=== PATIENT | male | born 1950 | race Caucasian/White ===

== ENCOUNTER 2017-02-13 19:36 | Inpatient (IN) | payer OTHER ==
[~2017-02-13] VITALS: Ht 195.6 cm; Wt 135.6 kg
[~2017-02-13 19:36] MED LIST: AMOXICILLIN500 MG PO; AUGMENTIN 875875 MG PO; CEPHALEXIN500 MG PO; CLINDAMYCIN300 MG PO; DEPO-TESTADIOL10 ML IM; ELIQUIS5 MG PO; FUROSEMIDE20 M1 PO; IBU800 MG PO; KEFLEX 250MG C250 MG PO; KLOR-CON M1010 ME1 PO; ROXICODONE5 MG PO; TYLENOL TAB 32325 MG PO; VITAMIN B121000 MC2 PO; VITAMIN C1000 M1 PO; VITAMIN D31000 I1 PO; XARELTO20 MG PO
--- NOTE | 2017-02-13 19:50 | ED GENERAL ADULT ---
History of Present Illness General Chief Complaint: General Adult Stated Complaint: BIBA FOR ?INFECTION Source: patient, family, old records, EMS Exam Limitations: no limitations Vital Signs & Intake/Output Vital Signs & Intake/Output Vital Signs Date Time Temp Pulse Resp B/P B/P Pulse O2 O2 Flow FiO2 Mean Ox Delivery Rate 02/14 423 99.5 102 20 80/51 91 Room Air / 0326 101.0 110 22 108/66 98 Room Air / 0228 101.1 107 18 131/77 97 Room Air / 0119 101.7 101 131/77 06/04 0042 90/56 06/ 0042 100.1 106 20 80/55 95 Room Air / 2226 100.0 104 20 110/74 96 Room Air 02/13 2124 101.7 02/13 2123 101.7 118 20 125/80 96 Room Air 02/13 2009 101.8 02/13 1947 130 18 168/74 97 02/13 1945 101.8 ED Intake and Output 02/14 0000 02/13 1200 Intake Total 1100 Output Total Balance 1100 Intake, IV 1100 Patient 300 lb Weight Allergies Coded Allergies: bacitracin (Severe, HIVES 02/13/17) ceftriaxone (From ROCEPHIN) (Severe, HIVES 02/13/17) doxycycline (Severe, HIVES 02/13/17) erythromycin base (Severe, HIVES 02/13/17) gentamicin (Severe, HIVES 02/13/17) Uncoded Allergies: MEDS WHICH ENDS WITH "BASILIO" (Severe, HIVES 03/02/11) DETERGENTS (RASH 05/31/14) Reconcile Medications Furosemide 20 MG TABLET 1 TAB PO DAILY fluid overload (Reported) Potassium Chloride (Klor-Con M10) 10 MEQ TAB.ER.PRT 1 TAB PO DAILY supplements (Reported) Testosterone (Depo-Testadiol Inj 2 MG/Ml-50 MG/Ml) 200 MG/ML VIAL 1 ML IM Q3W HRT (Reported) Triage Nurses Notes Reviewed? yes HPI: 66 year old male presents to the ER with shaking chills which started a few hours ago. He was at the [facility] in [place] earlier today without any symptoms. He had some initial abdominal discomfort. Denies any vomtiing or diarrhea. Denies dysuria. He states that his right lower extremity wound is much improved. He just saw Dr. jerry on Wednesday stated that it looked much improved. Complain of some pain at the site. Past History Travel History Traveled to [place] past 21 day No Medical History Any Pertinent Medical History? 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 No Review of Systems Review of Systems Constitutional: Reports: chills, fever. EENTM: Reports: no symptoms. Respiratory: Denies: cough, short of breath, sputum production. Cardiovascular: Denies: chest pain, palpitations, peripheral edema. GI: Reports: nausea. Denies: abdominal pain, vomiting. Genitourinary: Reports: no symptoms. Musculoskeletal: Reports: see HPI (right leg pain). Skin: Reports: no symptoms. Neurological/Psychological: Reports: no symptoms. Hematologic/Endocrine: Denies: bruising, bleeding, polyuria, polydipsia. Immunologic/Allergic: Denies: splenectomy. All Other Systems: Reviewed and Negative Physical Exam Physical Exam General Appearance: well developed/nourished, alert, awake, anxious, moderate distress, severe distress Head: atraumatic, normal appearance Eyes: Bilateral: normal appearance, PERRL, EOMI. Ears, Nose, Throat: normal pharynx, hearing grossly normal Neck: normal inspection, supple, full range of motion Respiratory: normal breath sounds, chest non-tender, no respiratory distress Cardiovascular: tachycardia Peripheral Pulses: 1+ radial (R), 1+ radial (L) Gastrointestinal: normal bowel sounds, soft, non-tender Extremities: RIGHT LEG ERYTHEMA Neurologic/Psych: no motor/sensory deficits, awake, alert, oriented x 3 Skin: RIGHT ANKLE MEDIAL OPEN WOUND Core Measures ACS in differential dx? No CVA/TIA Diagnosis: No Severe Sepsis Present: Yes BC x2: Yes Lactic Acid x2: Yes IV ABX Broad Spectrum: Yes NS/LR Started: Yes Septic Shock Present: No Progress Differential Diagnoses I considered the following diagnoses in my evaluation of the patient: [Pneumonia , sepsis, also myelitis, cellulitis, wound infection, UTI] Plan of Care: Orders Procedure Date/time Status Regular Diet 02/14 B Active CBC WITHOUT DIFFERENTIAL 02/14 600 Active BASIC ELECTROLYTES PLUS BUN&CR 02/14 06 Active LACTIC ACID 02/14 0432 Active Pathway - chart 02/14 0233 Active Code Status 02/14 0233 Active Patient Data 02/14 0128 Active ED Holding Orders 02/14 0116 Active Admit to inpatient 02/14 0116 Active Vital Signs 02/14 0116 Active Code Status 02/14 0116 Complete US-EXT BILAT VENOUS DOPPLER 02/14 UNK Active House Staff 02/14 UNK Active Wound Care/Dressing 02/14 UNK Active VTE Mechanical Prophylaxis 02/14 UNK Active Vital Signs 02/14 UNK Active Elevate 02/14 UNK Active Add-on Test (ER Only) 02/13 211 Active Intake & Output 02/14 2020 Active LIPASE 02/13 1950 Complete AMYLASE 02/13 1950 Complete Telemetry/Applications Development Analyst 02/13 1946 Active CULTURE,URINE 02/13 1946 Active BLOOD CULTURE 02/13 1946 Active URINALYSIS 02/13 194 Complete TROPONIN LEVEL 02/13 1946 Complete PARTIAL THROMBOPLASTIN TIME 02/13 1946 Complete PROTHROMBIN TIME 02/13 194 Complete LACTIC ACID 02/13 194 Complete COMPREHENSIVE METABOLIC PANEL 02/13 194 Complete CBC WITHOUT DIFFERENTIAL 02/13 1946 Complete EKG 02/13 1946 Active Current Medications Sig/Phillip Start time Last Medication Dose Stop Time Status Admin Ampicillin Sodium/ 3,000 MG Q6 02/14 06 AC Sulbactam Sodium (Unasyn) Sodium Chloride 100 ML (Normal Saline 0.9%) Heparin Sodium 5,000 UNIT Q8 02/14 0600 AC (Porcine) Sodium Chloride 1,000 ML BOLUS ONE 02/14 0445 UNVr (Normal Saline 0.9%) 02/14 0544 Sodium Chloride 1,000 ML BOLUS ONE 02/14 0430 UNVr 02/14 (Normal Saline 0.9%) 02/14 0529 0441 Acetaminophen 650 MG Q6P PRN 02/14 0245 AC (Tylenol) Acetaminophen 1,000 MG Q6 PRN 02/14 0245 AC 02/14 (Ofirmev) 0249 Morphine Sulfate 2 MG Q4P PRN 02/14 024 AC (Morphine) Sodium Chloride 1,000 ML Q13H 02/14 245 AC 02/14 (Normal Saline 0.9%) 02/15 0144 0441 Laboratory Tests 02/14/17 0450: Lactic Acid Pending 02/14/17 0450: Sodium Pending, Potassium Pending, Chloride Pending, Carbon Dioxide Pending, Anion Gap Pending, BUN Pending, Creatinine Pending, BUN/Creatinine Ratio Pending , CBC w Diff Pending, WBC Pending, RBC Pending, Hgb Pending, Hct Pending, MCV Pending, MCH Pending, RDW Pending, Plt Count Pending, MPV Pending, PUBS MCHC Pending 02/13/172029: Urine Color YEL, Urine Clarity CLEAR, Urine pH 8.0, Ur Specific Rosser 1.015, Urine Protein NEG, Urine Ketones NEG, Urine Nitrite NEG, Urine Bilirubin NEG, Urine Urobilinogen 1.0, Ur Leukocyte Esterase NEG, Ur Microscopic EXAM NOT REQUIRED, Urine Hemoglobin NEG, Urine Glucose NEG 02/13/171949: Lactic Acid Cancelled 02/13/171949: Anion Gap 12, Estimated GFR > 60, BUN/Creatinine Ratio 16.4, Glucose 115 H, Lactic Acid 1.5, Calcium 9.9, Total Bilirubin 0.9, AST 28, ALT 57, Alkaline Phosphatase 90, Troponin I < 0.01, Total Protein 8.2, Albumin 4.9, Globulin 3.3, Albumin/Globulin Ratio 1.5, Amylase 54, Lipase 184, PT 11.3, INR 1.08, APTT 30, CBC w Diff NO MAN DIFF REQ, RBC 5.57, MCV 97.8 H, MCH 31.7 H, RDW 14.8 H, MPV 8.6, Gran % 91.2 H, Lymphocytes % 4.5 L, Monocytes % 2.9, Eosinophils % 1.3, Basophils % 0.1, Absolute Granulocytes 12.0 H, Absolute Lymphocytes 0.6 L, Absolute Monocytes 0.4, Absolute Eosinophils 0.2, Absolute Basophils 0, PUBS MCHC 32.5 L Microbiology 02/13 2030 URINE ROUT: Urine Culture - RECD 02/13 1955 BLOOD: Blood Culture - RECD 02/13 1950 BLOOD: Blood Culture - RECD 8:51 PM PATIENT WITH EPIGASTRIC/LUQ ABDOMINAL PAIN. WILL SEND TO [facility] FOR CT ABDOMEN. 12:30 PM PATIENT BACK FROM [facility] [address] REPORT STILL PENDING [facility] CALLED. NOT READ YET. NS BOLUS ORDERED. PATIENT FEELING MUCH BETTER, BP 90/50. 02/14/2017 1:16:[address] findings as discussed with the radiology transporter from [place]': Gallstones but no evidence of acute cholecystitis Bilateral nonobstructive renal tachycardia Left inguinal node crushable lymphadenitis 1.9 cm left upper pole renal hypodensity consider follow-up for renal mass No acute obstruction or inflammatory process Small hiatal hernia (CARLOS ESCOBEDO,RICHIE) Diagnostic Imaging: Viewed by Me: Radiology Read, CT Scan. Discussed w/RAD: Radiology Read, CT Scan. Radiology Impression: PATIENT: MATHEW SUH PRESENT AGE: 66 PATIENT ACCOUNT NO: [id number] : 51 LOCATION: [facility] ORDERING PHYSICIAN: RICHIE GONZALEZ MD SERVICE DATE: 02/13/17 EXAM TYPE: RAD - XRY -PORTABLE CHEST XRAY; [id number], RIGHT; XRY-TWO VIEW RIGHT ANKLE EXAMINATION: Chest portable, right ankle 2 views and right tibia and fibula 2 views. CLINICAL INFORMATION: Fever and right uterus. COMPARISON: None TECHNIQUE: Chest chest AP one view. Right ankle 2 views. Right tibia and fibula 2 views. of the right ankle. FINDINGS: Chest: There is mild cardiomegaly with mild prominence of pulmonary vascularity suggestive of mild congestion. The lungs are well-expanded without acute consolidation. No gross bony abnormality seen. Right tibia and fibula: there is no visible acute fracture or dislocation. There are soft tissue calcifications probably from varicose veins. Right ankle: There is a moderate size calcaneal heel and a small retrocalcaneal spur. There is moderate soft tissue swelling medial and lateral ankle. The ankle mortise and subtalar joints are normal. No visible fracture or dislocation seen. IMPRESSION: Cardiomegaly with mild prominence of pulmonary vascularity suspicious for mild congestion. Unremarkable right tibia and fibula. Soft tissue calcification probably from underlying varicose veins. Moderate calcaneal heel and a small retrocalcaneal spur. DICTATED BY: JOAN WHIPPLE MD DATE/TIME DICTATED:02/13/172020 PASTORAL ASSISTANT:ARACELI DATE/TIME TRANSCRIBED:02/13/172020 CONFIDENTIAL, DO NOT COPY WITHOUT APPROPRIATE AUTHORIZATION. <Electronically signed in Other Vendor System> SIGNED BY: JOAN WHIPPLE MD 02/13/172028, CT - GALLSTONES, NO ACUTE CHOLECYSTITIS, B/L NONOBS RENAL STONES, 1.9 CM LEFT UPPER POLE RENAL HYPOTENSIVTY, SMALL HIATAL HERNIA, ? LEFT INGUINAL NODE LYMPHADENITIS Initial ED EKG: SINUS TACHYCARDIA Departure Departure Time of Disposition: 116 Disposition: STILL A PATIENT Condition: Stable Clinical Impression Primary Impression: Sepsis Secondary Impressions: Cellulitis Referrals: MARK ESCOBEDO,QUINTIN Camacho (PCP/Family) Departure Forms: Customer Survey General Discharge Information Admission Note Spoke With: KRISTA DEXTER MD Documentation of Exam: Documentation of any treatments & extenuating circumstances including Concerns Regarding Discharge (functional status, medication knowledge or non-compliance, living conditions, etc.) that warrant an admission rather than observation: [IV FLUIDS, IV ABX, F/U BLOOD CULTURES, VASCULAR/WOUND CONSULT] Critical Care Note Critical Care Note Critical Care Time: non-applicable
[2017-02-13 20:07] LABS: ABSOLUTE BASOPHIL COUNT 0 /CUMM (0.0-0.2); ABSOLUTE EOSINOPHIL COUNT 0.2 /CUMM (0.0-0.7); ABSOLUTE LYMPH COUNT 0.6 /CUMM (1.2-3.4); ABSOLUTE MONOCYTE COUNT 0.4 /CUMM (0.10-0.60); BASOPHIL % 0.1 % (0.0-2.0); EOSINOPHIL % 1.3 % (0-5); HEMATOCRIT 54.5 % (42-52); MEAN CORPUSCULAR HGB 31.7 PG (27.0-31.0); MEAN CORPUSCULAR HGB CONC 32.5 G/DL (33.0-37.0); MEAN CORPUSCULAR VOLUME 97.8 FL (80.0-94.0); MEAN PLATELET VOLUME 8.6 FL (7.4-10.4); PLATELET COUNT 208 /CUMM (130-400); RBC DISTRIBUTION WIDTH 14.8 % (11.5-14.5); RED BLOOD CELL CT 5.57 /CUMM (4.70-6.10); WHITE BLOOD CELL COUNT 13.2 /CUMM (4.8-10.8)
[2017-02-13 20:10] LABS: GRANULOCYTE % 91.2 % (42.2-75.2)
[2017-02-13 20:15] LABS: PT 11.3 SEC (9.4-12.5); PTT 30 SEC (25-37)
--- NOTE | 2017-02-13 20:17 | NUR ---
PRESENTED TO ER VIA EMS FEVER CHILLS GEN NOT FEELING WELL 1 WEEK POST OF ON FOOT ULCERS SOA BY ER MD EKG PREFORMED IV MED LOCK EST RIGHT AC BLOOD WORK DRAWN INCLUDING BC X1 IV 1000 ML NS AT BOLUS TYLENOL 1 GM IVPB PORTABLE X-RAYS DONE
--- NOTE | 2017-02-13 20:29 | RADIOLOGY REPORT ---
EXAMINATION: Chest portable, right ankle 2 views and right tibia and fibula 2 views. CLINICAL INFORMATION: Fever and right uterus. COMPARISON: None TECHNIQUE: Chest chest AP one view. Right ankle 2 views. Right tibia and fibula 2 views. of the right ankle. FINDINGS: Chest: There is mild cardiomegaly with mild prominence of pulmonary vascularity suggestive of mild congestion. The lungs are well-expanded without acute consolidation. No gross bony abnormality seen. Right tibia and fibula: there is no visible acute fracture or dislocation. There are soft tissue calcifications probably from varicose veins. Right ankle: There is a moderate size calcaneal heel and a small retrocalcaneal spur. There is moderate soft tissue swelling medial and lateral ankle. The ankle mortise and subtalar joints are normal. No visible fracture or dislocation seen. IMPRESSION: Cardiomegaly with mild prominence of pulmonary vascularity suspicious for mild congestion. Unremarkable right tibia and fibula. Soft tissue calcification probably from underlying varicose veins. Moderate calcaneal heel and a small retrocalcaneal spur.
--- NOTE | 2017-02-13 20:33 | NUR ---
VOIDED 200 ML SPEC SENT
--- NOTE | 2017-02-13 21:00 | NUR ---
[facility] CALLED FOR PT TRANSPORT TO [facility] FOR CT SCAN RUN #[id number] ETA GIVEN WITH IN THE HOUR
--- NOTE | 2017-02-13 21:04 | NUR ---
RE-EVAL BY JOSE ESCOBEDO 2ND BC OBTAINED FD [id number] IVPB STARTED
--- NOTE | 2017-02-13 22:24 | NUR ---
TEMP IMPROVED NOW 100 EMS PRESENT FOR TRANS TO CT
--- NOTE | 2017-02-13 22:32 | NUR ---
PT TO [facility] FOR CT SCAN WITH [facility] AT THIS TIME
[2017-02-14] VITALS (7 sets, daily range): BP systolic 80–130; BP diastolic 50–70
--- NOTE | 2017-02-14 00:22 | NUR ---
PT RETURNS FROM CT SCAN AT [facility] AT THIS TIME. DISC GIVEN TO DR GONZALEZ
--- NOTE | 2017-02-14 00:45 | NUR ---
PT NOTED TO BE HYPOTENSIVE, AUTO B/P 80/55, MANUAL 90/56 RECONNECTED IVF N/S 1ST LITER BOLUS (HAD BEEN HALTED FOR TRANSPORT TO/FROM CT SCAN). PT WAS SITTING IN CHAIR AT TIME OF B/P CHECK. UPON GETTING BACK ON STRETCHER REPORTED SOME DIZZINESS. DR GONZALEZ MADE AWARE OF HYPOTENSION, WILL ORDER ADDITIONAL 500 ML N/S BOLUS AFTER THIS LITER COMPLETED.
--- NOTE | 2017-02-14 02:05 | NUR ---
HOUSESTAFF WITH PT
--- NOTE | 2017-02-14 02:30 | History & Physical ---
NATHALY COFFMAN 02/14/17 0230: General Information and HPI MD Statement: I have seen and personally examined MATHEW SILVERMAN and documented this H&P. The patient is a 66 year old M who presented with a patient stated chief complaint of shaking chills, abdominal discomfort Source of Information: patient, old records Exam Limitations: no limitations History of Present Illness: Mr Silverman is a 66-year-old man who is known to be in his usual state of health until 2 days ago. He has a past medical history of hypertension, chronic venous stasis ulcers( s/p multiple skin grafts ), left lower extremity DVT ( Tx w/ Xarelto). He came to [facility] with a chief concern of shaking chills, abdominal discomfort, bilateral lower extremity pain x 2 days. As per the patient, he developed abdominal discomfort 2 days ago, located in the center of the abdomen, occasional, severity 5-6/10, no aggravating or relieving factors. Reported lower extremity pain, bilateral, located in the calf region, 6/10, with no radiation, relieved upon rest. No change in erythema or tenderness in lower extremities. This a.m., a few hours after dining at an outdoor [employer] festival, he developed shaking chills and worsening abdominal discomfort. No nausea, vomiting or diarrhea. No dysuria, but reported discomfort in the right flank region. No shortness of breath, chest pain or palpitations. Reported myalgias; reported sick contact at work. Sees Dr. Manuel (vascular surgeon), Robel Gamboa MD (PCP). Allergies/Medications Allergies: Coded Allergies: bacitracin (Severe, HIVES 02/13/17) ceftriaxone (From ROCEPHIN) (Severe, HIVES 02/13/17) doxycycline (Severe, HIVES 02/13/17) erythromycin base (Severe, HIVES 02/13/17) gentamicin (Severe, HIVES 02/13/17) Uncoded Allergies: MEDS WHICH ENDS WITH "BASILIO" (Severe, HIVES 03/02/11) DETERGENTS (RASH 05/31/14) Home Med list Furosemide 20 MG TABLET 1 TAB PO DAILY fluid overload (Reported) Potassium Chloride (Klor-Con M10) 10 MEQ TAB.ER.PRT 1 TAB PO DAILY supplements (Reported) Testosterone (Depo-Testadiol Inj 2 MG/Ml-50 MG/Ml) 200 MG/ML VIAL 1 ML IM Q3W HRT (Reported) Past History Travel History Traveled to [place] past 21 day No Medical History Neurological: NONE EENT: NONE Cardiovascular: poor circulation ULCERS Respiratory: NONE Gastrointestinal: NONE Hepatic: NONE Renal: NONE Musculoskeletal: NONE Psychiatric: NONE Endocrine: NONE Blood Disorders: NONE Cancer(s): NONE 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 Ambulation: independent IADLs Independent: shopping, housework, finances, food prep, telephone, transportation , medication admin. Review of Systems Review of Systems Constitutional: Reports: see HPI. EENTM: Denies: blurred vision. Cardiovascular: Denies: chest pain, orthopena. Respiratory: Denies: cough, short of breath. GI: Reports: abdominal pain. Denies: constipation, diarrhea, melena, nausea, changes in stool. Genitourinary: Denies: discharge. Musculoskeletal: Denies: back pain. Skin: Denies: cysts, erythema. Neurological/Psychological: Denies: anxiety, depressed. Hematologic/Endocrine: Denies: bruising. Exam & Diagnostic Data Last 24 Hrs of Vital Signs/I&O Vital Signs Date Time Temp Pulse Resp B/P B/P Pulse O2 O2 Flow FiO2 Mean Ox Delivery Rate 02/15 228 101.1 107 18 131/77 97 Room Air 02/14 0119 101.7 101 131/77 / 0042 90/56 06/ 0042 100.1 106 20 80/55 95 Room Air 02/13 2226 100.0 104 20 110/74 96 Room Air 02/14 2124 101.7 02/13 2123 101.7 118 20 125/80 96 Room Air 02/13 2009 101.8 02/13 1947 130 18 168/74 97 02/13 1945 101.8 Intake & Output 02/14 0800 / 0000 02/13 1600 Intake Total 1100 Output Total Balance 1100 Intake, IV 1100 Patient 300 lb Weight Physical Exam General Appearance Alert, Oriented X3, Cooperative, no lymphadenopathy Skin No Rashes, No Breakdown Skin Temp/Moisture Exam: Warm/Dry Sepsis Skin Exam (color): Normal for Ethnicity, Cyanotic HEENT Atraumatic, PERRLA, EOMI Neck Supple, No JVD, No thryomegaly Lymphatic Cervical nl Cardiovascular Regular Rate, Normal S1, Normal S2, No Murmurs Lungs Normal Air Movement Abdomen Normal Bowel Sounds, Soft, No Tenderness Neurological Normal Gait, Normal Speech, Strength at 5/5 X4 Ext, Normal Tone Extremities No Cyanosis, erythema extending from the ankle upto the knee on the left leg small ulcer 1cm x 1cm on the medial aspect of left foot ulcer on the medial aspect of right foot 3cm x 3 cm Ulcers are not assoicated w/ any purulent discharge. Tenderness of the left lower extremity Vascular Pulses Symmetrical Sepsis Peripheral Pulse Location: Dorsalis Pedis Sepsis Peripheral Pulse Exam: Normal Sepsis Cap Refill Exam: <2 Sec Body Front and Back (Adult) 1) ulcer [id number] 2) ulcer 3cm x 3 cm 3) tender erythematous from ankle to knee Last 24 Hrs of Labs/Janes: Laboratory Tests 02/13/17 2030: Urine Color YEL, Urine Clarity CLEAR, Urine pH 8.0, Ur Specific [place] 1.015, Urine Protein NEG, Urine Ketones NEG, Urine Nitrite NEG, Urine Bilirubin NEG, Urine Urobilinogen 1.0, Ur Leukocyte Esterase NEG, Ur Microscopic EXAM NOT REQUIRED, Urine Hemoglobin NEG, Urine Glucose NEG 02/13/17 1950: Lactic Acid Cancelled 02/13/17 1950: Anion Gap 12, Estimated GFR > 60, BUN/Creatinine Ratio 16.4, Glucose 115 H, Lactic Acid 1.5, Calcium 9.9, Total Bilirubin 0.9, AST 28, ALT 57, Alkaline Phosphatase 90, Troponin I < 0.01, Total Protein 8.2, Albumin 4.9, Globulin 3.3, Albumin/Globulin Ratio 1.5, Amylase 54, Lipase 184, PT 11.3, INR 1.08, APTT 30, CBC w Diff NO MAN DIFF REQ, RBC 5.57, MCV 97.8 H, MCH 31.7 H, RDW 14.8 H, MPV 8.6, Gran % 91.2 H, Lymphocytes % 4.5 L, Monocytes % 2.9, Eosinophils % 1.3, Basophils % 0.1, Absolute Granulocytes 12.0 H, Absolute Lymphocytes 0.6 L, Absolute Monocytes 0.4, Absolute Eosinophils 0.2, Absolute Basophils 0, PUBS MCHC 32.5 L Microbiology 02/13 2030 URINE ROUT: Urine Culture - RECD 02/13 1955 BLOOD: Blood Culture - RECD 02/13 1950 BLOOD: Blood Culture - RECD Diagnostic Data EKG Results HR 132, QRS axis, no ST-T wave changes. CXR Results Cardiomegaly with mild prominence of pulmonary vascularity suspicious for mild congestion. Assessment/Plan Assessment: He is a middle-age man who was a past medical history of chronic venous stasis ulcers, is being evaluated for shaking chills, fever likely from lower extremity cellulitis. At the time of admission, temperature 101.8 (persistently elevated), heart rate 130, RR 18, BP 108/74 (remained on the lower side), 97% on room air. Lab findings indicated leukocytosis WBC 13.2 (granulocytosis 91.2%), hemoglobin 17.7 (likely from hormonal use), MCV 97.8, platelets 208, normal electrolytes and normal renal function. Lactate 1.5 (Lactate level pending), AST 128, ALT 57. Radiological findings-chest x-ray, x-ray tibia-fibula, x-ray right ankle did not reveal any acute pathology. Differential diagnoses: #1 left lower extremity cellulitis #2 gastroenteritis #3 viral infection Below is the problem list and plan: #1 fever, shaking chills-likely due to severe infection. Sepsis with likely source being left lower extremity ulcers/cellulitis. Physical findings, radiological findings are suggestive of left lower extremity cellulitis. Other source such as gastrointestinal, renal need to be ruled out. Patient was begun on Unasyn. Plan to continue the same antibiotic for now. May narrow antibiotic coverage pending clinical improvement and or culture results. Aggressive fluid resuscitation for adequate blood pressure control. Tylenol for fever. CT abdomen was suggestive of cholelithiasis, but did not have any physical findings suggestive of cholecystitis. Trend lactate And WBC count. Check HbA1c. #2 history of DVT, left lower extremity calf is swelling/pain-reports family history of venous thromboembolism, and also was treated with anticoagulant in the past. Obtain records pertaining information about testosterone use. Check venous Doppler to rule out any new thromboembolism. Subcutaneous anticoagulant for now. As Ranked By This Provider Problem List: 1. Sepsis 2. Cellulitis of left lower extremity Core Measures/Miscellaneous Acute Coronary Syndrome ACS Diagnosis: No Cerebrovascular Accident CVA/TIA Diagnosis: No Congestive Heart Failure CHF Diagnosis: No Venous Thromboembolism VTE Risk Factors: Age > 40 [facility] prophylaxis d/t: VTE low risk No VTE Pharm Prophylaxis d/t: No contraindications VTE Diagnosis: No VTE Type: NONE VTE Confirmed by (Test): NONE Severe Sepsis Severe Sepsis Present: Yes BC x2: Yes Lactic Acid x2: Yes IV ABX Broad Spectrum: Yes NS/LR Started: Yes Septic Shock Septic Shock Present: No Miscellaneous Documentation Attending Case Discussed With: KRISTA DEXTER MD Primary Care Physician: QUINTIN GAMBOA MD Patient sees these Specialists dr. Manuel Level of Patient Care: General Medicine FIDELINA CORDOVA 02/14/17 0313: Resident Review Statement Resident Statement: examined this patient, discussed with compliance intern, agreed with compliance intern, discussed with family, reviewed EMR data (avail), discussed with nursing , discussed with case mgmt, reviewed images, amended to note Other Findings: 66-year-old male with a past medical history of DVT (February 2015) currentky not on AC, chronic venous stasis ulcers, hypertension and obesity, osteopenia on testosterone depot injections, s/p vascular stent of RLE s/p venous ablation (F/ U with Dr. Manuel) presented to the ED with chief complaints of shaking chills that started a few hours ago. Patient states that he wore an ill- fitting shoe and developed a blister on his left foot. For the past 3-4 days he has been experiencing pain in his calfs that occurs on rest as well as on exertion. He states he went to a [facility] this [facility] and since then has been experiencing fevers, chills and has been feeling weak. States that this has happended to him before (2 years ago) and at that time he was diagnosed with cellulitis. He therefore decided to come to the ED. Of note, he followed up with Dr. Manuel on Wednesday, and was told that everything looked normal. Of note, patient has had multiple skin grafts placed, the last one being about a year ago. He endorses epigastric pain that has been going on for the past 2 days now. Denies any association with food, or radiation to the back. Took Pepcid, to no avail. Was told that he has GERD and has not been taking caffienated drinks such as coffee. Also endorsed R flank pain, but denies urinary frequency, hematuria, burning micturition. Denies any chest pain, shortness of breath, cough, palpitations, headcahe, blurry vision, alterations in bowel movements, vomiting, nausea. Vitals at the time of admission blood pressure 110/74, respiratory rate of 20, tachycardic to 118, MAXIMUM TEMPERATURE of 101.8F saturating 96% on room air. On physical exam he is morbidly obese, and in mild distress lying on the bed. HEENT revealed PERRLA, moist mucous membranes. Examination of neck did not reveal an elevated JVP, no LAD. Cardiovascular exam revealed normal S1, S2, no murmurs, rubs or gallops appreciated. Respiratory exam unremarkable with CTAB. Abdominal exam pertinent for tenderness to palpation in epigastrium and positive for right sided CVA tenderness, King's was negative. Neuro exam was grossly unremarkable. Examination of lower extermities pertinent for B/L lower extremity edema 3+, extending up to the knee, chronic venous stasis changes, with erythema of LLE, as well as a 3cm x2cm ulcer located along the R medial malleolus, and a 1cm x2cm ulcer located right below the left mallelous. Labs pertinent for leukocytosis with a white blood cell count of 13,200 with a left shift, H&H of 17.7/54.5, MCV elevated to 97.8 with a platelet count 208, 000. Serum chemistries pertinent for sodium 142, potassium of 4.3, bicarbonate of 30, anion gap of 12, the ON 18 with a creatinine of 1.1. Serum glucose elevated to 115. Lactic acid 1.5. LFTs unremarkable with an AST/ALD of 20/57, alkaline phosphatase of 90, troponin I less than 0.01. Serum amylase of 54, lipase of 184. INR 1.08 UA unremarkable. Chest x-ray revealed cardiomegaly with mild prominence pulmonary vascular and lymphatic suspicious for mild congestion. Xray of right tibia and fibula was unremarkable with soft tissue calcification and moderate Glenohumeral and small retrocalcaneal spur. In the ER he received normal saline bolus thousand pulse 1, Protonix 40 mg IV 1, Toradol 30 mg IV 1, Unasyn 3000 mg IV 1 and Tylenol thousand milligrams IV EKG revealed sinus tachycardia, with HR: 132, normal axis, no ST-T changes. CT Abdomen/Pelvis revealed gall staones with - cholecystitis, b/l non- opbstructing renal stoens, left inguinal node ? lymphadenitis, a R 1.9cm upper pole renal hypodensity ? renal mass, no acute obstruction, small hiatal hernia. Assessment and Plan Admit patient to [facility]. #Sepsis 2/2 cellultis of left foot vs ulcer - Most likely vs abdominal source vs renal (unlikley - however +ve CVA tednerness on R side, UA was unremarkable) Start him on Ceftaz 1000mg Q8 for cellulitis (patient has grown Pseudomonas in the past - hwoever, unsure if tehse were superficial wound cultures and traeting for Pseudomonas would be an overkill). Will obtain ID consult in AM and consider narrowing antibiotics He already received 1000ml of NaCL in the ER. Bolus him with another 2 L of NaCl , and monitor vitals. Low threshold for trasnfer to unit if BP continues to remain low. F/U blood cultures x2 a,nd urine cultures. Will hold Lasix 20mg daily for now, given soft blood pressures. F/U R lactic acid. Will obtain and X ray of the left foot to r/o NF given acute changes on LLE. #Elevated blood glucose - His HbA1c in November was impaired 6.2 - F/U Hba1C. #Pain in LE's with b/l swelling and chronic venous stasis changes. US Doppler of LE to r/o PE (given ST, LLE>>RLE, and pain with hx of clooting disorder in family and prev DVT) Holding Lasix for now given sepsis with soft blood pressures. - DVT Prophylaxis - Heaprin 5000 TID SC - Code Status - Full Code [facility], [facility] 02/14/17 0620: Attending MD Review Statement Attending Statement Attending MD Statement: examined this patient, discuss w/resident/PA/SUPERINTENDENT MARINE, agreed w/resident/PA/SUPERINTENDENT MARINE Attending Assessment/Plan: 66 yo M with chronic venous insufficiency s/p venous stenting, ablation, vein closure and grafts, chronic nonhealing ulcer of his right medial malleolus, RLE DVT off AC, osteopenia on testosterone depot, last admitted to [place] (Apr 2015 ) for LLE cellulitis, is here with c/o chills, calf pain and abdominal discomfort. He reports that the left calf is always more swollen and erythematous compared to right leg, and he follows up with Vascular/ Wound for his chronic nonhealing wounds. He went to a [employer] fair at [place] yesterday, ate mousakka and started having right sided abdominal/ epigastric discomfort, no nausea, vomiting or diarrhea. Took pepcid with no relief. GERD+. Denies urinary symptoms. Vitals: Tmax 101.8, tachycardic, BP 110/74 --> 80/55 that responded to fluids -- > 131/77. He dropped one more time, but is responding to fluid bolus, sats 98% RA. Chest clear, Heart S1S2 tachycardic, Abd soft, minimal epigastric tenderness , right CVA tenderness ?significance, King's negative. LE: chronic venous stasis, 2+ pitting edema, chronic ulcer right medal malleolus and LLE is erythematous, warm, tender with small punctate wound below medial malleolus. Labs: WBC 13.2, hemeconcentrated, macrocytosis, Creat 1.1, lactic acid normal, trop neg, amylase/lipase neg. UA neg. CXR: cardiomegaly with mild congestion. Right tibia/fibula xray unremarkable. EKG: Sinus tachycardia. CT abd/pelvis: cholelithiasis, no cholecystitis, bilateral nonobstructing renal calculi, left kidney upper pole density ?neoplasm, enlarged left inguinal LN, hiatal hernia. 1. Severe sepsis without septic shock 2/2 left lower extremity cellulitis with chronic venous stasis and chronic nonhealing ulcer to right foot. No evidence of pneumonia or UTI. No other areas concerning for SSTI. He probably has viral gastroenteritis, no e/o obstruction or colitis. Biliary colic is possible, but LFTs are normal. Renal colic is another possibility but calculi are nonobstructing, no obstructive uropathy, UA is clear. GM admit, panculture, IV fluids, monitor for fluid overload, patient received IV Unasyn in ER. His previous foot cultures have grown Pseudomonas, MSSA and Serratia. Will cover with Ceftaz for now, please consult ID in AM. If persistently hypotensive, low threshold for ICU transfer. Trend lactic acid. Image the right leg/ foot. Rule out DVT with LE dopplers. IV PPI. Obtain wound and Vascular consult. Manage diabetes. DVT ppx Hep SC. Full code. Update at 7.30 am: Notified by microbiology, patient is growing GPC in chain in one of the two sets of blood culture drawn on admission. Antibiotics changed to Unasyn.
--- NOTE | 2017-02-14 02:49 | NUR ---
Emergency Dept UC Admit Note: To be admitted to by DR. DEXTER with RT LOWER EXTREMITY CELLULITIS as the diagnosis, to 2NB #203-1 location. Nursing Agricultural Extension Educator and admitting notified 02/14/17 at 0243
--- NOTE | 2017-02-14 02:51 | NUR ---
MEDICATED WITH KEFZOL AND IV TYLENOL ORDERED
--- NOTE | 2017-02-14 03:23 | NUR ---
ASSUMED PRIMARY CARE, PREVIOUS NURSE ATTEMPTED REPORT PRIOR TO LEAVING, BUT WAS UNABLE TO GIVE REPORT. PT CO OF "SWEATING" ARMS WARM AND DRY FOREHEAD SL MOIST. LLE RED KNEE TO TOE FROM CHRONIC VENOUS STASIS. RLE ULCER TO ANKLE, LEG RED AND WRAN.
--- NOTE | 2017-02-14 03:47 | NUR ---
REPORT TO DESIREE AWARE THAT THIS RN ADVANCED HAS ONLY ASSUMED CARE 15 MINUTES AGO, REPORT GIVEN. AWAITING ASSISTANCE TO TRANSPORT.
--- NOTE | 2017-02-14 04:37 | Admission Certification ---
Admission Certification Certification Statement - As attending physician, I certify that at the time of - admission, based on clinical presentation, severity of - symptoms, need for further diagnostic testing and - therapeutic interventions, and risk of adverse outcomes - without in-hospital treatment, in my clinical assessment, - this patient requires an acute hospital stay for a minimum - of two nights or longer. I have also considered psychsocial - factors such as support system, advanced age, financial - issues, cognitive issues, and failed out-patient treatments, - past re-admission history, safety of patient, and lack of - compliance as applicable. Specific rationale supporting this admission is: Severe sepsis secondary to LLE cellulitis.
[2017-02-14 05:38] LABS: ABSOLUTE BASOPHIL COUNT 0 /CUMM (0.0-0.2); ABSOLUTE EOSINOPHIL COUNT 0 /CUMM (0.0-0.7); ABSOLUTE GRANULOCYTE CT 16.9 /CUMM (1.4-6.5); ABSOLUTE LYMPH COUNT 0.3 /CUMM (1.2-3.4); ABSOLUTE MONOCYTE COUNT 0.5 /CUMM (0.10-0.60); BASOPHIL % 0 % (0.0-2.0); EOSINOPHIL % 0 % (0-5); GRANULOCYTE % 95.4 % (42.2-75.2); MEAN CORPUSCULAR HGB 31.8 PG (27.0-31.0); MEAN CORPUSCULAR HGB CONC 32.9 G/DL (33.0-37.0); MEAN CORPUSCULAR VOLUME 96.8 FL (80.0-94.0); MEAN PLATELET VOLUME 9.1 FL (7.4-10.4); PLATELET COUNT 180 /CUMM (130-400); RBC DISTRIBUTION WIDTH 14.9 % (11.5-14.5); RED BLOOD CELL CT 4.85 /CUMM (4.70-6.10); WHITE BLOOD CELL COUNT 17.7 /CUMM (4.8-10.8)
[2017-02-14 05:44] LABS: HEMATOCRIT 46.9 % (42-52)
--- NOTE | 2017-02-14 08:24 | Event Note ---
Event Note Event Note: One set of BC growing [facility]CC. Will switch him to Unasyn and D/C Ceftaz.
--- NOTE | 2017-02-14 08:56 | NUR ---
NURSING NOTE: 0730AM ASSUMED CARE OF PT. VITALS RECHECK AND DOCUMENTED; TEMP 99.4. PT AWAKE, A/OX3, BLOOD CULTURES DRAWN AGAIN THIS AM BY MST PER MD ORDER. IV ANTIBX INFUSING AT THIS TIME PER MD ORDER. PT OOB TO CHAIR INDEP THIS AM. ASKED FOR VICODIN INSTEAD OF MORPHINE; MOD CALLED AND CHANGED IT. NEEDS IN REACH, SAFETY MAINTAINED. PT DENIES COMPLAINTS AT THIS TIME
--- NOTE | 2017-02-14 09:59 | NUR ---
NURSING NOTE: PT LEFT FLOOR VIA STRETCHER WITH DISTRIBUTION FOR L FOOT XRAY AND BLE US PER MD ORDER. PT AWAKE,A/OX3, IV PATENT, DENIES PAIN. PT IN SARAH COAT, DSGS TO ANKLES INTACT. AWAIT RETURN TO FLOOR. TICKET TO RIDE COMPLETE.
--- NOTE | 2017-02-14 12:07 | Cons- Vascular Surgery ---
General Information and HPI Consulting Request Date of Consult: 02/14/17 Requested By: ISACC ESCOBEDO,KRISTA History of Present Illness: 66-year-old male with chronic venous insufficiency. Patient has a long history of bilateral medial malleolar ulcers, due to chronic venous hypertension. Has history of venous stenting by Dr. Manuel. As has prior history of left leg DVT. Patient has been followed at the wound clinic for the ankle ulcers. has had skin grafting done in the past. Recently admitted with left leg pain, high fevers, abdominal pain. Patient states his left leg is chronically red, and swollen, that is unclear, if there was a significant change recently. Allergies/Medications Allergies: Coded Allergies: bacitracin (Severe, HIVES 02/13/17) ceftriaxone (From ROCEPHIN) (Severe, HIVES 02/13/17) doxycycline (Severe, HIVES 02/13/17) erythromycin base (Severe, HIVES 02/13/17) gentamicin (Severe, HIVES 02/13/17) Uncoded Allergies: MEDS WHICH ENDS WITH "BASILIO" (Severe, HIVES 03/02/11) DETERGENTS (RASH 05/31/14) Home Med List: Furosemide 20 MG TABLET 1 TAB PO DAILY fluid overload (Reported) Potassium Chloride (Klor-Con M10) 10 MEQ TAB.ER.PRT 1 TAB PO DAILY supplements (Reported) Testosterone (Depo-Testadiol Inj 2 MG/Ml-50 MG/Ml) 200 MG/ML VIAL 1 ML IM Q3W HRT (Reported) Current Medications: Current Medications Sig/Phillip Start time Last Medication Dose Route Stop Time Status Admin Acetaminophen 650 MG ONCE ONE 02/14 07 DC 02/14 PO 02/14 0701 0706 Acetaminophen 0 .STK-MED ONE 02/146 DC IV Acetaminophen 650 MG Q6P PRN 02/14 0245 AC PO Acetaminophen 1,000 MG Q6 PRN 02/14 0245 AC 02/14 IV 0249 Acetaminophen 0 .STK-MED ONE 02/13 2007 DC IV Acetaminophen 1,000 MG ONCE ONE 02/14 2000 DC 02/13 N/A 1 UNIT IV 02/13 Acetaminophen/ 1 TAB Q4P PRN 02/14 0800 AC 02/14 Hydrocodone Bitart PO 0841 Ampicillin Sodium/ 3,000 MG Q6H 02/14 0739 AC 02/14 Sulbactam Sodium IV 0842 Sodium Chloride 100 ML Ampicillin Sodium/ 3,000 MG Q6 02/14 600 DC Sulbactam Sodium IV Sodium Chloride 100 ML Ampicillin Sodium/ 0 .STK-MED ONE 02/13 2046 DC Sulbactam Sodium .ROUTE Ampicillin Sodium/ 3,000 MG ONCE ONE 02/13 2030 DC 02/13 Sulbactam Sodium IV 02/13 Sodium Chloride 100 ML Cefazolin Sodium 1,000 MG IQ8 02/14 0800 DC 02/14 IV 0249 Cefazolin Sodium 0 .STK-MED ONE 02/14 024 DC .ROUTE Ceftazidime 1,000 MG IQ8 02/14 0800 CAN IV Diphenhydramine HCl 25 MG Q6P PRN 02/14 07 DC IV Heparin Sodium 5,000 UNIT Q8 02/14 06 AC 02/14 (Porcine) SC 0626 Ketorolac 30 MG ONCE ONE 02/13 213 DC 02/13 Tromethamine IV 02/13 Ketorolac 0 .STK-MED ONE 02/13 2126 DC Tromethamine .ROUTE Morphine Sulfate 2 MG Q4P PRN 02/14 024 DC IV Pantoprazole Sodium 40 MG DAILY 02/14 1000 AC 02/14 IV 0841 Pantoprazole Sodium 40 MG ONCE ONE 02/13 2045 DC 02/13 IV 02/13 Pantoprazole Sodium 0 .STK-MED ONE 02/13 2045 DC IV Sodium Chloride 1,000 ML BOLUS ONE 02/14 0445 DC 02/14 IV 02/14 0544 0516 Sodium Chloride 1,000 ML BOLUS ONE 02/14 0430 DC 02/14 IV 02/14 0529 0441 Sodium Chloride 1,000 ML Q13H 02/14 0245 AC 02/14 IV 02/15 0144 0441 Sodium Chloride 1,000 ML BOLUS ONE 02/14 0100 DC 02/14 IV 02/14 0159 0248 Sodium Chloride 1,000 ML BOLUS ONE 02/14 2000 DC 02/13 IV 02/13 Past History Medical History Blood Transfusion Hx: No Neurological: NONE EENT: NONE Cardiovascular: poor circulation ULCERS Respiratory: NONE Gastrointestinal: NONE Hepatic: NONE Renal: NONE Musculoskeletal: NONE Psychiatric: NONE Endocrine: NONE Blood Disorders: NONE Cancer(s): NONE 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 Home Services at Home: None Smoking Status: Never Smoked ETOH Use: DAILY WINE Functional Ability ADLs Independent: dressing, eating, toileting, bathing. Ambulation: independent IADLs Independent: shopping, housework, finances, food prep, telephone, transportation , medication admin. Review of Systems Review of Systems Constitutional: Reports: chills, fever. EENTM: Denies: no symptoms. Cardiovascular: Denies: chest pain. Respiratory: Denies: short of breath. GI: Reports: abdominal pain. Musculoskeletal: Denies: back pain. Neurological/Psychological: Denies: no symptoms. Hematologic/Endocrine: Denies: bleeding. Exam & Diagnostic Data Vital Signs and I&O Vital Signs Date Time Temp Pulse Resp B/P B/P Pulse O2 O2 Flow FiO2 Mean Ox Delivery Rate 02/14 0748 99.4 / 0747 99.4 92 20 118/70 93 Room Air / 0706 101.0 / 0630 101.0 93 18 120/57 93 Room Air 06/04 0524 100/50 06/04 0430 99.5 06/04 0423 99.5 102 20 80/51 91 Room Air 06/04 0326 101.0 110 22 108/66 98 Room Air 06/04 0228 101.1 107 18 131/77 97 Room Air 06/04 0119 101.7 101 131/77 06/04 0042 90/56 06/04 0042 100.1 106 20 80/55 95 Room Air 06/03 2226 100.0 104 20 110/74 96 Room Air /4 101.7 /3 101.7 118 20 125/80 96 Room Air / 2009 101.8 02/13 194 130 18 168/74 97 / 194 101.8 Intake & Output 02/14 1600 / 0800 06/04 0000 / 1600 / 0800 / 0000 Intake Total 2000 1100 Output Total Balance 1999 1100 Intake, IV 2000 1100 Patient 136.078 kg 136.078 kg Weight Weight Reported by Patient Measurement Method Physical Exam General Appearance: well developed/nourished, no apparent distress, alert, awake Head: normal appearance Eyes: Bilateral: normal appearance. Neck: normal inspection Respiratory: normal breath sounds Cardiovascular: regular rate/rhythm Peripheral Pulses: 3+ dorsalis pedis (R), 3+ dorsalis pedis (L) Gastrointestinal: soft, non-tender Extremities: inflammation (bilateral lower leg hyperpigme), swelling (left leg edema, mild erythema) Neurologic/Psych: no motor/sensory deficits, awake, alert, oriented x 3 Assessment/Plan Assessment/Plan C6 Chronic venous insufficiency, chronic medial ankle ulcers b/l. Now with cellulitis of left leg, and fever. Wounds look OK, but left leg with erythema. Agree with IV abx for a few days for cellulitis, and then transition to PO abx. Upon discharge, compression bandages/stockings to both lower extremities. Upon discharge, F/u with Dr. Manuel during the week. Problem List: 1. Chronic venous hypertension (idiopathic) with inflammation of bilateral lower extremity 2. Cellulitis of left lower extremity Consult Acknowledgment - Thank you for your consult request.
--- NOTE | 2017-02-14 12:48 | Cons- Infect Disease ---
General Information and HPI Consulting Request Date of Consult: 02/14/17 Requested By: ISACC ESCOBEDO,KRISTA Reason for Consult: Positive blood cultures for gram-positive cocci in chains Source of Information: patient, old records History of Present Illness: This is a 66-year-old man with a history of venous insufficiency, status post multiple ablations and skin grafts, with a 30 year history of a nonhealing right medial malleolar ulcer, last hospitalized 2 years prior to admission with a right lower extremity cellulitis, at which time he was diagnosed with a right popliteal vein DVT, for which he was treated with Xarelto, which was discontinued several months prior to admission, with chronic left lower extremity swelling, admitted on February 14 with several days of bilateral calf pains and the acute onset of fevers, chills and abdominal discomfort. On admission he was febrile to 101.8. Laboratory data revealed a white blood cell count of 13, 000, BUN/creatinine 18 and 1.1, amylase/lipase normal, liver enzymes normal and coags normal. Urinalysis negative. Chest x-ray revealed mild cardiomegaly with mild prominence of pulmonary vascularity. X-ray of the right tibia and fibula was negative. X-ray of the right ankle revealed moderate soft tissue swelling. He was given a dose of Unasyn and then transferred to [facility] for a CTof the abdomen and pelvis, which apparently revealed cholelithiasis, bilateral nonobstructing renal calculi and a left upper pole density. He was subsequently placed on Cefazolin. He was transiently hypotensive and was given 3 L of fluid in the emergency room. This morning blood cultures 2 were reported positive for gram-positive cocci in chains, and he has been switched to Unasyn. He has remained febrile this morning and continues to complain of chills. He has had no further abdominal discomfort. Allergies/Medications Allergies: Coded Allergies: bacitracin (Severe, HIVES 02/13/17) ceftriaxone (From ROCEPHIN) (Severe, HIVES 02/13/17) doxycycline (Severe, HIVES 02/13/17) erythromycin base (Severe, HIVES 02/13/17) gentamicin (Severe, HIVES 02/13/17) Uncoded Allergies: MEDS WHICH ENDS WITH "BASILIO" (Severe, HIVES 03/02/11) DETERGENTS (RASH 05/31/14) Home Med List: Furosemide 20 MG TABLET 1 TAB PO DAILY fluid overload (Reported) Potassium Chloride (Klor-Con M10) 10 MEQ TAB.ER.PRT 1 TAB PO DAILY supplements (Reported) Testosterone (Depo-Testadiol Inj 2 MG/Ml-50 MG/Ml) 200 MG/ML VIAL 1 ML IM Q3W HRT (Reported) Past History Travel History Traveled to [place] past 21 day No Medical History Blood Transfusion Hx: No Neurological: NONE EENT: NONE Cardiovascular: chronic venous insuff Respiratory: NONE Gastrointestinal: diverticulitis Hepatic: NONE Renal: NONE Musculoskeletal: osteoporosis Psychiatric: NONE Endocrine: NONE Blood Disorders: DVT (right leg) Cancer(s): NONE 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 Home Services at Home: None Smoking Status: Never Smoked ETOH Use: DAILY WINE Functional Ability ADLs Independent: dressing, eating, toileting, bathing. Ambulation: independent IADLs Independent: shopping, housework, finances, food prep, telephone, transportation , medication admin. Review of Systems Review of Systems Respiratory: Reports: no symptoms. GI: Denies: diarrhea, nausea, vomiting. Genitourinary: Reports: no symptoms. All Other Systems: Reviewed and Negative Exam & Diagnostic Data Last 24 Hrs of Vital Signs/I&O Vital Signs Date Time Temp Pulse Resp B/P B/P Pulse O2 O2 Flow FiO2 Mean Ox Delivery Rate / 0748 99.4 / 0747 99.4 92 20 118/70 93 Room Air / 0706 101.0 06/04 0630 101.0 93 18 120/57 93 Room Air / 0524 100/50 06/ 0430 99.5 06/ 0423 99.5 102 20 80/51 91 Room Air / 0326 101.0 110 22 108/66 98 Room Air / 0228 101.1 107 18 131/77 97 Room Air / 0119 101.7 101 131/77 06/04 0042 90/56 02/14 0042 100.1 106 20 80/55 95 Room Air 02/13 2226 100.0 104 20 110/74 96 Room Air 02/14 2124 101.7 02/13 2123 101.7 118 20 125/80 96 Room Air 02/13 2009 101.8 02/13 1947 130 18 168/74 97 02/13 1945 101.8 Intake & Output 02/14 1600 02/14 0800 02/14 0000 Intake Total 2000 1100 Output Total Balance 1999 1100 Intake, IV 2000 1100 Patient 300 lb 300 lb Weight Weight Reported by Patient Measurement Method Physical Exam Other Physical Findings: He is awake and alert in no acute distress. MAXIMUM TEMPERATURE 101.8. Skin reveals no rash. HEENT exam is negative. Neck is supple with no adenopathy. Lungs are clear. Heart regular rhythm with no murmur. Abdomen is obese, soft, tender diffusely on palpation, with no guarding or rebound, positive bowel sounds. Back no CVA tenderness. Extremities chronic venous stasis changes both lower extremities; erythema, warmth and mild tenderness on the left leg; a small ulceration on the medial malleolus; a larger ulceration on the right medial malleolus with no surrounding inflammation; pulses 2+ and equal. Neuro is without focality. Last 24 Hours of Lab Results: Laboratory Tests 02/14 02/14 0450 0450 Chemistry Sodium (137 - 145 mmol/L) 140 Potassium (3.5 - 5.1 mmol/L) 4.1 Chloride (98 - 107 mmol/L) 102 Carbon Dioxide (22 - 30 mmol/L) 28 Anion Gap (5 - 16) 10 BUN (9 - 20 mg/dL) 20 Creatinine (0.7 - 1.2 mg/dL) 1.4 H Estimated GFR (>60 ml/min) 51 L BUN/Creatinine Ratio (7 - 25 %) 14.3 Hemoglobin A1c (4.2 - 5.8 %) Pending Lactic Acid (0.7 - 2.1 mmol/L) 1.7 Hematology CBC w Diff MAN DIFF ORDERED WBC (4.8 - 10.8 /CUMM) 17.7 H RBC (4.70 - 6.10 /CUMM) 4.85 Hgb (14.0 - 18.0 G/DL) 15.4 Hct (42 - 52 %) 46.9 MCV (80.0 - 94.0 FL) 96.8 H MCH (27.0 - 31.0 PG) 31.8 H RDW (11.5 - 14.5 %) 14.9 H Plt Count (130 - 400 /CUMM) 180 MPV (7.4 - 10.4 FL) 9.1 Gran % (42.2 - 75.2 %) 95.4 H Lymphocytes % (20.5 - 51.1 %) 1.6 L Monocytes % (1.7 - 9.3 %) 3.0 Eosinophils % (0 - 5 %) 0 Basophils % (0.0 - 2.0 %) 0 L Absolute Granulocytes (1.4 - 6.5 /CUMM) 16.9 H Segmented Neutrophils (42.2 - 75.2 %) 79 H Band Neutrophils (0.0 - 5.0 %) 17 H Absolute Lymphocytes (1.2 - 3.4 /CUMM) 0.3 L Lymphocytes (20.5 - 51.1 %) 4 L Absolute Monocytes (0.10 - 0.60 /CUMM) 0.5 Absolute Eosinophils (0.0 - 0.7 /CUMM) 0 Absolute Basophils (0.0 - 0.2 /CUMM) 0 Platelet Estimate (ADEQUATE) ADEQUATE Normocytic RBCs VERIFIED Normochromic RBCs VERIFIED PUBS MCHC (33.0 - 37.0 G/DL) 32.9 L 02/13 Chemistry Lactic Acid Cancelled Urines Urine Color (YEL,AMB,STR) YEL Urine Clarity (CLEAR) CLEAR Urine pH (5.0 - 8.0) 8.0 Ur Specific [place] (1.001 - 1.035) 1.015 Urine Protein (NEG,<30 MG/DL) NEG Urine Ketones (NEG) NEG Urine Nitrite (NEG) NEG Urine Bilirubin (NEG) NEG Urine Urobilinogen (0.1 - 1.0 EU/dl) 1.0 Ur Leukocyte Esterase (NEG) NEG Ur Microscopic EXAM NOT REQUIRED Urine Hemoglobin (NEG) NEG Urine Glucose (N MG/DL) NEG 02/13 1950 Chemistry Sodium (137 - 145 mmol/L) 142 Potassium (3.5 - 5.1 mmol/L) 4.3 Chloride (98 - 107 mmol/L) 100 Carbon Dioxide (22 - 30 mmol/L) 30 Anion Gap (5 - 16) 12 BUN (9 - 20 mg/dL) 18 Creatinine (0.7 - 1.2 mg/dL) 1.1 Estimated GFR (>60 ml/min) > 60 BUN/Creatinine Ratio (7 - 25 %) 16.4 Glucose (65 - 99 mg/dL) 115 H Lactic Acid (0.7 - 2.1 mmol/L) 1.5 Calcium (8.4 - 10.2 mg/dL) 9.9 Total Bilirubin (0.2 - 1.3 mg/dL) 0.9 AST (17 - 59 U/L) 28 ALT (21 - 72 U/L) 57 Alkaline Phosphatase (< 127 U/L) 90 Troponin I (<0.11 ng/ml) < 0.01 Total Protein (6.3 - 8.2 g/dL) 8.2 Albumin (3.5 - 5.0 g/dL) 4.9 Globulin (1.9 - 4.2 gm/dL) 3.3 Albumin/Globulin Ratio (1.1 - 2.2 %) 1.5 Amylase (30 - 110 U/L) 54 Lipase (23 - 300 U/L) 184 Coagulation PT (9.4 - 12.5 SEC) 11.3 INR (0.90 - 1.17) 1.08 APTT (25 - 37 SEC) 30 Hematology CBC w Diff NO MAN DIFF REQ WBC (4.8 - 10.8 /CUMM) 13.2 H RBC (4.70 - 6.10 /CUMM) 5.57 Hgb (14.0 - 18.0 G/DL) 17.7 Hct (42 - 52 %) 54.5 H MCV (80.0 - 94.0 FL) 97.8 H MCH (27.0 - 31.0 PG) 31.7 H RDW (11.5 - 14.5 %) 14.8 H Plt Count (130 - 400 /CUMM) 208 MPV (7.4 - 10.4 FL) 8.6 Gran % (42.2 - 75.2 %) 91.2 H Lymphocytes % (20.5 - 51.1 %) 4.5 L Monocytes % (1.7 - 9.3 %) 2.9 Eosinophils % (0 - 5 %) 1.3 Basophils % (0.0 - 2.0 %) 0.1 Absolute Granulocytes (1.4 - 6.5 /CUMM) 12.0 H Absolute Lymphocytes (1.2 - 3.4 /CUMM) 0.6 L Absolute Monocytes (0.10 - 0.60 /CUMM) 0.4 Absolute Eosinophils (0.0 - 0.7 /CUMM) 0.2 Absolute Basophils (0.0 - 0.2 /CUMM) 0 PUBS MCHC (33.0 - 37.0 G/DL) 32.5 L Last 24 Hours of Janes Results: Blood cultures February 13 positive for gram-positive cocci in chains Urine culture February 13 negative Blood cultures February 14 pending Diagnostic Data Recent Imaging Findings: Chest x-ray revealed mild cardiomegaly with mild prominence of pulmonary vascularity. X-ray of the right tibia and fibula negative. X-ray of the right ankle revealed moderate soft tissue swelling Assessment/Plan Assessment/Plan Impression: This is a 66-year-old man with venous insufficiency, status post multiple venous ablations, with a chronic, nonhealing ulcer on the right medial malleolus admitted early this morning after presenting to the emergency room with the acute onset of fevers, chills and abdominal discomfort and several days of bilateral calf pains following the development of a blister on the left medial malleolus, found on admission to be febrile with a leukocytosis and with blood cultures 2 reported positive for gram-positive cocci in chains. He appears to have a cellulitis of the left lower extremity, which is the most likely source of his sepsis. The cellulitis may have developed secondary to the ulceration on the medial malleolus and was facilitated by his underlying venous insufficiency. His abdominal pain and tenderness are of unclear significance. His CT scan of the abdomen and pelvis apparently did not reveal any acute intra-abdominal process, but will need to obtain the copies and report of this CT scan, particularly with the report of a left kidney upper pole density. Suggestion: 1. Obtain the CD and report of the CT scan of the abdomen and pelvis performed at [facility] last night 2. Elevation of the left leg 3. Further evaluation, for example right upper quadrant ultrasound, based on his clinical picture and CT report 4. Follow-up results of the Doppler study apparently done this morning 5. Follow-up results of recent blood cultures 6. Continue Unasyn 3 g IV every 6 hours pending above Consult Acknowledgment - Thank you for your consult request.
--- NOTE | 2017-02-14 13:00 | ULTRASOUND REPORT ---
EXAMINATION: US TRIPLEX OF LOWER EXTREMITIES, BILATERAL CLINICAL INFORMATION: Pain in calves, left greater than right. History of DVT. COMPARISON: Right lower extremity Doppler 04/23/2015. TECHNIQUE: Color-flow triplex imaging with spectral analysis and compression Doppler were performed on the lower extremities. FINDINGS: Respiratory variation and normal compression are noted throughout the lower extremities. The visualized common femoral vein, superficial femoral vein, profunda femoral vein, popliteal vein and visualized calf venous segments show no evidence of deep venous thrombosis. There is no Baron's cyst. IMPRESSION: No evidence of deep venous thrombosis involving the lower extremities.
--- NOTE | 2017-02-14 13:34 | NUR ---
nursing note: oral temp 101.1, pt drousy but arousable. at bedside, pt assisted back to bed, states "im cold and im tired because i didnt sleep well over night." bed alarm placed due to drowsiness, pt in agreement, iv tylenol given x1,will recheck temp in 1 hour. #137 aware.
--- NOTE | 2017-02-14 13:53 | PN- Att Addend ---
Attending Addendum Attending Brief Note 66-year-old male with chronic venous insufficiency status post stenting, nonhealing chronic ulcer on the right medial malleolus, was admitted last night with fever, chills, calf pain and abdominal discomfort. Was found to be in severe sepsis secondary to lower extremity cellulitis. He is growing gram positive cocci in chains in both sets of blood culture. Right lower extremity venous Doppler negative for DVT. Last CT scan of the abdomen and pelvis done at [facility] in April 2015 which showed cholelithiasis, bilateral nonobstructive renal stones. A CAT scan done at [place] last night showed gallstones without cholecystitis, bilateral nonobstructive renal stones, 1.9 upper pole renal hypodensity Currently patient is febrile, c/o GERD and epigastric discomfort. at the bedside. Patient denies any fever, chills, nausea, vomiting, still has some abdominal discomfort. Vital Signs Date Time Temp Pulse Resp B/P B/P Pulse O2 O2 Flow FiO2 Mean Ox Delivery Rate 02/14 1334 101.1 94 20 130/70 94 Room Air 06/04 0748 99.4 06/04 0747 99.4 92 20 118/70 93 Room Air 06/04 0706 101.0 06/04 0630 101.0 93 18 120/57 93 Room Air 06/04 0524 100/50 06/04 0430 99.5 06/04 0423 99.5 102 20 80/51 91 Room Air 06/04 0326 101.0 110 22 108/66 98 Room Air 06/04 0228 101.1 107 18 131/77 97 Room Air 06/04 0119 101.7 101 131/77 06/04 0042 90/56 06/04 0042 100.1 106 20 80/55 95 Room Air 06/03 2226 100.0 104 20 110/74 96 Room Air 06/03 2124 101.7 06/03 2123 101.7 118 20 125/80 96 Room Air 06/03 2008 101.8 06/03 1947 130 18 168/74 97 06/03 1945 101.8 Intake & Output /04 1600 / 0800 06/04 0000 Intake Total 2000 1100 Output Total Balance 1999 1100 Intake, IV 2000 1100 Patient 300 lb 300 lb Weight Weight Reported by Patient Measurement Method Physical exam Alert, awake, oriented 3, not in any distress Lungs-clear, no wheeze or rales Heart-S1-S2 heard normal, no murmur Abdomen- Generalized tenderness, more in the epigastric region Extremities-b/l LE edema, Chronic venous statis, erythematous Lt LE, ulcer on the Lt and Rt Medial melleolus Laboratory Tests 02/14 02/14 0450 0450 Chemistry Sodium (137 - 145 mmol/L) 140 Potassium (3.5 - 5.1 mmol/L) 4.1 Chloride (98 - 107 mmol/L) 102 Carbon Dioxide (22 - 30 mmol/L) 28 Anion Gap (5 - 16) 10 BUN (9 - 20 mg/dL) 20 Creatinine (0.7 - 1.2 mg/dL) 1.4 H Estimated GFR (>60 ml/min) 51 L BUN/Creatinine Ratio (7 - 25 %) 14.3 Hemoglobin A1c (4.2 - 5.8 %) Pending Lactic Acid (0.7 - 2.1 mmol/L) 1.7 Hematology CBC w Diff MAN DIFF ORDERED WBC (4.8 - 10.8 /CUMM) 17.7 H RBC (4.70 - 6.10 /CUMM) 4.85 Hgb (14.0 - 18.0 G/DL) 15.4 Hct (42 - 52 %) 46.9 MCV (80.0 - 94.0 FL) 96.8 H MCH (27.0 - 31.0 PG) 31.8 H RDW (11.5 - 14.5 %) 14.9 H Plt Count (130 - 400 /CUMM) 180 MPV (7.4 - 10.4 FL) 9.1 Gran % (42.2 - 75.2 %) 95.4 H Lymphocytes % (20.5 - 51.1 %) 1.6 L Monocytes % (1.7 - 9.3 %) 3.0 Eosinophils % (0 - 5 %) 0 Basophils % (0.0 - 2.0 %) 0 L Absolute Granulocytes (1.4 - 6.5 /CUMM) 16.9 H Segmented Neutrophils (42.2 - 75.2 %) 79 H Band Neutrophils (0.0 - 5.0 %) 17 H Absolute Lymphocytes (1.2 - 3.4 /CUMM) 0.3 L Lymphocytes (20.5 - 51.1 %) 4 L Absolute Monocytes (0.10 - 0.60 /CUMM) 0.5 Absolute Eosinophils (0.0 - 0.7 /CUMM) 0 Absolute Basophils (0.0 - 0.2 /CUMM) 0 Platelet Estimate (ADEQUATE) ADEQUATE Normocytic RBCs VERIFIED Normochromic RBCs VERIFIED PUBS MCHC (33.0 - 37.0 G/DL) 32.9 L 02/13 Chemistry Lactic Acid Cancelled Urines Urine Color (YEL,AMB,STR) YEL Urine Clarity (CLEAR) CLEAR Urine pH (5.0 - 8.0) 8.0 Ur Specific [place] (1.001 - 1.035) 1.015 Urine Protein (NEG,<30 MG/DL) NEG Urine Ketones (NEG) NEG Urine Nitrite (NEG) NEG Urine Bilirubin (NEG) NEG Urine Urobilinogen (0.1 - 1.0 EU/dl) 1.0 Ur Leukocyte Esterase (NEG) NEG Ur Microscopic EXAM NOT REQUIRED Urine Hemoglobin (NEG) NEG Urine Glucose (N MG/DL) NEG 02/13 1950 Chemistry Sodium (137 - 145 mmol/L) 142 Potassium (3.5 - 5.1 mmol/L) 4.3 Chloride (98 - 107 mmol/L) 100 Carbon Dioxide (22 - 30 mmol/L) 30 Anion Gap (5 - 16) 12 BUN (9 - 20 mg/dL) 18 Creatinine (0.7 - 1.2 mg/dL) 1.1 Estimated GFR (>60 ml/min) > 60 BUN/Creatinine Ratio (7 - 25 %) 16.4 Glucose (65 - 99 mg/dL) 115 H Lactic Acid (0.7 - 2.1 mmol/L) 1.5 Calcium (8.4 - 10.2 mg/dL) 9.9 Total Bilirubin (0.2 - 1.3 mg/dL) 0.9 AST (17 - 59 U/L) 28 ALT (21 - 72 U/L) 57 Alkaline Phosphatase (< 127 U/L) 90 Troponin I (<0.11 ng/ml) < 0.01 Total Protein (6.3 - 8.2 g/dL) 8.2 Albumin (3.5 - 5.0 g/dL) 4.9 Globulin (1.9 - 4.2 gm/dL) 3.3 Albumin/Globulin Ratio (1.1 - 2.2 %) 1.5 Amylase (30 - 110 U/L) 54 Lipase (23 - 300 U/L) 184 Coagulation PT (9.4 - 12.5 SEC) 11.3 INR (0.90 - 1.17) 1.08 APTT (25 - 37 SEC) 30 Hematology CBC w Diff NO MAN DIFF REQ WBC (4.8 - 10.8 /CUMM) 13.2 H RBC (4.70 - 6.10 /CUMM) 5.57 Hgb (14.0 - 18.0 G/DL) 17.7 Hct (42 - 52 %) 54.5 H MCV (80.0 - 94.0 FL) 97.8 H MCH (27.0 - 31.0 PG) 31.7 H RDW (11.5 - 14.5 %) 14.8 H Plt Count (130 - 400 /CUMM) 208 MPV (7.4 - 10.4 FL) 8.6 Gran % (42.2 - 75.2 %) 91.2 H Lymphocytes % (20.5 - 51.1 %) 4.5 L Monocytes % (1.7 - 9.3 %) 2.9 Eosinophils % (0 - 5 %) 1.3 Basophils % (0.0 - 2.0 %) 0.1 Absolute Granulocytes (1.4 - 6.5 /CUMM) 12.0 H Absolute Lymphocytes (1.2 - 3.4 /CUMM) 0.6 L Absolute Monocytes (0.10 - 0.60 /CUMM) 0.4 Absolute Eosinophils (0.0 - 0.7 /CUMM) 0.2 Absolute Basophils (0.0 - 0.2 /CUMM) 0 PUBS MCHC (33.0 - 37.0 G/DL) 32.5 L Recommendations: 1. Continue IV Unasyn, follow blood culture results. Appreciate ID input. 2. Check USG RUQ if pain continues inspite of being on PPI. Continue PPI, patient's abdominal pain could be bcz of GERD, ?PUD. May need GI evalv and endoscopy in future, when more stable. 3. Continue IV fluids 4. Encourage leg elevation
--- NOTE | 2017-02-14 14:49 | RADIOLOGY REPORT ---
EXAMINATION: XR FOOT, LEFT CLINICAL INFORMATION: Ulcer, Erythema, Cellulitis, necrotizing fascitis. COMPARISON: None TECHNIQUE: AP, lateral, and oblique views of the left foot. FINDINGS: Presence of overlying dressing decreases the sensitivity of this exam. No acute fracture. No periosteal reaction. No lytic or sclerotic richie lesion. Plantar and dorsal calcaneal spurs are present. There is soft tissue swelling in the forefoot and midfoot. No definite soft tissue air seen. IMPRESSION: Limited exam. Mild diffuse soft tissue swelling of the left foot without definite evidence of soft tissue air or periosteal reaction.
--- NOTE | 2017-02-14 19:52 | NUR ---
1900 PATIENT HAS A TEMP OF 102.4. FILE CLERK AWARE. OFIRMEV GIVEN. OTHER VSS. DENIES CHEST PAIN. + PULSES. DENIES NUMBNESS/TINGLING REDNESS TO LLE. BLE ELEVATED. NO DISTRESS NOTED. WILL CONTINUE TO MONITOR
[2017-02-15 06:57] VITALS: BP 120/80
[2017-02-15] MEDS ORDERED: TESTOSTERO200 MG/1 M IM (07:39)
--- NOTE | 2017-02-15 07:41 | NUR ---
NURSING NOTE: LATE ENTRY. AROUND 0300 AM PT C/O OF L CALF PAIN WHICH HE STATES IS NEW. PT HAD AN ULTRASOUND OF THE RLE YESTERDAY 02/14/17 WHICH WAS NEGATIVE FOR DVT. PTS LLE RED, SWOLLEN, AND PAINFUL, WARM TO TOUCH. CAITY ESCOBEDO 172 MADE AWARE AND STATES PT ALREADY HAD AN ULTRASOUND OF THE LLE. WILL CONTINUE TO MONITOR.
--- NOTE | 2017-02-15 08:06 | PN- Housestaff ---
EAMON OLIVEIRA 02/15/17 0806: Subjective Follow-up For: Left lower extremity cellulitis Complaints: pain scale (0-10) Subjective: Patient was seen and examined this morning. He is alert awake and oriented to time place and person. He spiked a temperature max 102.4 last night. Reports 10 out of 10 pain left lower extremity associated with redness, swelling , warmth. Also reports worsening left lower extremity cellulitis. Denies any abdominal pain, nausea, vomiting, change in bladder or bowel habits. Vitals afebrile this morning, heart rate 80, respiratory rate 20, blood pressure 120/80, saturating at 91 on room air Review of Systems Constitutional: Reports: chills. Denies: diaphoresis, fever, malaise, weakness. Objective Last 24 Hrs of Vital Signs/I&O Vital Signs Date Time Temp Pulse Resp B/P B/P Pulse O2 O2 Flow FiO2 Mean Ox Delivery Rate 02/15 1406 99.5 80 18 126/86 95 Room Air 02/15 0813 99.2 02/15 0657 99.6 80 20 120/80 91 Room Air 02/14 2325 99.1 02/14 2227 87.0 87 20 118/58 92 Room Air 02/14 2008 99.7 02/14 2000 99.7 02/14 1909 102.4 02/14 1900 102.4 02/14 1600 99.0 02/14 1600 Room Air Intake & Output 02/15 1600 02/15 0800 02/15 0000 Intake Total 850 1040 350 Output Total 800 600 350 Balance 50 440 0 Intake, IV 150 800 Intake, Oral 700 240 350 Output, Urine 800 600 350 Physical Exam General Appearance: Alert, Oriented X3, Cooperative, No Acute Distress HEENT: Atraumatic, PERRLA, EOMI Neck: Supple, No JVD Lymphatic: Axillary nl, Cervical nl Cardiovascular: Normal S1, Normal S2 Lungs: Normal Air Movement Abdomen: Normal Bowel Sounds, Soft, No Tenderness Extremities: No Clubbing, No Cyanosis, left lower extremity right, swollen, tender right lower extremity right medial malleolus ulcer medial malleolus ulcer Vascular: Normal Pulses, Pulses Symmetrical Current Medications: Current Medications Sig/Phillip Start time Last Medication Dose Route Stop Time Status Admin Acetaminophen 650 MG Q6P PRN 02/14 0245 AC PO Acetaminophen 1,000 MG Q6 PRN 02/14 0245 AC 06/04 IV 1909 Acetaminophen/ 1 TAB Q4P PRN 02/14 0800 AC 02/15 Hydrocodone Bitart PO 1357 Ampicillin Sodium/ 3,000 MG Q6H 02/14 0739 AC 02/15 Sulbactam Sodium IV 1357 Sodium Chloride 100 ML Heparin Sodium 5,000 UNIT Q8 02/14 0600 AC 02/15 (Porcine) SC 1357 Hydromorphone HCl 2 MG ONCE ONE 02/15 1115 DC 02/15 PO 02/15 1116 1116 Omeprazole 40 MG DAILY AC 02/15 1110 AC PO Pantoprazole Sodium 40 MG DAILY 02/14 1000 DC 02/15 IV 0808 Patient Medication 1 ED .STK-MED ONE 02/15 1408 ID Teaching ED 02/15 1409 Sodium Chloride 1,000 ML Q13H 02/14 0245 DC 02/14 IV 02/15 0144 2224 Last 24 Hrs of Lab/Janes Results Last 24 Hrs of Labs/Mics: Laboratory Tests 02/15/17 0718: CBC w Diff MAN DIFF ORDERED, RBC 4.78, MCV 98.1 H, MCH 32.1 H, RDW 15.1 H, MPV 9.5, Gran % 89.4 H, Lymphocytes % 5.4 L, Monocytes % 5.1, Eosinophils % 0.1, Basophils % 0 L, Absolute Granulocytes 12.4 H, Segmented Neutrophils 84 H, Band Neutrophils 7 H, Absolute Lymphocytes 0.8 L, Lymphocytes 5 L, Monocytes 4, Absolute Monocytes 0.7 H, Absolute Eosinophils 0, Absolute Basophils 0, Platelet Estimate ADEQUATE, Normocytic RBCs VERIFIED, Normochromic RBCs VERIFIED, PUBS MCHC 32.7 L 02/15/17 0620: Anion Gap 10, Estimated GFR > 60, BUN/Creatinine Ratio 15.0 Assessment/Plan Assessment: 66-year-old male with a past medical history of DVT (February 2015) currentky not on AC, chronic venous stasis ulcers, history of venous insufficiency, status post multiple ablations and skin grafts, with a 30 year history of a nonhealing right medial malleolar ulcer, hypertension and obesity, osteopenia on testosterone depot injections, s/p vascular stent of RLE s/p venous ablation (F/U with Dr. Manuel) presented to the ED with chief complaints of shaking chills and fever. Vitals at the time of admission blood pressure 110/74, respiratory rate of 20, tachycardic to 118, MAXIMUM TEMPERATURE of 101.8F saturating 96% on room air. Labs pertinent for leukocytosis with a white blood cell count of 13,200 with a left shift, H&H of 17.7/54.5, MCV elevated to 97.8 with a platelet count 208, 000. Serum chemistries pertinent for sodium 142, potassium of 4.3, bicarbonate of 30, anion gap of 12, BUN 18 with a creatinine of 1.1. Serum glucose elevated to 115. Lactic acid 1.5. LFTs unremarkable with an AST/ALD of 20/57, alkaline phosphatase of 90, troponin I less than 0.01. Serum amylase of 54, lipase of 184. INR 1.08 UA unremarkable. Chest x-ray revealed cardiomegaly with mild prominence pulmonary vascular and lymphatic suspicious for mild congestion. Xray of right tibia and fibula was unremarkable with soft tissue calcification and moderate Glenohumeral and small retrocalcaneal spur. Lower extremity Doppler ruled out DVT In the ER he received normal saline bolus thousand pulse 1, Protonix 40 mg IV 1, Toradol 30 mg IV 1, Unasyn 3000 mg IV 1 and Tylenol thousand milligrams IV EKG revealed sinus tachycardia, with HR: 132, normal axis, no ST-T changes. CT Abdomen/Pelvis revealed gall staones with - cholecystitis, b/l non- opbstructing renal stoens, left inguinal node ? lymphadenitis, a R 1.9cm upper pole renal hypodensity ? renal mass, no acute obstruction, small hiatal hernia. Severe sepsis 2/2 left lower extremity cellulitis with chronic venous stasis and chronic nonhealing ulcer to right foot. Patient presented with worsening pain, redness, swelling left lower extremity associated with chronic nonhealing ulcer -concerning for cellulitis. He is febrile on admission with a tachycardia. Source of infection must be left lower extremity. Blood pressure dropped to 80/55 requiring IV fluids. Leukocyte count elevated 13,000 on admission. * Admitted to general medicine floor for further management of severe sepsis requiring IV fluids and cellulitis. * Monitor vitals closely * Monitor closely for blood pressure changes * Monitor for fever, leukocytosis, worsening pain swelling and redness of left lower extremity * Urine was clear, will follow up urine cultures * CAT scan abdomen revealed gallstones, biliary colic -however LFTs were normal * Patient complaint flank pain however CAT scan abdomen showed nonobstructing renal stones * Started him on Ceftaz 1000mg Q8 for cellulitis * However ceftaz was discontinued and started on Unasyn as his blood cultures showed gram-positive cocci in chains- beta strep * Unasyn day2 3gm q6 * Lactic acid improved after IV hydration * F/U blood cultures x2 and urine cultures. * Will hold Lasix 20mg daily for now, given low blood pressures. GERD, epigastric discomfort Patient complain Severe heartburn associated with epigastric discomfort. CAT scan abdomen revealed gallstones with cholecystitis. * Patient is febrile with a leukocyte count 17,000 on admission * CAT scan suggestive of cholelithiasis * May need GI evalv in future, when more stable. * Continue IV fluids * He remained afebrile with leukocyte count 13,000, trending down * Closely monitor for now Renal mass? CAT scan abdomen showed 1.9 cm upper pole renal hypodensity ? renal mass, no acute obstruction, * Needs outpatient follow up #Elevated blood glucose - His HbA1c in November was impaired 6.2 - F/U Hba1C 5.8 #Pain in LE's with b/l swelling and chronic venous stasis changes. * he followed up with Dr. Manuel on Wednesday, and was told that everything looked normal. Of note, patient has had multiple skin grafts placed, the last one being about a year ago. * Status post vascular stents right lower extremity * US Doppler of LE ruled out DVT * Holding Lasix for now given sepsis with soft blood pressures. * Needs outpatient follow-up with Dr. manuel after discharge Osteopenia osteopenia on testosterone depot injections, History of deep vein thrombosis Previous history of deep vein thrombosis on Xarelto Not on any anticoagulants now - DVT Prophylaxis - Heaprin 5000 TID SC - Code Status - Full Code Regular diet Problem List: 1. Cellulitis of left lower extremity Pain Ratin Pain Location: left Lower extremity Pain Goal: Remain pain free Pain Plan: Tramadol Tylenol Tomorrow's Labs & Rationales: CBC in the setting of infection BALJIT ARMSTRONG MD 02/15/17 1259: Attending MD Review Statement Attending Statement Attending MD Statement: examined this patient, discuss w/resident/PA/ANIMAL CONTROL OFFICER, agreed w/resident/PA/ANIMAL CONTROL OFFICER, discussed with family, reviewed EMR data (avail), discussed with nursing, discussed with case mgmt, reviewed images, amended to note Attending Assessment/Plan: Patient seen and examined, not feeling better. The lle is still very erythematous. LE doppler US neg for DVT. Vital Signs Date Time Temp Pulse Resp B/P B/P Pulse O2 O2 Flow FiO2 Mean Ox Delivery Rate 02/15 08 99.2 02/15 0657 99.6 80 20 120/80 91 Room Air / 2325 99.1 / 2227 87.0 87 20 118/58 92 Room Air 02/15 2008 99.7 02/14 2000 99.7 / 1909 102.4 / 1900 102.4 / 1600 99.0 / 1600 Room Air / 1431 100.0 06/ 1431 100.0 / 1334 101.1 / 1334 101.1 94 20 130/70 94 Room Air on exam; aox3, nad. cv; s1,s2, rrr resp; clear abd: soft, nt, bs+ ext; lle erythematous + tenderness, + swelling. Laboratory Tests 02/15 02/15 02/14 0718 0620 1435 Chemistry Sodium (137 - 145 mmol/L) 137 138 Potassium (3.5 - 5.1 mmol/L) 3.6 3.9 Chloride (98 - 107 mmol/L) 104 104 Carbon Dioxide (22 - 30 mmol/L) 23 24 Anion Gap (5 - 16) 10 10 BUN (9 - 20 mg/dL) 15 22 H Creatinine (0.7 - 1.2 mg/dL) 1.0 1.2 Estimated GFR (>60 ml/min) > 60 > 60 BUN/Creatinine Ratio (7 - 25 %) 15.0 18.3 Hematology CBC w Diff MAN DIFF ORDERED WBC (4.8 - 10.8 /CUMM) 13.9 H RBC (4.70 - 6.10 /CUMM) 4.78 Hgb (14.0 - 18.0 G/DL) 15.4 Hct (42 - 52 %) 46.9 MCV (80.0 - 94.0 FL) 98.1 H MCH (27.0 - 31.0 PG) 32.1 H RDW (11.5 - 14.5 %) 15.1 H Plt Count (130 - 400 /CUMM) 146 MPV (7.4 - 10.4 FL) 9.5 Gran % (42.2 - 75.2 %) 89.4 H Lymphocytes % (20.5 - 51.1 %) 5.4 L Monocytes % (1.7 - 9.3 %) 5.1 Eosinophils % (0 - 5 %) 0.1 Basophils % (0.0 - 2.0 %) 0 L Absolute Granulocytes (1.4 - 6.5 /CUMM) 12.4 H Segmented Neutrophils (42.2 - 75.2 %) 84 H Band Neutrophils (0.0 - 5.0 %) 7 H Absolute Lymphocytes (1.2 - 3.4 /CUMM) 0.8 L Lymphocytes (20.5 - 51.1 %) 5 L Monocytes (1.7 - 9.3 %) 4 Absolute Monocytes (0.10 - 0.60 /CUMM) 0.7 H Absolute Eosinophils (0.0 - 0.7 /CUMM) 0 Absolute Basophils (0.0 - 0.2 /CUMM) 0 Platelet Estimate (ADEQUATE) ADEQUATE Normocytic RBCs VERIFIED Normochromic RBCs VERIFIED PUBS MCHC (33.0 - 37.0 G/DL) 32.7 L A/P: 66-year-old male with chronic venous insufficiency status post stenting, nonhealing chronic ulcer on the right medial malleolus, is admitted with sepsis 2/2 to e cellulitis. Patient is bacteremic with the beta strep group G. Currently he is on Unasyn. Reportedly his CAT scan from [facility] did not show any significant abnormality but we are waiting further reports to be faxed over. We will discuss with infectious disease about antibiotic coverage. DVT prophylaxis: hep sq.
[2017-02-15 08:12] LABS: ABSOLUTE BASOPHIL COUNT 0 /CUMM (0.0-0.2); ABSOLUTE EOSINOPHIL COUNT 0 /CUMM (0.0-0.7); ABSOLUTE GRANULOCYTE CT 12.4 /CUMM (1.4-6.5); ABSOLUTE LYMPH COUNT 0.8 /CUMM (1.2-3.4); ABSOLUTE MONOCYTE COUNT 0.7 /CUMM (0.10-0.60); BASOPHIL % 0 % (0.0-2.0); EOSINOPHIL % 0.1 % (0-5); GRANULOCYTE % 89.4 % (42.2-75.2); HEMATOCRIT 46.9 % (42-52); MEAN CORPUSCULAR HGB 32.1 PG (27.0-31.0); MEAN CORPUSCULAR HGB CONC 32.7 G/DL (33.0-37.0); MEAN CORPUSCULAR VOLUME 98.1 FL (80.0-94.0); MEAN PLATELET VOLUME 9.5 FL (7.4-10.4); PLATELET COUNT 146 /CUMM (130-400); RBC DISTRIBUTION WIDTH 15.1 % (11.5-14.5); RED BLOOD CELL CT 4.78 /CUMM (4.70-6.10); WHITE BLOOD CELL COUNT 13.9 /CUMM (4.8-10.8)
--- NOTE | 2017-02-15 14:04 | PN- Student ---
Subjective Subjective: This morning Mr. Silverman reports 10/10 pain in his left calf up to his knee, no abdominal pain, and says that his right leg feels better than yesterday with a 0 /10 pain scale. He believes that his left leg has gotten worse since admission and his abdomen and right leg have improved. He reports that he is sleeping well as of now and that he has no problems urinating. He denies any chest pain, palpitations, headache, fever or chills. He also denies problems breathing or or having any pain in his abdomen. He does however report that he has no appetite. Objective Objective: Vital Signs Date Time Temp Pulse Resp B/P B/P Pulse O2 O2 Flow FiO2 Mean Ox Delivery Rate 02/15 08 99.2 02/15 0657 99.6 80 20 120/80 91 Room Air 02/14 2325 99.1 02/14 2227 87.0 87 20 118/58 92 Room Air 02/15 2008 99.7 02/15 2000 99.7 02/14 1909 102.4 02/14 1900 102.4 02/14 1600 99.0 02/14 1600 Room Air 02/14 1431 100.0 02/14 1431 100.0 Intake & Output 02/15 1600 02/15 0800 06/ 0000 Intake Total 1040 350 Output Total 600 350 Balance 440 0 Intake, IV 800 Intake, Oral 240 350 Output, Urine 600 350 Diagnostics on admission: CT from [facility]- cholelithiasis with no cholecysitis, bilateral non obstructing renal calculi, 1.9cm focal low attenuated area with internal heterogeneous density within left kidney upper lobe, further evaluation with CT/ MRI renal mass protocol is recommended to rule out renal neoplasm. Enlarged left inguinal lymph node with surrounding fat infiltration, suspicious for infective lymphadenitis, small hiatal hernia. UA- unremarkable CXR- cardiomegaly, mild pulmonary vascular and lymphatic prominence possibly due to mild congestion. X-Ray of Tib/Fib- soft tissue calcification and retrocalcaneal spur Venous doppler- negative for DVT PE: General- mildly distressed well nourished man, AAO x 3, cooperative. HEENT- atruamatic, PERRLA, membranes moist and pink Neck- supple, no lymphadenopathy or thyromegaly, trachea is midline CV- S1 and S2 heard, regular rate and rhythm, no murmurs or rubs auscultated Chest- equal rise bilaterally, vesicular sounds heard throughout, no distress Abd- not distended, bowel sounds heard, soft and non tender to palpation Skin- erythematous swelling noted on left leg from foot to knee, outlined with marker for progress assessment. 3cm x 3 cm wound noted on left foot that was bandaged and not weeping. Right leg was not erythematous or swollen. 1cm x 1 cm wound bandaged on right medial foot that was weeping serous fluid. Ext- 5/5 strength x 4 extremities, motor and sensation grossly intact. Results Results: Laboratory Tests 02/15/17 0718: CBC w Diff MAN DIFF ORDERED, RBC 4.78, MCV 98.1 H, MCH 32.1 H, RDW 15.1 H, MPV 9.5, Gran % 89.4 H, Lymphocytes % 5.4 L, Monocytes % 5.1, Eosinophils % 0.1, Basophils % 0 L, Absolute Granulocytes 12.4 H, Segmented Neutrophils 84 H, Band Neutrophils 7 H, Absolute Lymphocytes 0.8 L, Lymphocytes 5 L, Monocytes 4, Absolute Monocytes 0.7 H, Absolute Eosinophils 0, Absolute Basophils 0, Platelet Estimate ADEQUATE, Normocytic RBCs VERIFIED, Normochromic RBCs VERIFIED, PUBS MCHC 32.7 L 02/15/17 0620: Anion Gap 10, Estimated GFR > 60, BUN/Creatinine Ratio 15.0 02/14/17 1435: Anion Gap 10, Estimated GFR > 60, BUN/Creatinine Ratio 18.3 02/14/17 0450: Lactic Acid 1.7 02/14/17 0450: Anion Gap 10, Estimated GFR 51 L, BUN/Creatinine Ratio 14.3, Hemoglobin A1c 5.8 , CBC w Diff MAN DIFF ORDERED, RBC 4.85, MCV 96.8 H, MCH 31.8 H, RDW 14.9 H, MPV 9.1, Gran % 95.4 H, Lymphocytes % 1.6 L, Monocytes % 3.0, Eosinophils % 0, Basophils % 0 L, Absolute Granulocytes 16.9 H, Segmented Neutrophils 79 H, Band Neutrophils 17 H, Absolute Lymphocytes 0.3 L, Lymphocytes 4 L, Absolute Monocytes 0.5, Absolute Eosinophils 0, Absolute Basophils 0, Platelet Estimate ADEQUATE, Normocytic RBCs VERIFIED, Normochromic RBCs VERIFIED, PUBS MCHC 32.9 L 06/03/17 2030: Urine Color YEL, Urine Clarity CLEAR, Urine pH 8.0, Ur Specific [place] 1.015, Urine Protein NEG, Urine Ketones NEG, Urine Nitrite NEG, Urine Bilirubin NEG, Urine Urobilinogen 1.0, Ur Leukocyte Esterase NEG, Ur Microscopic EXAM NOT REQUIRED, Urine Hemoglobin NEG, Urine Glucose NEG 02/13/171949: Lactic Acid Cancelled 02/13/171949: Anion Gap 12, Estimated GFR > 60, BUN/Creatinine Ratio 16.4, Glucose 115 H, Lactic Acid 1.5, Calcium 9.9, Total Bilirubin 0.9, AST 28, ALT 57, Alkaline Phosphatase 90, Troponin I < 0.01, Total Protein 8.2, Albumin 4.9, Globulin 3.3, Albumin/Globulin Ratio 1.5, Amylase 54, Lipase 184, PT 11.3, INR 1.08, APTT 30, CBC w Diff NO MAN DIFF REQ, RBC 5.57, MCV 97.8 H, MCH 31.7 H, RDW 14.8 H, MPV 8.6, Gran % 91.2 H, Lymphocytes % 4.5 L, Monocytes % 2.9, Eosinophils % 1.3, Basophils % 0.1, Absolute Granulocytes 12.0 H, Absolute Lymphocytes 0.6 L, Absolute Monocytes 0.4, Absolute Eosinophils 0.2, Absolute Basophils 0, PUBS MCHC 32.5 L Microbiology 02/14 0835 BLOOD: Blood Culture - RES 02/14 08 BLOOD: Blood Culture - RES 02/13 2030 URINE ROUT: Urine Culture - COMP 02/13 1955 BLOOD: Blood Culture - COMP BETA STREP GROUP G 02/13 1950 BLOOD: Blood Culture - COMP BETA STREP GROUP G Assessment/Plan Assessment: Mr. Silverman is a 66 yo white male with a PMH of HTN, chronic venous stasis w/ ulcers (s/p multiple skin grafts), Lower extremity DVT (was on xarelto), osteopenia (testosterone depot injections), and obesity. He has also had vascular stent in right lower extremity and venous ablation in the past. He presented to the ED on 02/13/2017 with shaking chills, abdominal pain, and bilateral lower extremity pain for 2 days duration. Also had sores on both medial feet, 1cm x 1cm on the right foot and 3cm x 3cm on left foot, as well as erythema of the left leg from ankle to toe. On admission his vitals were: temp- 101.8, HR- 118, RR- 20, BP- 110/74, SpO2- 96% on room air. Labs significant for: WBC- 13.2 with left shift, H/H- 17.7/54.5, MCV- 99.8, Lactic acid- 1.5, anion gap- 12, amylase-54, lipase- 184, INR- 1.08, BUN- 18, Adult Care Manager- 1.1 -patient was treated in ED with saline bolus, protonix 40mg IV, toradol 30 mg IV , Unasyn 3000mg IV and tylenol 1000mg IV -blood cultures grew gram-positive cocci in chains- beta strep on admission but repeat cultures show now growth after one day. -Abdominal CT:cholelithiasis with no cholecysitis, bilateral non obstructing renal calculi, 1.9cm focal low attenuated area with internal heterogeneous density within left kidney upper lobe, further evaluation with CT/MRI renal mass protocol is recommended to rule out renal neoplasm. Enlarged left inguinal lymph node with surrounding fat infiltration, suspicious for infective lymphadenitis, small hiatal hernia. Yesterday he spiked fever of 102 and today his left leg feels worse with swelling and 10/10 pain. He states that his abdominal pain and right leg pain is gone although he still does not have an appetite. Venous doppler was negative for DVT. As of now his presentation is consistent for cellulitis. Patient may have bacteremia although latest cultures show no growth after one day. Vitals today: temp- 99.2, HR- 80, RR- 20, BP- 120/80, SpO2- 91% on room air. Labs today : WBC- 13.9, H/H- 15.4/46.9, Bun- 15, Adult Care Manager- 1.0 Current Medications Sig/Phillip Start time Last Medication Dose Route Stop Time Status Admin Acetaminophen 650 MG Q6P PRN 02/14 0245 AC PO Acetaminophen 1,000 MG Q6 PRN 02/14 0245 AC 02/14 IV 1909 Acetaminophen/ 1 TAB Q4P PRN 02/14 0800 AC 02/15 Hydrocodone Bitart PO 1357 Ampicillin Sodium/ 3,000 MG Q6H 02/14 0739 AC 02/15 Sulbactam Sodium IV 1357 Sodium Chloride 100 ML Furosemide 20 MG DAILY 02/15 1502 AC PO Heparin Sodium 5,000 UNIT Q8 02/14 0600 AC 02/15 (Porcine) SC 1357 Hydromorphone HCl 2 MG ONCE ONE 02/15 1115 DC 02/15 PO 02/15 1116 1116 Omeprazole 40 MG DAILY AC 02/15 1110 AC PO Pantoprazole Sodium 40 MG DAILY 02/14 1000 DC 02/15 IV 0808 Patient Medication 1 ED .STK-MED ONE 02/15 1408 TN Teaching ED 02/15 1409 Sodium Chloride 1,000 ML Q13H 02/14 0245 DC 02/14 IV 02/15 0144 2224 Plan: ID and vascular surgery have both seen patient. Will continue to follow there recommendations. Will continue to manage patients pain, vitals, and labs. Recommendations will be listed below. Problem List: 1. Cellulitis of left lower extremity- -continue to treat pain with tylenol -continue unyson (day 2) as per ID- blood cultures showed gram-positive cocci in chains- beta hemolytic strep (may add lactobacillus) -monitor labs and marked border for improvement 2. Sepsis with leukocytosis- -continue to monitor vitals and labs -follow ID note -tylenol for fever -continue IV fluid therapy 3. Chronis venous stasis w/ ulcers- -doppler negative for DVT -continue wound protocol for ulcers -continue antibiotics as above 4. Abdominal pain- -continue treatment with omeprazole -pain has resolved for now -CT showed cholelithiasis, and 1.9 cm mass on left kidney upper lobe (will need outpatient follow up), and small hiatal hernia. 5. HTN- -will start back on lasix home dose and monitor BP. Diet- normal Code Status- Full DVT prophylaxis- SQ heparin
[2017-02-15 14:06] VITALS: BP 126/86
--- NOTE | 2017-02-15 16:54 | PN- Infect Dx ---
Subjective Subjective: MAXIMUM TEMPERATURE 102.4. He complains of continued pain in the left leg Objective Last 24 Hrs of Vital Signs/I&O Vital Signs Date Time Temp Pulse Resp B/P B/P Pulse O2 O2 Flow FiO2 Mean Ox Delivery Rate 02/15 1406 99.5 80 18 126/86 95 Room Air 02/15 0813 99.2 02/15 0657 99.6 80 20 120/80 91 Room Air 02/14 2325 99.1 02/14 2227 87.0 87 20 118/58 92 Room Air 02/15 2008 99.7 02/15 2000 99.7 02/14 1909 102.4 02/14 1900 102.4 Intake & Output 02/15 1600 02/15 0800 02/15 0000 Intake Total 850 1040 350 Output Total 800 600 350 Balance 50 440 0 Intake, IV 150 800 Intake, Oral 700 240 350 Output, Urine 800 600 350 Physical Exam Other Physical Findings: He appears mildly uncomfortable but in no acute distress Lungs are clear Heart regular rhythm with no murmur Extremities persistent erythema of the left leg, mildly tender to palpation with 1+ edema; small ulceration on the medial malleolus of the left ankle Results Last 24 Hours of Lab Results: Laboratory Tests 02/15 02/15 0718 0620 Chemistry Sodium (137 - 145 mmol/L) 137 Potassium (3.5 - 5.1 mmol/L) 3.6 Chloride (98 - 107 mmol/L) 104 Carbon Dioxide (22 - 30 mmol/L) 23 Anion Gap (5 - 16) 10 BUN (9 - 20 mg/dL) 15 Creatinine (0.7 - 1.2 mg/dL) 1.0 Estimated GFR (>60 ml/min) > 60 BUN/Creatinine Ratio (7 - 25 %) 15.0 Hematology CBC w Diff MAN DIFF ORDERED WBC (4.8 - 10.8 /CUMM) 13.9 H RBC (4.70 - 6.10 /CUMM) 4.78 Hgb (14.0 - 18.0 G/DL) 15.4 Hct (42 - 52 %) 46.9 MCV (80.0 - 94.0 FL) 98.1 H MCH (27.0 - 31.0 PG) 32.1 H RDW (11.5 - 14.5 %) 15.1 H Plt Count (130 - 400 /CUMM) 146 MPV (7.4 - 10.4 FL) 9.5 Gran % (42.2 - 75.2 %) 89.4 H Lymphocytes % (20.5 - 51.1 %) 5.4 L Monocytes % (1.7 - 9.3 %) 5.1 Eosinophils % (0 - 5 %) 0.1 Basophils % (0.0 - 2.0 %) 0 L Absolute Granulocytes (1.4 - 6.5 /CUMM) 12.4 H Segmented Neutrophils (42.2 - 75.2 %) 84 H Band Neutrophils (0.0 - 5.0 %) 7 H Absolute Lymphocytes (1.2 - 3.4 /CUMM) 0.8 L Lymphocytes (20.5 - 51.1 %) 5 L Monocytes (1.7 - 9.3 %) 4 Absolute Monocytes (0.10 - 0.60 /CUMM) 0.7 H Absolute Eosinophils (0.0 - 0.7 /CUMM) 0 Absolute Basophils (0.0 - 0.2 /CUMM) 0 Platelet Estimate (ADEQUATE) ADEQUATE Normocytic RBCs VERIFIED Normochromic RBCs VERIFIED PUBS MCHC (33.0 - 37.0 G/DL) 32.7 L Last 24 Hours of Janes Results: Blood cultures February 13 positive for Group G strep Blood cultures February 14 negative Urine culture February 13 multiple colony types consistent with contamination Recent Imaging Studies: Dopplers of both lower extremities February 14 no evidence of DVT X-ray of the left foot February 14 mild diffuse soft tissue swelling with no evidence of soft tissue air or periosteal reaction Assessment/Plan Impression: Appears to be improving with temperatures down and white blood cell count decreasing on Unasyn Day 2 of treatment for Group G strep sepsis secondary to cellulitis of the left lower extremity. Suggestion: 1. Obtain the CD and report of the CT scan of the abdomen and pelvis performed at [facility] 2. Elevation of the left leg 3. Discontinue Unasyn 4. Begin Ampicillin 2 g IV every 6 hours
[2017-02-15 22:13] VITALS: BP 140/90
[2017-02-16 06:52] VITALS: BP 150/90
--- NOTE | 2017-02-16 06:57 | PN- Housestaff ---
LASHANDA CARSON MD 02/16/17 0657: Subjective Follow-up For: Left lower extremity cellulitis Subjective: Patient seen and evaluated at bedside this AM. He was sitting up comfortably in bed getting his left lower extremity dressing changed. Patient reports he previously was hesitant to use any pain medication due to concern that it would result in constipation; however, miralax, senna and colace have been ordered and patient is willing to try percocet or dilaudid as needed for pain control. Patient also endorses new left upper, inner thigh tenseness and erythema. It was examined and no fluctuance appreciated. Review of Systems Constitutional: Denies: chills, fever. EENTM: Denies: blurred vision, visual changes, hearing changes. Cardiovascular: Denies: chest pain, palpitations. Respiratory: Denies: cough, short of breath. Gastrointestinal: Denies: abdominal pain, nausea, vomiting. Genitourinary: Denies: dysuria. Musculoskeletal: Reports: muscle pain (LLE area of cellulitis). Denies: back pain. Skin: Reports: change in skin color, erythema, lesions, rash. Neurological/Psychological: Denies: confusion, headache. Hematologic/Endocrine: Denies: bruising, bleeding. Immunologic/Allergic: Denies: splenectomy. Objective Last 24 Hrs of Vital Signs/I&O Vital Signs Date Time Temp Pulse Resp B/P B/P Pulse O2 O2 Flow FiO2 Mean Ox Delivery Rate 02/16 1421 98.2 78 20 130/70 97 Room Air 02/16 1035 142/86 02/16 0652 98.1 76 20 150/90 94 Room Air 02/15 2213 98.3 74 20 140/90 93 Intake & Output 02/16 1600 02/16 0800 02/16 0000 Intake Total 200 540 Output Total 400 1000 650 Balance -400 -800 -110 Intake, Oral 200 540 Number 0 Bowel Movements Output, Urine 400 1000 650 Physical Exam General Appearance: Alert, Oriented X3, Cooperative, No Acute Distress Skin: Left lower extremity swollen, erythematous, tender to touch; RLE with medial malleolus ulcer HEENT: Atraumatic, PERRLA, Mucous Membr. moist/pink Neck: Supple, No JVD Lymphatic: Cervical nl Cardiovascular: Regular Rate, Normal S1, Normal S2 Lungs: Clear to Auscultation, Normal Air Movement Abdomen: Normal Bowel Sounds, Soft Neurological: Normal Speech, Normal Tone Extremities: No Cyanosis Vascular: Pulses Symmetrical Current Medications: Current Medications Sig/Phillip Start time Last Medication Dose Route Stop Time Status Admin Acetaminophen 650 MG .STK-MED ONE 02/16 0404 DC PO 02/16 0405 Acetaminophen 650 MG Q6P PRN 02/14 0245 02/16 PO 0404 Acetaminophen 1,000 MG Q6 PRN 02/14 0245 DC 02/14 IV 1909 Acetaminophen/ 1 TAB Q4P PRN 02/14 0800 DC 02/15 Hydrocodone Bitart PO 1916 Ampicillin 2,000 MG Q6H 02/16 0230 02/16 Sodium Chloride 100 ML IV 0848 Ampicillin 2,000 MG Q6 02/15 1820 DC 02/15 Sodium Chloride 100 ML IV 2034 Ampicillin Sodium/ 3,000 MG Q6H 02/14 0739 DC 02/15 Sulbactam Sodium IV 1357 Sodium Chloride 100 ML Docusate Sodium 100 MG DAILY NEEDED PRN 02/16 0915 AC 02/16 PO 1038 Furosemide 20 MG DAILY 02/15 1502 AC 02/16 PO 0848 Heparin Sodium 5,000 UNIT Q8 02/14 0600 AC 02/16 (Porcine) SC 0612 Hydromorphone HCl 2 MG Q6P PRN 02/16 1315 AC 02/16 PO 1323 Lactobacillus 1 CAP BID 02/15 2200 AC 02/16 Acidophilus PO 0848 Omeprazole 40 MG DAILY AC 02/15 1110 02/16 PO 0612 Oxycodone/ 1 TAB Q6P PRN 02/16 1330 AC Acetaminophen PO Polyethylene Glycol 17 GM DAILY 02/16 1000 AC 02/16 PO 1037 Last 24 Hrs of Lab/Janes Results Last 24 Hrs of Labs/Mics: Laboratory Tests 02/16/17 0635: CBC w Diff NO MAN DIFF REQ, RBC 5.03, MCV 97.5 H, MCH 31.7 H, RDW 14.9 H, MPV 10.2, Gran % 83.2 H, Lymphocytes % 8.6 L, Monocytes % 7.9, Eosinophils % 0.2, Basophils % 0.1, Absolute Granulocytes 8.8 H, Absolute Lymphocytes 0.9 L, Absolute Monocytes 0.8 H, Absolute Eosinophils 0, Absolute Basophils 0, PUBS MCHC 32.5 L Assessment/Plan Assessment: Mr. Silverman is a 66 year old male with PMH DVT (February 2015, currently off of AC), chronic venous stasis ulcers, venous insufficiency s/p multiple skin grafts, 30 year history of non-healinng right medial malleolus ulcer, right lower extremity stent/vascular ablation, HTN, osteopenia on testosterone injections and obesity who presented to [facility] on 02[facility]14[facility] with chief complaint of shaking chills, abdominal discomfort, bilateral lower extremity pain x 2 days. In the ED: Vital signs showed T 101.8, HR 130, R 18, BP 168/74 and O2 saturation of 97% on room air. Labs were significant for: WBC 13.2 (granulocytosis 91.2%), hemoglobin 17.7, MCV 97.8, platelets 208, normal electrolytes and normal renal function. Lactate 1.5 , AST 128, ALT 57. Chest x-ray revealed cardiomegaly with mild prominence pulmonary vascular and lymphatic suspicious for mild congestion. Xray of right tibia and fibula was unremarkable with soft tissue calcification and moderate glenohumeral and small retrocalcaneal spur. Lower extremity Doppler ruled out DVT Patient is currently admitted to the general medicine floor and the following is the management: 1. Severe sepsis 2/2 left lower extremity cellulitis with chronic venous stasis and chronic non-healing wound of right medial malleolus * On admission, patient febrile, hypotensive to 80/55, WBC 13,000 and source likely left lower extremity cellulitis * Vital signs per protocol, patient hemodynamically stable with no further hypotension or fever * Continue antibiotic therapy with IV ampicillin 2 g Q6 * XRay negative for bony involvement * ID consult appreciated * Continue to elevate left lower leg * Dressing changes * Continue home lasix to prevent fluid overload * Pain control with dilaudid for severe pain, percocet for moderate; provide miralax, senna and colace to prevent constipation 2. GERD, epigastric discomfort * Noted severe heartburn with epigastric discomfort on admission * CT scan noted gallstones (done at [facility]) without cholecystitis * Patient febrile with leukocytosis of 17,000 on admission which is slowly improving, he remains afebrile and WBC 10.5 today * Monitor for transaminitis * GI evaluation in the future once current infection resolved * Continue close clinical monitoring * PO PPI daily 3. Renal abnormality * CT scan abdomen showed 1.9 cm upper pole renal hypodensity ? renal mass, no acute obstruction identified * Outpatient follow up for this issue 4. Elevated blood glucose * HgA1C elevated to 6.2 * HgA1C on this admission 5.8 * Recommend healthy lift choices, increased activity 5. Osteopenia * History of osteopenia on testosterone injections * Continue as an outpatient 6. History of DVT * Patient has previous history of DVT, has been on xarelto * Currently off AC * Lower extremity doppler ruled out current DVT FULL CODE DVTP: Heparin SC Regular diet Problem List: 1. Cellulitis of left lower extremity 2. Peripheral vascular disease 3. DVT prophylaxis 4. Full code status Pain Ratin Pain Location: LLE Pain Goal: Pain 7 or less Pain Plan: Dilaudid for severe pain, percocet for moderate, tylenol for mild. Tomorrow's Labs & Rationales: CBC (leukocytosis) PATTI ESCOBEDO,BALJIT 02/16/17 1212: Attending MD Review Statement Attending Statement Attending MD Statement: examined this patient, discuss w/resident/PA/RESEARCH RN SPEC, agreed w/resident/PA/RESEARCH RN SPEC, discussed with family, reviewed EMR data (avail), discussed with nursing, discussed with case mgmt, reviewed images, amended to note Attending Assessment/Plan: Patient seen and examined, not feeling at her. Still complaining of excruciating pain in his left lower extremity and now has a new area off redness along the inner high on the left side. Patient remains afebrile and leukocytosis is improving on exam; DBP slightly high. LLE is still very erythematous, tender on palpation. New area of erythema on left inner thigh. Laboratory Tests 02/16 06 Hematology CBC w Diff NO MAN DIFF REQ WBC (4.8 - 10.8 /CUMM) 10.5 RBC (4.70 - 6.10 /CUMM) 5.03 Hgb (14.0 - 18.0 G/DL) 16.0 Hct (42 - 52 %) 49.1 MCV (80.0 - 94.0 FL) 97.5 H MCH (27.0 - 31.0 PG) 31.7 H RDW (11.5 - 14.5 %) 14.9 H Plt Count (130 - 400 /CUMM) 131 MPV (7.4 - 10.4 FL) 10.2 Gran % (42.2 - 75.2 %) 83.2 H Lymphocytes % (20.5 - 51.1 %) 8.6 L Monocytes % (1.7 - 9.3 %) 7.9 Eosinophils % (0 - 5 %) 0.2 Basophils % (0.0 - 2.0 %) 0.1 Absolute Granulocytes (1.4 - 6.5 /CUMM) 8.8 H Absolute Lymphocytes (1.2 - 3.4 /CUMM) 0.9 L Absolute Monocytes (0.10 - 0.60 /CUMM) 0.8 H Absolute Eosinophils (0.0 - 0.7 /CUMM) 0 Absolute Basophils (0.0 - 0.2 /CUMM) 0 PUBS MCHC (33.0 - 37.0 G/DL) 32.5 L A/P; 66-year-old male with chronic venous insufficiency status post stenting, nonhealing chronic ulcer on the right medial malleolus, is admitted with sepsis 2/2 to lle cellulitis. As discussed with Dr. Gutierrez, we'll continue ampicillin. Will monitor the erythema and transaminitis. Patient can take some Percocet for pain control. He can be started on bowel regimen if he is concerned about opiate-induced constipation. DVT prophylaxis: Heparin subcutaneous MPV (7.4 - 10.4 FL) 10.2 Gran % (42.2 - 75.2 %) 83.2 H Lymphocytes % (20.5 - 51.1 %) 8.6 L Monocytes % (1.7 - 9.3 %) 7.9 Eosinophils % (0 - 5 %) 0.2 Basophils % (0.0 - 2.0 %) 0.1 Absolute Granulocytes (1.4 - 6.5 /CUMM) 8.8 H Absolute Lymphocytes (1.2 - 3.4 /CUMM) 0.9 L Absolute Monocytes (0.10 - 0.60 /CUMM) 0.8 H Absolute Eosinophils (0.0 - 0.7 /CUMM) 0 Absolute Basophils (0.0 - 0.2 /CUMM) 0 PUBS MCHC (33.0 - 37.0 G/DL) 32.5 L A/P; 66-year-old male with chronic venous insufficiency status post stenting, nonhealing chronic ulcer on the right medial malleolus, is admitted with sepsis 2/2 to lle cellulitis. As discussed with Dr. Gutierrez, we'll continue ampicillin. Will monitor the erythema and transaminitis. Patient can take some Percocet for pain control. He can be started on bowel regimen if he is concerned about opiate-induced constipation. DVT prophylaxis: Heparin subcutaneous
[2017-02-16 08:46] LABS: ABSOLUTE BASOPHIL COUNT 0 /CUMM (0.0-0.2); ABSOLUTE EOSINOPHIL COUNT 0 /CUMM (0.0-0.7); ABSOLUTE GRANULOCYTE CT 8.8 /CUMM (1.4-6.5); ABSOLUTE LYMPH COUNT 0.9 /CUMM (1.2-3.4); ABSOLUTE MONOCYTE COUNT 0.8 /CUMM (0.10-0.60); BASOPHIL % 0.1 % (0.0-2.0); EOSINOPHIL % 0.2 % (0-5); GRANULOCYTE % 83.2 % (42.2-75.2); HEMATOCRIT 49.1 % (42-52); MEAN CORPUSCULAR HGB 31.7 PG (27.0-31.0); MEAN CORPUSCULAR HGB CONC 32.5 G/DL (33.0-37.0); MEAN CORPUSCULAR VOLUME 97.5 FL (80.0-94.0); MEAN PLATELET VOLUME 10.2 FL (7.4-10.4); PLATELET COUNT 131 /CUMM (130-400); RBC DISTRIBUTION WIDTH 14.9 % (11.5-14.5); RED BLOOD CELL CT 5.03 /CUMM (4.70-6.10); WHITE BLOOD CELL COUNT 10.5 /CUMM (4.8-10.8)
[2017-02-16 10:35] VITALS: BP 142/86
--- NOTE | 2017-02-16 11:49 | PN- Infect Dx ---
Subjective Subjective: Afebrile. He complains of persistent pain in the left leg and notes a new area of erythema and tenderness in the left upper thigh/groin area Objective Last 24 Hrs of Vital Signs/I&O Vital Signs Date Time Temp Pulse Resp B/P B/P Pulse O2 O2 Flow FiO2 Mean Ox Delivery Rate 02/16 1035 142/86 02/16 0652 98.1 76 20 150/90 94 Room Air 02/15 2213 98.3 74 20 140/90 93 02/15 1406 99.5 80 18 126/86 95 Room Air Intake & Output 02/16 1600 02/16 0800 02/16 0000 Intake Total 200 540 Output Total 400 1000 650 Balance -400 -800 -110 Intake, Oral 200 540 Number 0 Bowel Movements Output, Urine 400 1000 650 Physical Exam Other Physical Findings: He appears comfortable in no acute distress Extremities decreased erythema of the left leg, with minimal tenderness on palpation; new area of erythema and mild tenderness on the anterior aspect of the left thigh, with no tenderness over the left groin Results Last 24 Hours of Lab Results: Laboratory Tests 02/16 06 Hematology CBC w Diff NO MAN DIFF REQ WBC (4.8 - 10.8 /CUMM) 10.5 RBC (4.70 - 6.10 /CUMM) 5.03 Hgb (14.0 - 18.0 G/DL) 16.0 Hct (42 - 52 %) 49.1 MCV (80.0 - 94.0 FL) 97.5 H MCH (27.0 - 31.0 PG) 31.7 H RDW (11.5 - 14.5 %) 14.9 H Plt Count (130 - 400 /CUMM) 131 MPV (7.4 - 10.4 FL) 10.2 Gran % (42.2 - 75.2 %) 83.2 H Lymphocytes % (20.5 - 51.1 %) 8.6 L Monocytes % (1.7 - 9.3 %) 7.9 Eosinophils % (0 - 5 %) 0.2 Basophils % (0.0 - 2.0 %) 0.1 Absolute Granulocytes (1.4 - 6.5 /CUMM) 8.8 H Absolute Lymphocytes (1.2 - 3.4 /CUMM) 0.9 L Absolute Monocytes (0.10 - 0.60 /CUMM) 0.8 H Absolute Eosinophils (0.0 - 0.7 /CUMM) 0 Absolute Basophils (0.0 - 0.2 /CUMM) 0 PUBS MCHC (33.0 - 37.0 G/DL) 32.5 L Last 24 Hours of Janes Results: Blood cultures February 14 negative Assessment/Plan Impression: Appears to be improving with temperatures and white blood cell count normal now on Ampicillin Day 3 of treatment for Group G strep sepsis secondary to cellulitis of the left lower extremity. He does have an area of lymphangitis in the left upper thigh, which appears to be new, but, given his normal temperatures and white blood cell count, feel that his current antibiotic regimen can be continued. Suggestion: 1. Elevation of the left leg 2. Continue Ampicillin
--- NOTE | 2017-02-16 13:18 | PN- Student ---
Subjective Subjective: This morning Mr. Silverman states he still feels the same. He reports a pain of 10/ 10 in the left leg with the soreness extending up to inner left thigh. He has a new erythematous patch in the left upper thigh that he says is new and is sore and warm to the touch. tingling sensation in the feet were also reported but does not cause any discomfort. He reports some abdominal discomfort today that is described as "gassy feeling". He has not had a bowel movement since admission and states that he has no appetite. He denies any fever but states that he does experience some periods of sweats followed by chills. He also reports a slight headache that comes and goes. He denies any vision problems, chest pain, palpitations, breathing problems, cough, or any problems urinating. Objective Objective: Vital Signs Date Time Temp Pulse Resp B/P B/P Pulse O2 O2 Flow FiO2 Mean Ox Delivery Rate 02/16 1035 142/86 02/16 0652 98.1 76 20 150/90 94 Room Air 02/15 2213 98.3 74 20 140/90 93 /05 1406 99.5 80 18 126/86 95 Room Air Intake & Output 02/16 1600 /06 0800 06/06 0000 Intake Total 200 540 Output Total 400 1000 650 Balance -400 -800 -110 Intake, Oral 200 540 Number 0 Bowel Movements Output, Urine 400 1000 650 Diagnostics on admission: CT from [facility]- cholelithiasis with no cholecysitis, bilateral non obstructing renal calculi, 1.9cm focal low attenuated area with internal heterogeneous density within left kidney upper lobe, further evaluation with CT/ MRI renal mass protocol is recommended to rule out renal neoplasm. Enlarged left inguinal lymph node with surrounding fat infiltration, suspicious for infective lymphadenitis, small hiatal hernia. UA- unremarkable CXR- cardiomegaly, mild pulmonary vascular and lymphatic prominence possibly due to mild congestion. X-Ray of Tib/Fib- soft tissue calcification and retrocalcaneal spur Venous doppler- negative for DVT PE: General- no acute distress, well nourished man, AAO x 3, cooperative. HEENT- atruamatic, PERRLA, membranes moist and pink Neck- supple, no lymphadenopathy or thyromegaly, trachea is midline CV- S1 and S2 heard, regular rate and rhythm, no murmurs or rubs auscultated Chest- equal rise bilaterally, vesicular sounds heard throughout, no distress Abd- not distended, bowel sounds heard, soft and non tender to palpation Skin- erythematous swelling noted on left leg from foot to knee, outlined with marker for progress assessment. erythema and soreness has progressed beyond the border marked yesterday. 3cm x 3 cm wound noted on left foot that was bandaged and not weeping. Right leg was not erythematous or swollen. 1cm x 1 cm wound bandaged on right medial foot that was weeping serous fluid. Patient has a new erythematous rash on upper medial thigh on the left side that is sore and warm to touch. Border was marked. Ext- 5/5 strength x 4 extremities, motor and sensation grossly intact. Results Results: Laboratory Tests 02/16/17 0635: CBC w Diff NO MAN DIFF REQ, RBC 5.03, MCV 97.5 H, MCH 31.7 H, RDW 14.9 H, MPV 10.2, Gran % 83.2 H, Lymphocytes % 8.6 L, Monocytes % 7.9, Eosinophils % 0.2, Basophils % 0.1, Absolute Granulocytes 8.8 H, Absolute Lymphocytes 0.9 L, Absolute Monocytes 0.8 H, Absolute Eosinophils 0, Absolute Basophils 0, PUBS MCHC 32.5 L 02/15/17 0718: CBC w Diff MAN DIFF ORDERED, RBC 4.78, MCV 98.1 H, MCH 32.1 H, RDW 15.1 H, MPV 9.5, Gran % 89.4 H, Lymphocytes % 5.4 L, Monocytes % 5.1, Eosinophils % 0.1, Basophils % 0 L, Absolute Granulocytes 12.4 H, Segmented Neutrophils 84 H, Band Neutrophils 7 H, Absolute Lymphocytes 0.8 L, Lymphocytes 5 L, Monocytes 4, Absolute Monocytes 0.7 H, Absolute Eosinophils 0, Absolute Basophils 0, Platelet Estimate ADEQUATE, Normocytic RBCs VERIFIED, Normochromic RBCs VERIFIED, PUBS MCHC 32.7 L 02/15/17 0620: Anion Gap 10, Estimated GFR > 60, BUN/Creatinine Ratio 15.0 02/14/17 1435: Anion Gap 10, Estimated GFR > 60, BUN/Creatinine Ratio 18.3 02/14/17 0450: Lactic Acid 1.7 02/14/17 0450: Anion Gap 10, Estimated GFR 51 L, BUN/Creatinine Ratio 14.3, Hemoglobin A1c 5.8 , CBC w Diff MAN DIFF ORDERED, RBC 4.85, MCV 96.8 H, MCH 31.8 H, RDW 14.9 H, MPV 9.1, Gran % 95.4 H, Lymphocytes % 1.6 L, Monocytes % 3.0, Eosinophils % 0, Basophils % 0 L, Absolute Granulocytes 16.9 H, Segmented Neutrophils 79 H, Band Neutrophils 17 H, Absolute Lymphocytes 0.3 L, Lymphocytes 4 L, Absolute Monocytes 0.5, Absolute Eosinophils 0, Absolute Basophils 0, Platelet Estimate ADEQUATE, Normocytic RBCs VERIFIED, Normochromic RBCs VERIFIED, PUBS MCHC 32.9 L 02/13/172029: Urine Color YEL, Urine Clarity CLEAR, Urine pH 8.0, Ur Specific [place] 1.015, Urine Protein NEG, Urine Ketones NEG, Urine Nitrite NEG, Urine Bilirubin NEG, Urine Urobilinogen 1.0, Ur Leukocyte Esterase NEG, Ur Microscopic EXAM NOT REQUIRED, Urine Hemoglobin NEG, Urine Glucose NEG 02/13/171949: Lactic Acid Cancelled 02/13/17 1950: Anion Gap 12, Estimated GFR > 60, BUN/Creatinine Ratio 16.4, Glucose 115 H, Lactic Acid 1.5, Calcium 9.9, Total Bilirubin 0.9, AST 28, ALT 57, Alkaline Phosphatase 90, Troponin I < 0.01, Total Protein 8.2, Albumin 4.9, Globulin 3.3, Albumin/Globulin Ratio 1.5, Amylase 54, Lipase 184, PT 11.3, INR 1.08, APTT 30, CBC w Diff NO MAN DIFF REQ, RBC 5.57, MCV 97.8 H, MCH 31.7 H, RDW 14.8 H, MPV 8.6, Gran % 91.2 H, Lymphocytes % 4.5 L, Monocytes % 2.9, Eosinophils % 1.3, Basophils % 0.1, Absolute Granulocytes 12.0 H, Absolute Lymphocytes 0.6 L, Absolute Monocytes 0.4, Absolute Eosinophils 0.2, Absolute Basophils 0, PUBS MCHC 32.5 L Microbiology 02/14 08 BLOOD: Blood Culture - RES 02/14 0801 BLOOD: Blood Culture - RES 02/13 2030 URINE ROUT: Urine Culture - COMP 02/13 1955 BLOOD: Blood Culture - COMP BETA STREP GROUP G 02/13 1950 BLOOD: Blood Culture - COMP BETA STREP GROUP G Assessment/Plan Assessment: Mr. Silverman is a 66 yo white male with a PMH of HTN, chronic venous stasis w/ ulcers (s/p multiple skin grafts), Lower extremity DVT (was on xarelto), osteopenia (testosterone depot injections), and obesity. He has also had vascular stent in right lower extremity and venous ablation in the past. He presented to the ED on 02/13/2017 with shaking chills, abdominal pain, and bilateral lower extremity pain for 2 days duration. Also had sores on both medial feet, 1cm x 1cm on the right foot and 3cm x 3cm on left foot, as well as erythema of the left leg from ankle to toe. On admission his vitals were: temp- 101.8, HR- 118, RR- 20, BP- 110/74, SpO2- 96% on room air. Labs significant for: WBC- 13.2 with left shift, H/H- 17.7/54.5, MCV- 99.8, Lactic acid- 1.5, anion gap- 12, amylase-54, lipase- 184, INR- 1.08, BUN- 18, Siphoner- 1.1 -patient was treated in ED with saline bolus, protonix 40mg IV, toradol 30 mg IV , Unasyn 3000mg IV and tylenol 1000mg IV -blood cultures grew gram-positive cocci in chains- beta strep on admission but repeat cultures show now growth after one day. -Abdominal CT:cholelithiasis with no cholecysitis, bilateral non obstructing renal calculi, 1.9cm focal low attenuated area with internal heterogeneous density within left kidney upper lobe, further evaluation with CT/MRI renal mass protocol is recommended to rule out renal neoplasm. Enlarged left inguinal lymph node with surrounding fat infiltration, suspicious for infective lymphadenitis, small hiatal hernia. Today patient feels about the same. There was some extension of the erythema of his cellulitis of the left leg beyond the marked border from yesterday. He also shows a new patch of the upper medial left thight as well, border has been marked. Soreness extends up to the new patch and is described as severe. He also has some abdominal discomfort most likely caused by constipation as he has not had a BM in a few days. Vitals today: temp-98.1, Hr- 76, RR- 20, BP- 150/90, SpO2- 94% on room air. Labs today were significant for WBC- 10.5, H/H- 16.0/49.1 , MCV- 97.5. Current Medications Sig/Phillip Start time Last Medication Dose Route Stop Time Status Admin Acetaminophen 650 MG .STK-MED ONE 02/16 0404 DC PO 02/16 0405 Acetaminophen 650 MG Q6P PRN 02/14 0245 AC 02/16 PO 0404 Acetaminophen 1,000 MG Q6 PRN 02/14 0245 AC 02/14 IV 1909 Acetaminophen/ 1 TAB Q4P PRN 02/14 0800 AC 02/15 Hydrocodone Bitart PO 1916 Ampicillin 2,000 MG Q6H 02/16 0230 02/16 Sodium Chloride 100 ML IV 0848 Ampicillin 2,000 MG Q6 02/15 1820 FL 02/15 Sodium Chloride 100 ML IV 2034 Ampicillin Sodium/ 3,000 MG Q6H 02/14 0739 FL 02/15 Sulbactam Sodium IV 1357 Sodium Chloride 100 ML Docusate Sodium 100 MG DAILY NEEDED PRN 02/16 0915 AC 02/16 PO 1038 Furosemide 20 MG DAILY 02/15 1502 AC 02/16 PO 0848 Heparin Sodium 5,000 UNIT Q8 02/14 0600 AC 02/16 (Porcine) SC 0612 Hydromorphone HCl 2 MG Q6P PRN 02/16 1315 UNVr 02/16 PO 1323 Lactobacillus 1 CAP BID 02/15 2200 AC 02/16 Acidophilus PO 0848 Omeprazole 40 MG DAILY AC 02/15 1110 AC 02/16 PO 0612 Patient Medication 1 ED .STK-MED ONE 02/15 1408 FL Teaching ED 02/15 1409 Polyethylene Glycol 17 GM DAILY 02/16 1000 AC 02/16 PO 1037 Plan: Patient has been seen by ID, will continue to follow recommendations. WBC count has decreased today to 10.5 from 13.9 which shows some improvement. He also has had a peak temp of 99.5 in the last 24 hrs. He was switched from Unasyn to ampicillin yesterday and was restarted on his home dose of lasix. Will treat pain with Dilaudid 2mg Q6P and Percocet 1 tab Q4P and follow ID recommendations on treatment of the cellulitis and new lymphadenitis. Will also add bowel regimen for patients constipation- Colace- 100mg PO daily , Miralax- 17gm PO daily ID recommendations: -continue ampicillin -elevate leg Problem List: 1. Cellulitis of left lower extremity- -continue to treat pain with tylenol but add dilaudid 2mg Q6 PRN and percocet 1 tab Q4 PRN -discontinue unyson, switch to ampicillin (day 2) as per ID- blood cultures showed gram-positive cocci in chains- beta hemolytic strep (may add lactobacillus) -monitor labs and marked border for improvement 2. Sepsis with leukocytosis- -continue to monitor vitals and labs -follow ID note -tylenol for fever -stopped IV fluid -continue antibiotics as above 3. Chronis venous stasis w/ ulcers- -doppler negative for DVT -continue wound protocol for ulcers -continue antibiotics as above 4. Abdominal pain- -continue treatment with omeprazole -pain has resolved for now, currently taking pain medications for cellulitis. -CT showed cholelithiasis, and 1.9 cm mass on left kidney upper lobe (will need outpatient follow up), and small hiatal hernia. 5. HTN- -Continue lasix 20 mg PO daily and monitor BP. Diet- normal Code Status- Full DVT prophylaxis- SQ heparin
[2017-02-16 14:21] VITALS: BP 130/70
[2017-02-16 22:27] VITALS: BP 124/60
[2017-02-17 06:03] VITALS: BP 132/68
--- NOTE | 2017-02-17 06:42 | PN- Housestaff ---
LASHANDA CARSON MD 02/17/17 0642: Subjective Follow-up For: Left lower extremity cellulitis Subjective: Patient seen and examined at bedside this AM. He was resting comfortably in bed in no acute distress. He reports his pain is much improved today to a level of 6 /10 which is improved with the pain regimen we have him on. He is ambulating well is feeling closer to his baseline. Review of Systems Constitutional: Denies: chills, fever. EENTM: Denies: visual changes, hearing changes. Cardiovascular: Denies: chest pain, palpitations. Respiratory: Denies: cough, short of breath. Gastrointestinal: Denies: abdominal pain, nausea. Genitourinary: Denies: dysuria, hematuria. Musculoskeletal: Denies: back pain. Skin: Reports: erythema, lesions. Neurological/Psychological: Denies: confusion, headache. Hematologic/Endocrine: Denies: bruising, bleeding. Immunologic/Allergic: Denies: splenectomy. Objective Last 24 Hrs of Vital Signs/I&O Vital Signs Date Time Temp Pulse Resp B/P B/P Pulse O2 O2 Flow FiO2 Mean Ox Delivery Rate 02/17 0603 98.2 75 20 132/68 96 Room Air 02/16 2227 98.3 82 20 124/60 96 02/16 1421 98.2 78 20 130/70 97 Room Air Intake & Output 02/17 1600 02/17 0800 02/17 0000 Intake Total 270 150 Output Total 650 Balance -380 150 Intake, IV 150 150 Intake, Oral 120 Output, Urine 650 Patient 299 lb Weight Physical Exam General Appearance: Alert, Oriented X3, Cooperative, No Acute Distress Skin: Left lower extremity erythema improving from yesterday, right lower extremity with medial malleolus ulcer Skin Temp/Moisture Exam: Warm/Dry HEENT: Atraumatic, PERRLA, EOMI, Mucous Membr. moist/pink Neck: Supple, No JVD Lymphatic: Cervical nl Cardiovascular: Regular Rate, Normal S1, Normal S2, No Murmurs Lungs: Clear to Auscultation, Normal Air Movement Abdomen: Normal Bowel Sounds, Soft Neurological: Normal Gait, Normal Speech Extremities: LLE cellulitis as noted above Vascular: Pulses Symmetrical Current Medications: Current Medications Sig/Phillip Start time Last Medication Dose Route Stop Time Status Admin Acetaminophen 650 MG .STK-MED ONE 02/17 22 DC PO 06/07 0023 Acetaminophen 650 MG Q6P PRN 02/14 0245 AC 02/17 PO 0839 Amoxicillin 500 MG Q12 02/18 1000 AC PO Ampicillin 2,000 MG Q6H 02/16 0230 AC 02/17 Sodium Chloride 100 ML IV 02/18 0100 0840 Docusate Sodium 100 MG DAILY NEEDED PRN 02/16 0915 AC 02/16 PO 1038 Furosemide 20 MG DAILY 02/15 1502 AC 02/17 PO 0840 Heparin Sodium 5,000 UNIT Q8 02/14 0600 AC 02/17 (Porcine) SC 0515 Hydromorphone HCl 2 MG Q6P PRN 02/16 1315 DC 02/16 PO 2102 Lactobacillus 1 CAP BID 02/15 2200 AC 02/17 Acidophilus PO 0840 Omeprazole 40 MG DAILY AC 02/15 1110 AC 02/17 PO 0515 Oxycodone/ 1 TAB Q6P PRN 02/16 1330 AC 02/16 Acetaminophen PO 1819 Polyethylene Glycol 17 GM DAILY 02/16 1000 AC 02/17 PO 0840 Last 24 Hrs of Lab/Janes Results Last 24 Hrs of Labs/Mics: Laboratory Tests 02/17/17 0610: CBC w Diff NO MAN DIFF REQ, RBC 4.75, MCV 97.8 H, MCH 31.7 H, RDW 14.8 H, MPV 9.9, Gran % 62.8, Lymphocytes % 22.2, Monocytes % 12.2 H, Eosinophils % 2.5, Basophils % 0.3, Absolute Granulocytes 4.7, Absolute Lymphocytes 1.7, Absolute Monocytes 0.9 H, Absolute Eosinophils 0.2, Absolute Basophils 0, PUBS MCHC 32.4 L Assessment/Plan Assessment: Mr. Silverman is a 66 year old male with PMH DVT (February 2015, currently off of AC), chronic venous stasis ulcers, venous insufficiency s/p multiple skin grafts, 30 year history of non-healinng right medial malleolus ulcer, right lower extremity stent/vascular ablation, HTN, osteopenia on testosterone injections and obesity who presented to on 02/14/17 with chief complaint of shaking chills, abdominal discomfort, bilateral lower extremity pain x 2 days. In the ED: Vital signs showed T 101.8, HR 130, R 18, BP 168/74 and O2 saturation of 97% on room air. Labs were significant for: WBC 13.2 (granulocytosis 91.2%), hemoglobin 17.7, MCV 97.8, platelets 208, normal electrolytes and normal renal function. Lactate 1.5 , AST 128, ALT 57. Chest x-ray revealed cardiomegaly with mild prominence pulmonary vascular and lymphatic suspicious for mild congestion. Xray of right tibia and fibula was unremarkable with soft tissue calcification and moderate glenohumeral and small retrocalcaneal spur. Lower extremity Doppler ruled out DVT Patient is currently admitted to the general medicine floor and the following is the management: 1. Severe sepsis 2/2 left lower extremity cellulitis with chronic venous stasis and chronic non-healing wound of right medial malleolus * On admission, patient febrile, hypotensive to 80/55, WBC 13,000 and source likely left lower extremity cellulitis * Vital signs per protocol, patient hemodynamically stable with no further hypotension or fever * Continue antibiotic therapy with IV ampicillin 2 g Q6, switch to PO amoxicillin 1000 mg Q8 tomorrow prior to discharge * XRay negative for bony involvement * ID consult appreciated, continue to follow recommendations * Continue to elevate left lower leg, OOBTC * Dressing changes to continue * Continue home lasix to prevent fluid overload * Pain control with percocet; provide miralax, senna and colace PRN to prevent constipation 2. GERD, epigastric discomfort * Noted severe heartburn with epigastric discomfort on admission * CT scan noted gallstones (done at [facility]) without cholecystitis * Monitor for transaminitis * GI evaluation in the future once current infection resolved * Continue close clinical monitoring * PO PPI daily 3. Renal abnormality * CT scan abdomen showed 1.9 cm upper pole renal hypodensity ? renal mass, no acute obstruction identified * Outpatient follow up for this issue 4. Elevated blood glucose * HgA1C elevated to 6.2 * HgA1C on this admission 5.8 * Recommend healthy lift choices, increased activity, low carb diet 5. Osteopenia * History of osteopenia on testosterone injections * Continue as an outpatient 6. History of DVT * Patient has previous history of DVT, has previously been on xarelto * Currently off AC * Lower extremity doppler ruled out current DVT FULL CODE DVTP: Heparin SC Regular diet Problem List: 1. Cellulitis 2. Chronic venous hypertension (idiopathic) with inflammation of bilateral lower extremity 3. Peripheral vascular disease 4. Leg edema Pain Ratin Pain Location: Left lower extremity Pain Goal: Pain 4 or less Pain Plan: Percocet Tomorrow's Labs & Rationales: None. BALJIT ARMSTRONG MD 02/17/17 1219: Attending MD Review Statement Attending Statement Attending MD Statement: examined this patient, discuss w/resident/PA/DRAFTING SUPERVISOR, agreed w/resident/PA/DRAFTING SUPERVISOR, reviewed EMR data (avail), discussed with nursing, reviewed images, amended to note Attending Assessment/Plan: Patient seen and examined, overall feeling better today. The left lower extremity erythema is improving and now is getting darkened. The erythema on the left thigh is also improving. White blood cell count is improving and patient remains afebrile. Pain is also better. Overall improvement. As discussed with Dr. Gutierrez, will switch him to amoxicillin by mouth in the morning. If patient continues to improve then he will be a possible discharge tomorrow. Continue all current medications. DVT px: Heparin subcutaneous. DVT px: Heparin subcutaneous.
[2017-02-17 07:59] LABS: ABSOLUTE BASOPHIL COUNT 0 /CUMM (0.0-0.2); ABSOLUTE EOSINOPHIL COUNT 0.2 /CUMM (0.0-0.7); ABSOLUTE GRANULOCYTE CT 4.7 /CUMM (1.4-6.5); ABSOLUTE LYMPH COUNT 1.7 /CUMM (1.2-3.4); ABSOLUTE MONOCYTE COUNT 0.9 /CUMM (0.10-0.60); BASOPHIL % 0.3 % (0.0-2.0); EOSINOPHIL % 2.5 % (0-5); GRANULOCYTE % 62.8 % (42.2-75.2); HEMATOCRIT 46.4 % (42-52); MEAN CORPUSCULAR HGB 31.7 PG (27.0-31.0); MEAN CORPUSCULAR HGB CONC 32.4 G/DL (33.0-37.0); MEAN CORPUSCULAR VOLUME 97.8 FL (80.0-94.0); MEAN PLATELET VOLUME 9.9 FL (7.4-10.4); PLATELET COUNT 143 /CUMM (130-400); RBC DISTRIBUTION WIDTH 14.8 % (11.5-14.5); RED BLOOD CELL CT 4.75 /CUMM (4.70-6.10); WHITE BLOOD CELL COUNT 7.4 /CUMM (4.8-10.8)
--- NOTE | 2017-02-17 08:30 | PN- Student ---
Subjective Subjective: Today Mr. Silverman complains of slight headaches localized to the front of his head. He states that he doesnt have any seasonal allergies. the left leg is still sore (6/10) and swollen but is has improved well since yesterday. Lymphangitis is still present and hasnt worsened, he states the soreness of the leg has receded to just the erythematous area today. His abdominal discomfort has dissipated and he reports a bowel movement yesterday. He denies any abdominal pain, chest pain, fever or chills, chest pain, breathing issues, or dysuria. Objective Objective: Vital Signs Date Time Temp Pulse Resp B/P B/P Pulse O2 O2 Flow FiO2 Mean Ox Delivery Rate 02/17 0603 98.2 75 20 132/68 96 Room Air 02/16 2227 98.3 82 20 124/60 96 02/16 1421 98.2 78 20 130/70 97 Room Air 02/16 1035 142/86 Intake & Output 02/17 1600 02/17 0800 02/17 0000 Intake Total 270 150 Output Total 650 Balance -380 150 Intake, IV 150 150 Intake, Oral 120 Output, Urine 650 Diagnostics on admission: [facility] from [facility]- cholelithiasis with no cholecysitis, bilateral non obstructing renal calculi, 1.9cm focal low attenuated area with internal heterogeneous density within left kidney upper lobe, further evaluation with CT/ MRI renal mass protocol is recommended to rule out renal neoplasm. Enlarged left inguinal lymph node with surrounding fat infiltration, suspicious for infective lymphadenitis, small hiatal hernia. UA- unremarkable CXR- cardiomegaly, mild pulmonary vascular and lymphatic prominence possibly due to mild congestion. X-Ray of Tib/Fib- soft tissue calcification and retrocalcaneal spur Venous doppler- negative for DVT PE: General- no acute distress, well nourished man, AAO x 3, cooperative. HEENT- atruamatic, PERRLA, membranes moist and pink Neck- supple, no lymphadenopathy or thyromegaly, trachea is midline CV- S1 and S2 heard, regular rate and rhythm, no murmurs or rubs auscultated Chest- equal rise bilaterally, vesicular sounds heard throughout, no distress Abd- not distended, bowel sounds heard, soft and non tender to palpation Skin- erythematous swelling noted on left leg from foot to knee, outlined with marker for progress assessment. erythema and soreness has regressed back inside marked border. 3cm x 3 cm wound noted on left foot has scabbed over well. Right leg was not erythematous or swollen. 1cm x 1 cm wound bandaged on right medial foot was bandaged and healing well. Patient still has a erythematous rash on upper medial thigh on the left side that is sore and warm to touch. Border was marked. Ext- 5/5 strength x 4 extremities, motor and sensation grossly intact. Results Results: Laboratory Tests 02/17/17 0610: CBC w Diff NO MAN DIFF REQ, RBC 4.75, MCV 97.8 H, MCH 31.7 H, RDW 14.8 H, MPV 9.9, Gran % 62.8, Lymphocytes % 22.2, Monocytes % 12.2 H, Eosinophils % 2.5, Basophils % 0.3, Absolute Granulocytes 4.7, Absolute Lymphocytes 1.7, Absolute Monocytes 0.9 H, Absolute Eosinophils 0.2, Absolute Basophils 0, PUBS MCHC 32.4 L 02/16/17 0635: CBC w Diff NO MAN DIFF REQ, RBC 5.03, MCV 97.5 H, MCH 31.7 H, RDW 14.9 H, MPV 10.2, Gran % 83.2 H, Lymphocytes % 8.6 L, Monocytes % 7.9, Eosinophils % 0.2, Basophils % 0.1, Absolute Granulocytes 8.8 H, Absolute Lymphocytes 0.9 L, Absolute Monocytes 0.8 H, Absolute Eosinophils 0, Absolute Basophils 0, PUBS MCHC 32.5 L 02/15/17 0718: CBC w Diff MAN DIFF ORDERED, RBC 4.78, MCV 98.1 H, MCH 32.1 H, RDW 15.1 H, MPV 9.5, Gran % 89.4 H, Lymphocytes % 5.4 L, Monocytes % 5.1, Eosinophils % 0.1, Basophils % 0 L, Absolute Granulocytes 12.4 H, Segmented Neutrophils 84 H, Band Neutrophils 7 H, Absolute Lymphocytes 0.8 L, Lymphocytes 5 L, Monocytes 4, Absolute Monocytes 0.7 H, Absolute Eosinophils 0, Absolute Basophils 0, Platelet Estimate ADEQUATE, Normocytic RBCs VERIFIED, Normochromic RBCs VERIFIED, PUBS MCHC 32.7 L 02/15/17 0620: Anion Gap 10, Estimated GFR > 60, BUN/Creatinine Ratio 15.0 02/14/17 1435: Anion Gap 10, Estimated GFR > 60, BUN/Creatinine Ratio 18.3 Assessment/Plan Assessment: Mr. Silverman is a 66 yo white male with a PMH of HTN, chronic venous stasis w/ ulcers (s/p multiple skin grafts), Lower extremity DVT (was on xarelto), osteopenia (testosterone depot injections), and obesity. He has also had vascular stent in right lower extremity and venous ablation in the past. He presented to the ED on 02/13/2017 with shaking chills, abdominal pain, and bilateral lower extremity pain for 2 days duration. Also had sores on both medial feet, 1cm x 1cm on the right foot and 3cm x 3cm on left foot, as well as erythema of the left leg from ankle to toe. On admission his vitals were: temp- 101.8, HR- 118, RR- 20, BP- 110/74, SpO2- 96% on room air. Labs significant for: WBC- 13.2 with left shift, H/H- 17.7/54.5, MCV- 99.8, Lactic acid- 1.5, anion gap- 12, amylase-54, lipase- 184, INR- 1.08, BUN- 18, [employer]- 1.1 -patient was treated in ED with saline bolus, protonix 40mg IV, toradol 30 mg IV , Unasyn 3000mg IV and tylenol 1000mg IV -blood cultures grew gram-positive cocci in chains- beta strep on admission but repeat cultures show now growth after one day. -Abdominal CT:cholelithiasis with no cholecysitis, bilateral non obstructing renal calculi, 1.9cm focal low attenuated area with internal heterogeneous density within left kidney upper lobe, further evaluation with CT/MRI renal mass protocol is recommended to rule out renal neoplasm. Enlarged left inguinal lymph node with surrounding fat infiltration, suspicious for infective lymphadenitis, small hiatal hernia. Today patient is feeling much better. His cellulitis has improved and he his pain is decreased to 6/10. The erythematous area has receded back inside the marked area and the swelling has improved some. The lymphangitis is still confined in its drawn border and the soreness that was encompassing the entire length of the inner leg and thigh yesterday is confined to only erythematous areas. He has not had any fevers or abdominal discomfort since yesterday and reported a bowel movement yesterday. Vitals today were temp- 98.2, HR- 75, RR- 20, BP- 132/68, SpO2- 96% on room air. Pertinent labs were WBC- 7.4, H/H- 15.1/ 46.4, MCV- 97.8. Current Medications Sig/Phillip Start time Last Medication Dose Route Stop Time Status Admin Acetaminophen 650 MG .STK-MED ONE 02/17 0022 DC PO 02/17 0023 Acetaminophen 650 MG Q6P PRN 02/14 0245 AC 02/17 PO 0023 Acetaminophen 1,000 MG Q6 PRN 02/14 0245 DC 02/14 IV 1909 Acetaminophen/ 1 TAB Q4P PRN 02/14 0800 DC 02/15 Hydrocodone Bitart PO 1916 Ampicillin 2,000 MG Q6H 02/16 0230 AC 02/17 Sodium Chloride 100 ML IV 0326 Docusate Sodium 100 MG DAILY NEEDED PRN 02/16 0915 AC 02/16 PO 1038 Furosemide 20 MG DAILY 02/15 1502 AC 02/16 PO 0848 Heparin Sodium 5,000 UNIT Q8 02/14 0600 AC 02/17 (Porcine) SC 0515 Hydromorphone HCl 2 MG Q6P PRN 02/16 1315 AC 02/16 PO 2102 Lactobacillus 1 CAP BID 02/15 2200 AC 02/16 Acidophilus PO 2102 Omeprazole 40 MG DAILY AC 02/15 1110 AC 02/17 PO 0515 Oxycodone/ 1 TAB Q6P PRN 02/16 1330 AC 02/16 Acetaminophen PO 1819 Polyethylene Glycol 17 GM DAILY 02/16 1000 AC 02/16 PO 1037 Plan: Patient is improving. Continue to follow ID note and monitor labs. Tylenol PO for headaches. Probably discharge tomorrow. ID recommendation: -keep leg elevated -continue amoxicillin, if he continues to improve can switch to PO amoxicillin 1000mg Q8Hr to finish out 10-14 day schedule. Problem List: 1. Cellulitis of left lower extremity- -continue to treat pain with tylenol and percocet 1 tab Q4 PRN, discontinued dilaudid 2mg Q6 PRN, patient also on colace and miralax as per bowel regimen. -continue ampicillin (day 4) as per ID- blood cultures showed gram-positive cocci in chains- beta hemolytic strep (also on lactobacillus) -monitor labs and marked border for improvement (WBC today was 7.4) -continue to elevate leg to allow for improved venous return 2. Sepsis with leukocytosis- -continue to monitor vitals and labs -follow ID note -tylenol for fever and headaches -stopped IV fluid -continue antibiotics as above 3. Chronic venous stasis w/ ulcers- -doppler negative for DVT -continue wound protocol for ulcers -continue antibiotics and elevation as above -ambulate as tolerated to assist venous return 4. Abdominal pain- -continue treatment with omeprazole -pain has resolved for now, currently taking pain medications for cellulitis. -CT showed cholelithiasis, and 1.9 cm mass on left kidney upper lobe (will need outpatient follow up), and small hiatal hernia. 5. HTN- -Continue lasix 20 mg PO daily and monitor BP. Diet- normal Code Status- Full DVT prophylaxis- SQ heparin
--- NOTE | 2017-02-17 13:39 | PN- Infect Dx ---
Subjective Subjective: Afebrile. He feels improved today with decreased pain in the left leg. Objective Last 24 Hrs of Vital Signs/I&O Vital Signs Date Time Temp Pulse Resp B/P B/P Pulse O2 O2 Flow FiO2 Mean Ox Delivery Rate 02/17 603 98.2 75 20 132/68 96 Room Air 02/16 2227 98.3 82 20 124/60 96 02/16 1421 98.2 78 20 130/70 97 Room Air Intake & Output 02/17 1600 02/17 0800 02/17 0000 Intake Total 270 150 Output Total 650 Balance -380 150 Intake, IV 150 150 Intake, Oral 120 Output, Urine 650 Patient 299 lb Weight Physical Exam Other Physical Findings: He appears comfortable in no acute distress Extremities decreased erythema in the left leg, with minimal tenderness; decreased erythema in the left thigh, with no tenderness on palpation Results Last 24 Hours of Lab Results: Laboratory Tests 02/17 610 Hematology CBC w Diff NO MAN DIFF REQ WBC (4.8 - 10.8 /CUMM) 7.4 RBC (4.70 - 6.10 /CUMM) 4.75 Hgb (14.0 - 18.0 G/DL) 15.1 Hct (42 - 52 %) 46.4 MCV (80.0 - 94.0 FL) 97.8 H MCH (27.0 - 31.0 PG) 31.7 H RDW (11.5 - 14.5 %) 14.8 H Plt Count (130 - 400 /CUMM) 143 MPV (7.4 - 10.4 FL) 9.9 Gran % (42.2 - 75.2 %) 62.8 Lymphocytes % (20.5 - 51.1 %) 22.2 Monocytes % (1.7 - 9.3 %) 12.2 H Eosinophils % (0 - 5 %) 2.5 Basophils % (0.0 - 2.0 %) 0.3 Absolute Granulocytes (1.4 - 6.5 /CUMM) 4.7 Absolute Lymphocytes (1.2 - 3.4 /CUMM) 1.7 Absolute Monocytes (0.10 - 0.60 /CUMM) 0.9 H Absolute Eosinophils (0.0 - 0.7 /CUMM) 0.2 Absolute Basophils (0.0 - 0.2 /CUMM) 0 PUBS MCHC (33.0 - 37.0 G/DL) 32.4 L Last 24 Hours of Janes Results: Blood cultures February 14 negative Assessment/Plan Impression: Improving with temperatures and white blood cell count remaining normal and with decreasing erythema of the left leg on Ampicillin Day 4 of treatment for Group G strep sepsis secondary to cellulitis/lymphangitis of the left lower extremity. Suggestion: 1. Elevation of the left leg 2. Continue Ampicillin, but if continues to improve can change to Amoxicillin 1000 mg po every 8 hours to complete a 10-14 day course of antibiotics
[2017-02-17 14:16] VITALS: BP 138/76
[2017-02-17 21:55] VITALS: BP 150/82
[2017-02-18 06:25] VITALS: BP 146/70
--- NOTE | 2017-02-18 06:51 | PN- Housestaff ---
See Addendum Subjective Follow-up For: Left lower extremity cellulitis Chronic non-healing ulcers Subjective: Patient seen and examined at bedside this AM. He was laying comfortably in bed in no acute distress. He reports his pain is slightly improved since yesterday, currently a 5/10 on the pain scale. Patient has been ambulating without issue and is amenable to discharge today. Elliot has a follow up appointment at Dr. Manuel's office on Wednesday. He has compression stockings at home that he will continue to wear along with continued elevation of his lower extremities to prevent swelling. He will continue home daily dressing changes to his ulcers. Review of Systems Constitutional: Denies: chills, diaphoresis, fever. EENTM: Denies: blurred vision, eye pain, hearing changes, nasal congestion. Cardiovascular: Denies: chest pain, palpitations. Respiratory: Denies: cough, short of breath. Gastrointestinal: Denies: abdominal pain, nausea, vomiting. Genitourinary: Denies: dysuria, hematuria. Musculoskeletal: Denies: back pain. Skin: Reports: erythema, lesions. Neurological/Psychological: Denies: confusion, headache. Hematologic/Endocrine: Denies: bleeding. Immunologic/Allergic: Denies: splenectomy. Objective Last 24 Hrs of Vital Signs/I&O Vital Signs Date Time Temp Pulse Resp B/P B/P Pulse O2 O2 Flow FiO2 Mean Ox Delivery Rate 02/18 0625 98.2 73 20 146/70 93 Room Air 02/17 2155 98.8 70 20 150/82 95 Room Air 02/17 1416 98.3 77 20 138/76 96 Intake & Output 02/18 1600 02/18 0800 02/18 0000 Intake Total 100 200 Output Total Balance 100 200 Intake, Oral 100 200 Physical Exam General Appearance: Alert, Oriented X3, Cooperative, No Acute Distress Skin: Left lower extremity erythema improving, regression noted from drawn border. Right medial malleolus ulcer dressed in clean, dry gauze. No seropurulent drainage appreciated. Skin Temp/Moisture Exam: Warm/Dry HEENT: Atraumatic, PERRLA, EOMI, Mucous Membr. moist/pink Neck: Supple, No JVD Lymphatic: Cervical nl Cardiovascular: Regular Rate, Normal S1, Normal S2 Lungs: Clear to Auscultation, Normal Air Movement Abdomen: Normal Bowel Sounds, Soft, No Tenderness, No Masses Neurological: Normal Gait, Normal Speech, Strength at 5/5 X4 Ext, Normal Tone Extremities: No Clubbing, No Cyanosis Vascular: Pulses Symmetrical Current Medications: Current Medications Sig/Phillip Start time Last Medication Dose Route Stop Time Status Admin Acetaminophen 650 MG Q6P PRN / 0245 AC 02/17 PO 0839 Amoxicillin 500 MG Q12 02/18 1000 CAN PO Amoxicillin 1,000 MG Q8 02/18 0600 AC 02/18 PO 0533 Ampicillin 2,000 MG Q6H 02/16 0230 DC 02/17 Sodium Chloride 100 ML IV 02/18 0100 2039 Docusate Sodium 100 MG DAILY NEEDED PRN 02/16 0915 AC 02/16 PO 1038 Furosemide 20 MG DAILY 02/15 1502 AC 02/17 PO 0840 Heparin Sodium 5,000 UNIT Q8 02/14 0600 AC 02/18 (Porcine) SC 0532 Hydromorphone HCl 2 MG Q6P PRN 02/16 1315 DC 02/16 PO 2102 Lactobacillus 1 CAP BID 02/15 2200 AC 02/17 Acidophilus PO 2047 Lorazepam 0.5 MG .STK-MED ONE 02/17 0937 DC PO 02/17 0938 Omeprazole 40 MG DAILY AC 02/15 1110 AC 02/17 PO 0515 Oxycodone/ 1 TAB Q6P PRN 02/16 1330 AC 02/18 Acetaminophen PO 0533 Patient Medication 1 ED .STK-MED ONE 02/17 1346 DC Teaching ED 02/17 1347 Polyethylene Glycol 17 GM DAILY 02/16 1000 AC 02/17 PO 0840 Assessment/Plan Assessment: Mr. Silverman is a 66 year old male with PMH DVT (February 2015, currently off of AC), chronic venous stasis ulcers, venous insufficiency s/p multiple skin grafts, 30 year history of non-healinng right medial malleolus ulcer, right lower extremity stent/vascular ablation, HTN, osteopenia on testosterone injections and obesity who presented to [facility] on 02/14/17 with chief complaint of shaking chills, abdominal discomfort, bilateral lower extremity pain x 2 days. In the ED: Vital signs showed T 101.8, HR 130, R 18, BP 168/74 and O2 saturation of 97% on room air. Labs were significant for: WBC 13.2 (granulocytosis 91.2%), hemoglobin 17.7, MCV 97.8, platelets 208, normal electrolytes and normal renal function. Lactate 1.5 , AST 128, ALT 57. Chest x-ray revealed cardiomegaly with mild prominence pulmonary vascular and lymphatic suspicious for mild congestion. Xray of right tibia and fibula was unremarkable with soft tissue calcification and moderate glenohumeral and small retrocalcaneal spur. Lower extremity Doppler ruled out DVT. Patient is currently admitted to the general medicine floor and the following is the management: 1. Severe sepsis 2/2 left lower extremity cellulitis with chronic venous stasis and chronic non-healing wound of right medial malleolus * On admission, patient febrile, hypotensive to 80/55, WBC 13,000 and source likely left lower extremity cellulitis * Vital signs per protocol, patient hemodynamically stable with no further hypotension or fever * Patient switched to PO amoxicillin 1000 mg Q8 today prior to discharge * XRay negative for bony involvement * ID consult appreciated, suggests completing total 10-14 day course of antibiotics * Continue to elevate left lower leg, OOBTC * Dressing changes to continue even after discharge * Continue home lasix to prevent fluid overload * Pain control with percocet; provide miralax, senna and colace PRN to prevent constipation 2. GERD, epigastric discomfort * Noted severe heartburn with epigastric discomfort on admission * CT scan noted gallstones (done at [facility]) without cholecystitis * Monitor for transaminitis * GI evaluation in the future once current infection resolved * Continue close clinical monitoring * Patient no longer wants PPI, will have him follow up with PCP for monitoring GERD like symptoms 3. Renal abnormality * CT scan abdomen showed 1.9 cm upper pole renal hypodensity ? renal mass, no acute obstruction identified * Outpatient follow up for this issue 4. Elevated blood glucose * HgA1C elevated to 6.2 * HgA1C on this admission 5.8 * Recommend healthy lift choices, increased activity, low carb diet 5. Osteopenia * History of osteopenia on testosterone injections * Continue as an outpatient 6. History of DVT * Patient has previous history of DVT, has previously been on xarelto * Currently off AC * Lower extremity doppler ruled out current DVT FULL CODE DVTP: Heparin SC Regular diet Problem List: 1. Leg edema 2. Lower extremity ulceration 3. Peripheral vascular disease 4. Cellulitis of left lower extremity 5. Sepsis Pain Ratin Pain Location: LLE Pain Goal: Pain 4 or less Pain Plan: Percocet PRN for moderate pain Tomorrow's Labs & Rationales: None, discharge today.
[2017-02-18] MEDS ORDERED: AMOXICILLIN500 M2 PO ×2 (06:59→09:32)
--- NOTE | 2017-02-18 07:01 | Patient Discharge Instructions ---
Discharge Instructions General Discharge Information You were seen/treated for: Left lower extremity cellulitis Daily wet to dry dressings: Yes Special Instructions: Please follow up with your PCP Dr. Bee MD within 7 days of discharge for continued care. Please follow up at the wound center with Dr. Manuel within 7 days of discharge for continued care and monitoring of your cellulitis. Continue antibiotics and continue left lower extremity elevation. Please return if worsening redness, swelling or pain of the left lower extremity. Continue compression bandages/stockings to both lower extremities. Diet Recommended Diet: Heart Healthy Acute Coronary Syndrome Inclusion Criteria At DC or during hospital stay patient has or had the following: ACS DIAGNOSIS No Discharge Core Measures Meds if any: Prescribed or Continued at Discharge Meds if any: NOT Prescribed or Continued at Discharge Congestive Heart Failure Inclusion Criteria At DC or during hospital stay patient has or had the following: CHF DIAGNOSIS No Discharge Core Measures Meds if any: Prescribed or Continued at Discharge Meds if any: NOT Prescribed or Continued at Discharge Cerebrovascular accident Inclusion Criteria At DC or during hospital stay patient has or had the following: CVA/TIA Diagnosis No Discharge Core Measures Meds if any: Prescribed or Continued at Discharge Meds if any: NOT Prescribed or Continued at Discharge Venous thromboembolism Inclusion Criteria VTE Diagnosis No VTE Type NONE VTE Confirmed by (Test) NONE Discharge Core Measures - Per Current guidelines, there needs to be overlap - treatment for the first 5 days of Warfarin therapy. - If discharged on Warfarin prior to 5 days of - overlap therapy, the patient will need to be - assessed for post discharge needs including - *Post discharge parental anticoagulation - *Warfarin and/or parental anticoagulation education - *Follow up date to check INR post discharge At least 5 days overlap therapy as Inpatient No Meds if any: Prescribed or Continued at Discharge Note: Overlap Therapy is Warfarin and Anticoagulant Meds if any: NOT Prescribed or Continued at Discharge
[2017-02-18] MEDS ORDERED: PROBIOTIC & AC1 EACH PO ×2 (07:52→09:32)
--- NOTE | 2017-02-18 07:55 | PN- Student ---
Subjective Subjective: This morning Mr. Silverman feels well. He reports some persistent soreness of the left lower extemity of 5-6/10. He says it feels stiff and sore more in the morning. He has been ambulating well on it and feels like he's ready to go home. He feels that his swelling has decreased quite a bit and that the redness and receded. He also reports that the soreness is now just localized to the left calf and nieves area and no longer extends up his leg to his thigh. He denies any headaches, fever, chills, abdominal pain, N/V/D, chest pain, palpitations, breathing difficulty, cough, dysuria, or change in bowel habits. Objective Objective: Vital Signs Date Time Temp Pulse Resp B/P B/P Pulse O2 O2 Flow FiO2 Mean Ox Delivery Rate 02/18 0625 98.2 73 20 146/70 93 Room Air 02/17 2155 98.8 70 20 150/82 95 Room Air 02/17 1416 98.3 77 20 138/76 96 Intake & Output 02/18 0800 02/18 0000 02/17 1600 Intake Total 360 825 6735 Output Total Balance 809 165 9937 Intake, IV 200 Intake, Oral 100 200 800 Number 1 Bowel Movements Patient 299 lb Weight Diagnostics on admission: CT from [facility]- cholelithiasis with no cholecysitis, bilateral non obstructing renal calculi, 1.9cm focal low attenuated area with internal heterogeneous density within left kidney upper lobe, further evaluation with CT/ MRI renal mass protocol is recommended to rule out renal neoplasm. Enlarged left inguinal lymph node with surrounding fat infiltration, suspicious for infective lymphadenitis, small hiatal hernia. UA- unremarkable CXR- cardiomegaly, mild pulmonary vascular and lymphatic prominence possibly due to mild congestion. X-Ray of Tib/Fib- soft tissue calcification and retrocalcaneal spur Venous doppler- negative for DVT PE: General- no acute distress, well nourished man, AAO x 3, cooperative. HEENT- atruamatic, PERRLA, membranes moist and pink Neck- supple, no lymphadenopathy or thyromegaly, trachea is midline CV- S1 and S2 heard, regular rate and rhythm, no murmurs or rubs auscultated Chest- equal rise bilaterally, vesicular sounds heard throughout, no distress Abd- not distended, bowel sounds heard, soft and non tender to palpation Skin- erythematous swelling noted on left leg from foot to knee, outlined with marker for progress assessment. erythema and soreness has regressed further back inside marked border and wrinkling is present on left lower extremity. 3cm x 3 cm wound noted on left foot has scabbed over well. Right leg was not erythematous or swollen. 1cm x 1 cm wound bandaged on right medial foot was bandaged and healing well. Upper medial thigh lymphangitis has resolved. Ext- 5/5 strength x 4 extremities, motor and sensation grossly intact. Results Results: Laboratory Tests 02/17/17 0610: CBC w Diff NO MAN DIFF REQ, RBC 4.75, MCV 97.8 H, MCH 31.7 H, RDW 14.8 H, MPV 9.9, Gran % 62.8, Lymphocytes % 22.2, Monocytes % 12.2 H, Eosinophils % 2.5, Basophils % 0.3, Absolute Granulocytes 4.7, Absolute Lymphocytes 1.7, Absolute Monocytes 0.9 H, Absolute Eosinophils 0.2, Absolute Basophils 0, PUBS MCHC 32.4 L 02/16/17 0635: CBC w Diff NO MAN DIFF REQ, RBC 5.03, MCV 97.5 H, MCH 31.7 H, RDW 14.9 H, MPV 10.2, Gran % 83.2 H, Lymphocytes % 8.6 L, Monocytes % 7.9, Eosinophils % 0.2, Basophils % 0.1, Absolute Granulocytes 8.8 H, Absolute Lymphocytes 0.9 L, Absolute Monocytes 0.8 H, Absolute Eosinophils 0, Absolute Basophils 0, PUBS MCHC 32.5 L Assessment/Plan Assessment: Mr. Silverman is a 66 yo white male with a PMH of HTN, chronic venous stasis w/ ulcers (s/p multiple skin grafts), Lower extremity DVT (was on xarelto), osteopenia (testosterone depot injections), and obesity. He has also had vascular stent in right lower extremity and venous ablation in the past. He presented to the ED on 02/13/2017 with shaking chills, abdominal pain, and bilateral lower extremity pain for 2 days duration. Also had sores on both medial feet, 1cm x 1cm on the right foot and 3cm x 3cm on left foot, as well as erythema of the left leg from ankle to toe. On admission his vitals were: temp- 101.8, HR- 118, RR- 20, BP- 110/74, SpO2- 96% on room air. Labs significant for: WBC- 13.2 with left shift, H/H- 17.7/54.5, MCV- 99.8, Lactic acid- 1.5, anion gap- 12, amylase-54, lipase- 184, INR- 1.08, BUN- 18, Warp Doffer- 1.1 -patient was treated in ED with saline bolus, protonix 40mg IV, toradol 30 mg IV , Unasyn 3000mg IV and tylenol 1000mg IV -blood cultures grew gram-positive cocci in chains- beta strep on admission but repeat cultures show now growth after one day. -Abdominal CT:cholelithiasis with no cholecysitis, bilateral non obstructing renal calculi, 1.9cm focal low attenuated area with internal heterogeneous density within left kidney upper lobe, further evaluation with CT/MRI renal mass protocol is recommended to rule out renal neoplasm. Enlarged left inguinal lymph node with surrounding fat infiltration, suspicious for infective lymphadenitis, small hiatal hernia. Today the cellulitis shows some marked improvement. The erythema and soreness has receded further inside the marked border, lymphangitis has resolved, and swelling has decreased even more as shown by the wrinkling of the skin of the left lower leg. He reports his pain as 5-6/10 but said that due to his chronic venous stasis he always has a little pain in his legs. He feels like hes ready to go home and he ambulates with no problems. Vitals today are temp- 98.2, HR-73 , RR-20, BP- 146/70, SpO2- 93% on room air. Current Medications Sig/Phillip Start time Last Medication Dose Route Stop Time Status Admin Acetaminophen 650 MG .STK-MED ONE 02/17 0757 DC PO 02/17 0758 Acetaminophen 650 MG Q6P PRN 02/14 0245 AC 02/17 PO 0839 Amoxicillin 500 MG Q12 02/18 1000 CAN PO Amoxicillin 1,000 MG Q8 02/18 0600 AC 02/18 PO 0533 Ampicillin 2,000 MG Q6H 02/16 0230 DC 02/17 Sodium Chloride 100 ML IV 02/18 Docusate Sodium 100 MG DAILY NEEDED PRN 02/16 0915 AC 02/16 PO 1038 Furosemide 20 MG DAILY 02/15 1502 AC 02/17 PO 0840 Heparin Sodium 5,000 UNIT Q8 02/14 0600 AC 02/18 (Porcine) SC 0532 Hydromorphone HCl 2 MG Q6P PRN 02/16 1315 DC 02/16 PO 2102 Lactobacillus 1 CAP BID 02/15 2200 AC 02/17 Acidophilus PO 2047 Lorazepam 0.5 MG .STK-MED ONE 02/17 0937 DC PO 02/17 0938 Omeprazole 40 MG DAILY AC 02/15 1110 AC 02/17 PO 0515 Oxycodone/ 1 TAB Q6P PRN 02/16 1330 AC 02/18 Acetaminophen PO 0533 Patient Medication 1 ED .STK-MED ONE 02/17 1346 CO Teaching ED 02/17 1347 Polyethylene Glycol 17 GM DAILY 02/16 1000 AC 02/17 PO 0840 Plan: Patient feeling well. Cellulitis continuing to improve and lymphangitis has resolved. Expected discharge today. Problem List: 1. Cellulitis of left lower extremity- -continue to treat pain with tylenol and percocet 1 tab Q4 PRN, discontinued dilaudid 2mg Q6 PRN, patient also on colace and miralax as per bowel regimen. -continue ampicillin PO for 10 more days after discharge to finish 14 day course (day 5) as per ID- blood cultures showed gram-positive cocci in chains- beta hemolytic strep (also on lactobacillus) -monitor labs and marked border for improvement (last WBC was 7.4) -continue to elevate leg to allow for improved venous return 2. Sepsis with leukocytosis- -continue to monitor vitals and labs -follow ID note -tylenol for fever and headaches -stopped IV fluid -continue antibiotics as above 3. Chronic venous stasis w/ ulcers- -doppler negative for DVT -continue wound protocol for ulcers -continue antibiotics and elevation as above -ambulate as tolerated to assist venous return -has follow up appointment with Dr. Manuel next wednesday 4. Abdominal pain- -patient stopped taking omeprazole due to headaches. will discontinue for now and instruct patient to use an OTC H2 kirk for any reflux in the future. -pain has resolved for now, currently taking pain medications for cellulitis. -CT showed cholelithiasis, and 1.9 cm mass on left kidney upper lobe (will need outpatient follow up), and small hiatal hernia. 5. HTN- -Continue lasix 20 mg PO daily and monitor BP. Diet- normal Code Status- Full DVT prophylaxis- SQ heparin
[2017-02-18] MEDS ORDERED: PERCOCET 5-3251 EACH PO ×2 (07:57→09:32)
--- NOTE | 2017-02-18 09:33 | Discharge Summary ---
Visit Information Visit Dates Admission Date: 02/14/17 Discharge Date: 02/18/17 Hospital Course Course Attending Physician: KRISTA DEXTER MD Primary Care Physician: BEE ESCOBEDO,QUINTIN Camacho Consulting Request: 1 Consulting Specialty: Infectious Disease Consulting Physician: Dr. Brenda MD Reason for Consult: Cellulitis Consulting Request: 2 Consulting Specialty: Thoracic/Vascular Surgery Consulting Physician: Dr. Breanna MD Reason for Consult: Chronic venous insufficiency with chronic ulcerations Hospital Course: Mr. Silverman is a 66 year old male with PMH DVT (February 2015, currently off of AC), chronic medial malleolus ulcers due to chronic venous hypertension, chronic venous insufficiency s/p multiple skin grafts, right lower extremity stent/vascular ablation, HTN, osteopenia on testosterone injections and obesity who presented to [facility] on 02/14/17 with chief complaint of shaking chills, abdominal discomfort and bilateral lower extremity pain x 2 days. In the ED: Vital signs showed T 101.8, HR 130, R 18, BP 168/74 and O2 saturation of 97% on room air. Physical exam showed: General Appearance- Alert, Oriented X3, Cooperative, no lymphadenopathy Skin- No Rashes, No Breakdown Skin Temp/Moisture Exam- Warm/Dry Sepsis Skin Exam (color)- Normal for Ethnicity, Cyanotic HEENT- Atraumatic, PERRLA, EOMI Neck- Supple, No JVD, No thryomegaly Lymphatic- Cervical nl Cardiovascular- Regular Rate, Normal S1, Normal S2, No Murmurs Lungs- Normal Air Movement Abdomen- Normal Bowel Sounds, Soft, No Tenderness Neurological- Normal Gait, Normal Speech, Strength at 5/5 X4 Ext, Normal Tone Extremities- No Cyanosis, erythema extending from the ankle up to the knee on the left leg small ulcer 1cm x 1cm on the medial aspect of left foot ulcer on the medial aspect of right foot 3cm x 3 cm. Ulcers are not assoicated w/ any purulent discharge. Tenderness of the left lower extremity. Vascular- Pulses Symmetrical Sepsis Peripheral Pulse Location- Dorsalis Pedis Sepsis Peripheral Pulse Exam- Normal Sepsis Cap Refill Exam- <2 Sec Labs were significant for: WBC 13.2 (granulocytosis 91.2%), hemoglobin 17.7, MCV 97.8, platelets 208, normal electrolytes and normal renal function. Lactate 1.5 , AST 128, ALT 57. Chest x-ray revealed cardiomegaly with mild prominence pulmonary vascular and lymphatic suspicious for mild congestion. Xray of right tibia and fibula was unremarkable with soft tissue calcification and moderate glenohumeral and small retrocalcaneal spur. Lower extremity Doppler ruled out DVT. Patient was admitted to the general medicine floor and the following was the management: 1. Severe sepsis 2/2 left lower extremity cellulitis with chronic venous stasis and chronic non-healing wound of right medial malleolus: On admission, Elliot was febrile, hypotensive to 80/55 (improved with normal saline), WBC 13,000 and source likely left lower extremity cellulitis. He was initiated on ceftazadime. Previous cultures have grown Pseudomonas, MSSA and serratia. ID consult was obtained after admission with Dr. Brenda MD along with the vascular surgeon Dr. Breanna MD. Wound consult also placed. Blood cultures showedd gram positive cocci in clusters and thus antibiotic coverage was switched to IV unasyn. Doppler of left lower extremity to rule out DVT was performed and it was negative for DVT. As final culture results returned showing Group G strep, patient was switched from IV unasyn to IV ampicillin 2 g IV Q6H per ID recommendations. Elliot improved clinically with resolution of his leukocytosis and no further fevers/hypotensive episodes. Patient was instructed to continue to elevate his leg as much as possible and lasix was continued to prevent fluid overload and worsening of cellulitis. Patient was ultimately transitioned to PO amoxicillin to complete a 14 day course of antibiotic therapy. He is scheduled to follow up with both his PCP and his Vascular surgeon Dr. Kaleb MD within 7 days of discharge. He was instructed to complete antibiotic course, continue elevation and to wear compression stockings. 2. Epigastric discomfort: Patient noted heartburn/epigastric discomfort on admission. CT scan noted gallstones without cholecystitis. Patient was started on an oral PPI with improvement of his symptoms. Symptoms completely resolved by last day of admission and patient no longer wished to take oral PPIs. Patient should follow up with PCP who can monitor these symptoms and if they return, please consider referral to a GI specialist. 3. Renal abnormality: CT abdomen/pelvis CT scan done at [facility] prior to admission showed a left kidney upper pole density. Due to these findings, patient should follow up with his PCP who can monitor this and consider further workup. 4. Osteopenia: Patient has history of osteopenia on testosterone injections. He should continue this as an outpatient. 5. History of DVT: Elliot has a previous history of DVT and was previously on Xarelto for this issue. He is currently off of anticoagulation. Lower extremity doppler was performed and found to be negative for DVT. 6. Code: FULL 7. DVT Prophylaxis: SC Heparin 8. Diet: Regular Complications: None. Allergies: Coded Allergies: bacitracin (Severe, HIVES 02/13/17) ceftriaxone (From ROCEPHIN) (Severe, HIVES 02/13/17) doxycycline (Severe, HIVES 02/13/17) erythromycin base (Severe, HIVES 02/13/17) gentamicin (Severe, HIVES 02/13/17) Uncoded Allergies: MEDS WHICH ENDS WITH "BASILIO" (Severe, HIVES 03/02/11) DETERGENTS (RASH 05/31/14) Significant Procedures: Chest/Tibia/Fibula/Ankle XRay: IMPRESSION: Cardiomegaly with mild prominence of pulmonary vascularity suspicious for mild congestion. Unremarkable right tibia and fibula. Soft tissue calcification probably from underlying varicose veins. Moderate calcaneal heel and a small retrocalcaneal spur. Venous Doppler Study: IMPRESSION: No evidence of deep venous thrombosis involving the lower extremities. Foot XRay: IMPRESSION: Limited exam. Mild diffuse soft tissue swelling of the left foot without definite evidence of soft tissue air or periosteal reaction. Disposition Summary Disposition Principal Diagnosis: Severe sepsis due to left lower extremity cellulitis Additional Diagnosis: Chronic venous insufficiency Bilateral medial malleolar ulcers due to chronic venous HTN Prior DVT off of anticoagulation Osteopenia Discharge Disposition: home or self care Discharge Instructions General Discharge Information Code Status: Full Code Patient's Diet: Regular diet. Patient's Activity: Self-limited, as tolerated, keep LLE elevated. Follow-Up Instructions/Appts: Please follow up with your PCP Dr. Bee MD within 7 days of discharge for continued care. Please follow up at the wound center with Dr. Manuel within 7 days of discharge for continued care and monitoring of your cellulitis. Continue antibiotics and continue left lower extremity elevation. Please return if worsening redness, swelling or pain of the left lower extremity. Continue compression bandages/stockings to both lower extremities. Medications at Discharge Discharge Medications: Continue taking these medications: Furosemide (Furosemide) 20 MG TABLET 1 Tablet ORAL DAILY Days = 90 Comments: Last Taken: 02/18/17 Time: 9AM Potassium Chloride (Klor-Con M10) 10 MEQ TAB.ER.PRT 1 Tablet ORAL DAILY Days = 60 Comments: NOT GIVEN WHILE IN HOSPITAL Testosterone Cypionate (Testosterone Cypionate) 200 MG/ML VIAL 1 Milliliters INTRAMUSC EVERY 3 WEEKS Qty = 4 Comments: NOT GIVEN WHILE IN HOSPITAL Start taking the following new medications: Lactobac Cmb #3/Fos/Pantethine (Probiotic & Acidophilus Cap) 300MM-250 CAPSULE 1 Capsule ORAL TWICE DAILY Qty = 60 No Refills Instructions: . Comments: Last Taken: 02/18/17 Time: 9AM Oxycodone HCl/Acetaminophen (Percocet 5-325 MG Tablet) 5 MG-325 MG TABLET 1 Tablet ORAL EVERY SIX HOURS NEEDED as needed for Moderate to severe pain Qty = 10 No Refills Instructions: . Comments: Last Taken: 02/18/17 Time: 6AM Amoxicillin (Amoxicillin) 500 MG CAPSULE 1,000 Milligram ORAL EVERY 8 HOURS Qty = 30 No Refills Instructions: . Comments: Last Taken: 02/18/17 Time: 6AM Copies To: BRENDA ESCOBEDO,ROSIBEL Webster; KALEB ESCOBEDO,ARIAN Toth MD Review Statement Documenting Attending: PATTI ESCOBEDO,BALJIT
== END 2017-02-18 12:06 | DRG 872 ==
LOC: ERH 19:36 → 2NA 02-14 01:16 → ERHI 02-14 01:16 → 2NA 02-14 01:16 → ENRESERV 02-14 02:43 → 2NB 02-14 04:17 → 2NA 02-15 14:51 → ENPENDDIS 02-18 10:09 → 2NA 02-18 12:06
PROVIDERS: Emergency Medicine; Internal Medicine Infectious Disease; Student in an Organized Health Care Education/Training Program; ADMIT Student in an Organized Health Care Education/Training Program
DX: A40.8 Other streptococcal sepsis (principal); L97.319 Non-pressure chronic ulcer of right ankle with unspecified severity; L97.329 Non-pressure chronic ulcer of left ankle with unspecified severity; E66.01 Morbid (severe) obesity due to excess calories; I10 Essential (primary) hypertension; L03.116 Cellulitis of left lower limb; I87.2 Venous insufficiency (chronic) (peripheral); Z86.718 Personal history of other venous thrombosis and embolism; Z68.35 Body mass index [BMI] 35.0-35.9, adult; I87.303 Chronic venous hypertension (idiopathic) without complications of bilateral lower extremity; M85.80 Other specified disorders of bone density and structure, unspecified site; I87.8 Other specified disorders of veins; K80.20 Calculus of gallbladder without cholecystitis without obstruction
CPT/HCPCS: 2NAP; 36415; 73590-RT; 73600-RT; 73630-LT; 81003; 82436; 87040; 87086; 87147; 93005; 93010; 93970; J0131; J0290; J0690; J0713; J1644; J1885

== ENCOUNTER 2017-02-27 11:26 | Emergency (ER) | payer OTHER ==
[~2017-02-27] VITALS: Ht 195.6 cm; Wt 136.1 kg
[~2017-02-27 11:26] MED LIST changes: +AMOXICILLIN500 M2 PO; +PERCOCET 5-3251 EACH PO; +PROBIOTIC & AC1 EACH PO; +TESTOSTERO200 MG/1 M IM
--- NOTE | 2017-02-27 12:33 | ED UPPER/LOWER EXTREMITY COMPL ---
History of Present Illness General Chief Complaint: Lower Extremity Problems Stated Complaint: LFT LEG CELLULITIS Source: patient, family, old records Exam Limitations: no limitations Vital Signs & Intake/Output Vital Signs & Intake/Output Vital Signs Date Time Temp Pulse Resp B/P B/P Pulse O2 O2 Flow FiO2 Mean Ox Delivery Rate 02/27 1338 96.2 62 18 148/83 96 Room Air 02/27 1130 97.5 82 18 144/91 97 Room Air Room Air Allergies Coded Allergies: bacitracin (Severe, HIVES 02/13/17) ceftriaxone (From ROCEPHIN) (Severe, HIVES 02/13/17) doxycycline (Severe, HIVES 02/13/17) erythromycin base (Severe, HIVES 02/13/17) gentamicin (Severe, HIVES 02/13/17) Uncoded Allergies: MEDS WHICH ENDS WITH "BASILIO" (Severe, HIVES 03/02/11) DETERGENTS (RASH 05/31/14) Reconcile Medications Amoxicillin 500 MG CAPSULE 1,000 MG PO Q8 Cellulitis . Clindamycin HCl 300 MG CAPSULE 1 CAP PO TID CELLULITIS Furosemide 20 MG TABLET 1 TAB PO DAILY fluid overload (Reported) Lactobac Cmb #3/Fos/Pantethine (Probiotic & Acidophilus Cap) 300MM-250 CAPSULE 1 CAP PO BID Supplement . Oxycodone HCl/Acetaminophen (Percocet 5-325 MG Tablet) 5 MG-325 MG TABLET 1 TAB PO Q6P PRN Moderate to severe pain . Potassium Chloride (Klor-Con M10) 10 MEQ TAB.ER.PRT 1 TAB PO DAILY supplements (Reported) Testosterone Cypionate 200 MG/ML VIAL 1 ML IM Q 3 WEEKS HRT (Reported) Triage Note: TRIAGE: 66 Y/O MALE PRESENTS C/O ?"CELLULITIS" TO THE LEFT LOWER EXTREMITY X DAYS. REPORTS THAT HIS PCP SENT HIM TO THE ED TO DETERMINE WHETHER OR NOT HE WOULD REQUIRE IV ANTIBIOTICS. PREVIOUSLY HAD HOME IV ABX. "ANY TIME THEY GIVE ME ORAL ANTIBIOTICS IT JUST DOESN'T SEEM TO WORK BECAUSE OF PAIN ISSUES." Triage Nurses Notes Reviewed? yes HPI: 66M RECENT ADMISSION FOR SEVERE SEPSIS SECONDARY TO LLE CELLULITIS WITH HISTORY OF CULTURES POSITIVE FOR MSSA AND PSEUDOMONAS. WAS TREATED WITH [facility]N INPATIENT WITH RAPID IMPROVEMENT AND DISCHARGED ON AMOXICILLIN. PATIENT REPORTS NO IMPROVEMENT IN HIS LLE CELLULITIS SINCE DISCHARGE, AND INDURATION AND ERYTHEMA OF HIS CALF PERSIST. HE DENIES SYSTEMIC SYMPTOMS. HE DOES REPORT LEFT CALF PAIN. Past History Travel History Traveled to [place] past 21 day No Medical History Any Pertinent Medical History? 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 No Review of Systems Review of Systems Constitutional: Reports: no symptoms. EENTM: Reports: no symptoms. Respiratory: Reports: no symptoms. Cardiovascular: Reports: no symptoms. Gastrointestinal/Abdominal: Reports: no symptoms. Genitourinary: Reports: no symptoms. Musculoskeletal: Reports: see HPI. Skin: Reports: see HPI. Neurological/Psychological: Reports: no symptoms. Hematologic/Endocrine: Reports: no symptoms. Immunological: Reports: no symptoms. All Other Systems: Reviewed and Negative Physical Exam Physical Exam General Appearance: well developed/nourished, no apparent distress, alert, awake , comfortable Head: atraumatic, normal appearance Eyes: Bilateral: normal appearance. Ears, Nose, Throat: normal pharynx, normal ENT inspection Neck: normal inspection, supple Cardiovascular/Respiratory: normal breath sounds, regular rate/rhythm Back: normal inspection, normal range of motion Leg Left: swelling, tenderness, assymetry, pain, ERYTHEMA Leg Right: normal range of motion, normal inspection Progress Differential Diagnosis: arterial insufficiency, cellulitis, CHF, compartment syndrome, contusion, dislocation, DVT, fracture, gout, septic arthritis, sprain, tendon injury Plan of Care: Orders Procedure Date/time Status CBC WITHOUT DIFFERENTIAL 02/27 1229 Complete Laboratory Tests 02/27/17 1253: CBC w Diff NO MAN DIFF REQ, RBC 5.14, MCV 96.5 H, MCH 31.7 H, RDW 14.3, MPV 8.1, Gran % 60.1, Lymphocytes % 26.6, Monocytes % 10.7 H, Eosinophils % 2.3, Basophils % 0.3, Absolute Granulocytes 3.7, Absolute Lymphocytes 1.6, Absolute Monocytes 0.7 H, Absolute Eosinophils 0.1, Absolute Basophils 0, PUBS MCHC 32.8 L WILL OBTAIN LE DOPPLER TO RULE OUT DVT. LACK OF IMPROVEMENT WITH AMOXICILLIN. WILL SWITCH TO CLINDAMYCIN, PATIENT WILL FOLLOW UP WITH DR. WOLFE OF VASCULAR SURGERY ON February, INSTRUCTED TO RETURN TO ED IF SYSTEMIC SYMPTOMS OR WORSENING OF CELLULITIS. LE DOPPLER NEGATIVE FOR DVT. (CHARMAINE ESCOBEDO,TAYLOR) Diagnostic Imaging: Viewed by Me: Ultrasound. Discussed w/RAD: Ultrasound. Radiology Impression: PATIENT: MATHEW SUH PRESENT AGE: 66 PATIENT ACCOUNT NO: [id number] : 51 LOCATION: [facility] ORDERING PHYSICIAN: TAYLOR MONTANO MD SERVICE DATE: 02/27/17 EXAM TYPE: US - US -UNILATERAL VENOUS DOPPLER EXAMINATION: US TRIPLEX LOWER EXTREMITY, LEFT CLINICAL INFORMATION: Left lower extremity pain, swelling and induration. COMPARISON: Prior lower extremity ultrasound examinations, most recently 2016. TECHNIQUE: Color-flow triplex imaging with spectral analysis and compression Doppler were performed on the lower extremity. FINDINGS: Respiratory variation, normal compression and augmented flow are noted throughout the left lower extremity. The visualized common femoral vein, proximal greater saphenous vein, femoral vein, profunda femoral vein, popliteal vein and visualized mid calf venous segments show no evidence of deep venous thrombosis. There is no Baron's cyst. IMPRESSION: Normal triplex scan without evidence of deep venous thrombosis involving the lower extremity. Departure Departure Time of Disposition: 1336 Disposition: HOME OR SELF CARE Condition: Stable Clinical Impression Primary Impression: Cellulitis of left lower extremity Secondary Impressions: Failure of outpatient treatment Referrals: MARK ESCOBEDO,QUINTIN Camacho (PCP/Family) Additional Instructions: FOLLOW UP WITH DR. WOLFE OF VASCULAR SURGERY. STOP TAKING YOUR AUGMENTIN. START TAKING CLINDAMYCIN FOR 10 DAYS. IF YOU EXPERIENCE SEVERE DIARRHEA CALL YOUR DOCTOR. RETURN TO ED IF FEVER, CHILLS, NAUSEA, VOMITING OR WORSENING OF CELLULITIS Departure Forms: Customer Survey General Discharge Information Prescriptions: Current Visit Scripts Clindamycin HCl 1 CAP PO TID #30 CAP
[2017-02-27 13:02] LABS: ABSOLUTE BASOPHIL COUNT 0 /CUMM (0.0-0.2); ABSOLUTE EOSINOPHIL COUNT 0.1 /CUMM (0.0-0.7); ABSOLUTE GRANULOCYTE CT 3.7 /CUMM (1.4-6.5); ABSOLUTE LYMPH COUNT 1.6 /CUMM (1.2-3.4); ABSOLUTE MONOCYTE COUNT 0.7 /CUMM (0.10-0.60); BASOPHIL % 0.3 % (0.0-2.0); EOSINOPHIL % 2.3 % (0-5); GRANULOCYTE % 60.1 % (42.2-75.2); HEMATOCRIT 49.6 % (42-52); MEAN CORPUSCULAR HGB 31.7 PG (27.0-31.0); MEAN CORPUSCULAR HGB CONC 32.8 G/DL (33.0-37.0); MEAN CORPUSCULAR VOLUME 96.5 FL (80.0-94.0); MEAN PLATELET VOLUME 8.1 FL (7.4-10.4); PLATELET COUNT 331 /CUMM (130-400); RBC DISTRIBUTION WIDTH 14.3 % (11.5-14.5); RED BLOOD CELL CT 5.14 /CUMM (4.70-6.10); WHITE BLOOD CELL COUNT 6.1 /CUMM (4.8-10.8)
--- NOTE | 2017-02-27 13:28 | ULTRASOUND REPORT ---
EXAMINATION: US TRIPLEX LOWER EXTREMITY, LEFT CLINICAL INFORMATION: Left lower extremity pain, swelling and induration. COMPARISON: Prior lower extremity ultrasound examinations, most recently 02/14/2017. TECHNIQUE: Color-flow triplex imaging with spectral analysis and compression Doppler were performed on the lower extremity. FINDINGS: Respiratory variation, normal compression and augmented flow are noted throughout the left lower extremity. The visualized common femoral vein, proximal greater saphenous vein, femoral vein, profunda femoral vein, popliteal vein and visualized mid calf venous segments show no evidence of deep venous thrombosis. There is no Baron's cyst. IMPRESSION: Normal triplex scan without evidence of deep venous thrombosis involving the lower extremity.
[2017-02-27 13:38] VITALS: BP 148/83
[2017-02-27] MEDS ORDERED: CLINDAMYCIN HC300 M1 PO (13:38)
== END 2017-02-27 13:47 ==
LOC: ERH 11:26
PROVIDERS: Internal Medicine
DX: L03.116 Cellulitis of left lower limb (principal)

== ENCOUNTER 2017-10-31 02:14 | Inpatient (IN) | payer OTHER ==
[~2017-10-31] VITALS: Ht 193 cm; Wt 145.2 kg
[~2017-10-31 02:14] MED LIST changes: +CLINDAMYCIN HC300 M1 PO
[2017-10-31] MEDS ORDERED: IBUPROFEN800 M1 PO (03:25)
--- NOTE | 2017-10-31 03:46 | ED INFLUENZA/URI COMPLAINT ---
History of Present Illness General Chief Complaint: General Adult Stated Complaint: ULCER ON BILATERAL LEGS/FEVER Source: patient, family Exam Limitations: poor historian Vital Signs & Intake/Output Vital Signs & Intake/Output ED Intake and Output 11/05 0000 11/04 1200 Intake Total 435 Output Total 825 Balance -390 Intake, IV 75 Intake, Oral 360 Output, Urine 825 Allergies Coded Allergies: bacitracin (Severe, HIVES 02/13/17) ceftriaxone (From ROCEPHIN) (Severe, HIVES 02/13/17) doxycycline (Severe, HIVES 02/13/17) erythromycin base (Severe, HIVES 02/13/17) gentamicin (Severe, HIVES 02/13/17) Uncoded Allergies: MEDS WHICH ENDS WITH "BASILIO" (Severe, HIVES 03/02/11) DETERGENTS (RASH 05/31/14) Reconcile Medications Cephalexin (Keflex) 500 MG CAPSULE 2 CAP PO TID soft tissue infection Furosemide 20 MG TABLET 1 TAB PO DAILY fluid overload (Reported) Ibuprofen 800 MG TABLET 1 TAB PO TID PAIN CONTROL (Reported) Lactobac Cmb #3/Fos/Pantethine (Probiotic & Acidophilus Cap) 300MM-250 CAPSULE 1 CAP PO BID Supplement . Potassium Chloride (Klor-Con M10) 10 MEQ TAB.ER.PRT 1 TAB PO DAILY supplements (Reported) Testosterone Cypionate 200 MG/ML VIAL 1 ML IM Q 3 WEEKS HRT (Reported) Triage Note: PT FROM HOME C/O FEVER SECONDARY TO ULCERS BILATERAL LOWER EXT. PT ARRIVED A&0X3, FEBRILE ON ARRIVAL. Triage Nurses Notes Reviewed? yes HPI: Patient presents for evaluation of a rather sudden onset of fever and shaking chills tonight. Patient has chronic lower extremity wounds that have been cared for by the [facility] wound care center. He has had infections associated with these chronic ulcers in the past. He denies any associated chest pain, cough, phlegm production, abdominal pain or cold symptoms. Past History Travel History Traveled to [place] past 21 day No Medical History Any Pertinent Medical History? 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 No Review of Systems Review of Systems Constitutional: Reports: see HPI. EENTM: Reports: no symptoms. Respiratory: Reports: no symptoms. Cardiovascular: Reports: no symptoms. GI: Reports: no symptoms. Genitourinary: Reports: no symptoms. Musculoskeletal: Reports: no symptoms. Skin: Reports: see HPI. Neurological/Psychological: Reports: no symptoms. Hematologic/Endocrine: Reports: no symptoms. Immunologic/Allergic: Reports: no symptoms. All Other Systems: Reviewed and Negative Physical Exam Physical Exam Ears, Nose, Throat: SEE BELOW Comments: Gen.: Well-nourished, well-developed, no acute respiratory distress. Head: Normocephalic, atraumatic. Eyes: Normal inspection bilaterally Ears: Normal inspection bilaterally Nose: Normal inspection Throat/mouth : Moist mucosa Neck: Supple, full range of motion, no goiter Heart: Regular rate and rhythm, no murmurs rubs or gallops Lungs: Clear to auscultation bilaterally with normal air entry Chest: Nontender Back: Normal range of motion Abdomen: Soft, nontender, nondistended, normal bowel sounds Extremities: Normal range of motion grossly, equal radial pulses, bilateral lower extremity pitting edema with dressings, mild diffuse bilateral warmth and erythema of the lower extremities Neurologic: Cranial nerves grossly intact, speech is clear Skin: warm and dry Psychiatric: Calm, cooperative, no apparent delusions or hallucinations Core Measures Sepsis Present: No Sepsis Focused Exam Completed? No Progress Differential Diagnosis: influenza, pneumonia, URINARY TRACT INFECTION, CELLULITIS Plan of Care: Orders Procedure Date/time Status Discharge Patient 11/04 UNK Active Nursing Misc 11/04 UNK Active Diagnostic Imaging: Discussed w/RAD: Radiology Read. CXR Impression: PATIENT: MATHEW SUH PRESENT AGE: 67 PATIENT ACCOUNT NO: [id number] : 51 LOCATION: [facility] ORDERING PHYSICIAN: Augie Sullivan MD SERVICE DATE: 10/31/17 EXAM TYPE: RAD - XRY-PORTABLE CHEST XRAY EXAMINATION: XR PORTABLE CHEST CLINICAL INFORMATION: Fever COMPARISON : 02/13/2017 TECHNIQUE: Portable frontal view of the chest was obtained. FINDINGS: The lungs are well expanded. No dense consolidation, edema, or effusion. Mild central vascular prominence. No pneumothorax. The cardiomediastinal silhouette remains prominent. No acute osseous abnormality. IMPRESSION: Central vascular prominence without overt edema. No focal consolidation. DICTATED BY: Nehemiah Brown MD DATE/TIME DICTATED:10/31/17422 GRANT OFFICER:ARACELI DATE/ TIME TRANSCRIBED:10/31/17422 CONFIDENTIAL, DO NOT COPY WITHOUT APPROPRIATE AUTHORIZATION. <Electronically signed in Other Vendor System> SIGNED BY: Nehemiah Brown MD 10/31/17426 Initial ED EKG: none Departure Departure Disposition: STILL A PATIENT Condition: Stable Clinical Impression Primary Impression: Cellulitis of multiple sites of lower extremity Referrals: Bee ESCOBEDO,Torey Camacho (PCP/Family) Departure Forms: Customer Survey General Discharge Information Prescriptions: Current Visit Scripts Cephalexin (Keflex) 2 CAP PO TID #42 CAP Admission Note Spoke With: Ivy Burt MD Documentation of Exam: Documentation of any treatments & extenuating circumstances including Concerns Regarding Discharge (functional status, medication knowledge or non-compliance, living conditions, etc.) that warrant an admission rather than observation: Patient presents with high fever elevated white blood cell count and erythema and warmth of the lower extremities bilaterally. Patient has chronic lower extremity ulcers as well. His fever and chills have caused generalized weakness and gait instability. I do not feel he is a good candidate for outpatient management given the difficulty would have been compliance with outpatient treatment. He would also be at risk of falling with subsequent injury. I therefore feel he requires hospitalization for IV antibiotics to prevent secondary sepsis along with close clinical monitoring of vital signs. Patient's fever should be controlled with antipyretics and he should be given IV fluids to prevent dehydration secondary to insensible fluid losses. Culture results should be followed and treatment adjusted accordingly. If patient does not respond to initial antibiotic therapy than infectious disease consultation should be considered. I feel this patient will require a multi-day hospitalization. Given his generalized weakness and gait instability, physical therapy consultation should be considered if the patient functional capacity does not improve with treatment. Critical Care Note Critical Care Note Critical Care Time: 30-74 min Condition: Stable Clinical Impression Primary Impression: Cellulitis of multiple sites of lower extremity Referrals: Bee ESCOBEDO,Torey Camacho (PCP/Family) Departure Forms: Customer Survey General Discharge Information Admission Note Spoke With: Ivy Burt MD Documentation of Exam: Documentation of any treatments & extenuating circumstances including Concerns Regarding Discharge (functional status, medication knowledge or non-compliance, living conditions, etc.) that warrant an admission rather than observation: Patient presents with high fever elevated white blood cell count and erythema and warmth of the lower extremities bilaterally. Patient has chronic lower extremity ulcers as well. His fever and chills have caused generalized weakness and gait instability. I do not feel he is a good candidate for outpatient management given the difficulty would have been compliance with outpatient treatment. He would also be at risk of falling with subsequent injury. I therefore feel he requires hospitalization for IV antibiotics to prevent secondary sepsis along with close clinical monitoring of vital signs. Patient's fever should be controlled with antipyretics and he should be given IV fluids to prevent dehydration secondary to insensible fluid losses. Culture results should be followed and treatment adjusted accordingly. If patient does not respond to initial antibiotic therapy than infectious disease consultation should be considered. I feel this patient will require a multi-day hospitalization. Given his generalized weakness and gait instability, physical therapy consultation should be considered if the patient functional capacity does not improve with treatment. Critical Care Note Critical Care Note Critical Care Time: 30-74 min
[2017-10-31 04:00] LABS: ABSOLUTE BASOPHIL COUNT 0 /CUMM (0.0-0.2); ABSOLUTE EOSINOPHIL COUNT 0 /CUMM (0.0-0.7); ABSOLUTE GRANULOCYTE CT 12.8 /CUMM (1.4-6.5); ABSOLUTE LYMPH COUNT 0.5 /CUMM (1.2-3.4); ABSOLUTE MONOCYTE COUNT 0.7 /CUMM (0.10-0.60); BASOPHIL % 0 % (0.0-2.0); EOSINOPHIL % 0.2 % (0-5); HEMATOCRIT 47.2 % (42-52); MEAN CORPUSCULAR HGB 31.6 PG (27.0-31.0); MEAN CORPUSCULAR HGB CONC 33.2 G/DL (33.0-37.0); MEAN CORPUSCULAR VOLUME 95.4 FL (80.0-94.0); MEAN PLATELET VOLUME 8.9 FL (7.4-10.4); PLATELET COUNT 209 /CUMM (130-400); RBC DISTRIBUTION WIDTH 14.7 % (11.5-14.5); RED BLOOD CELL CT 4.95 /CUMM (4.70-6.10)
[2017-10-31 04:22] LABS: WHITE BLOOD CELL COUNT 14.1 /CUMM (4.8-10.8)
--- NOTE | 2017-10-31 04:27 | RADIOLOGY REPORT ---
EXAMINATION: XR PORTABLE CHEST CLINICAL INFORMATION: Fever COMPARISON: 02/13/2017 TECHNIQUE: Portable frontal view of the chest was obtained. FINDINGS: The lungs are well expanded. No dense consolidation, edema, or effusion. Mild central vascular prominence. No pneumothorax. The cardiomediastinal silhouette remains prominent. No acute osseous abnormality. IMPRESSION: Central vascular prominence without overt edema. No focal consolidation.
--- NOTE | 2017-10-31 06:35 | History & Physical ---
Ana Rosa ESCOBEDO,Joyce 10/31/17 0634: General Information and HPI MD Statement: I have seen and personally examined MATHEW SUH and documented this H&P. The patient is a 67 year old M who presented with a patient stated chief complaint of [fever, left leg pain and swelling]. Source of Information: patient, family, old records Exam Limitations: no limitations History of Present Illness: 66-year-old male with past medical history of hypertension, chronic venous stasis ulcer,SSS S/P multiple skin grafts) left lower extremity DVT not on anticoagulation, presents to [place] ED complaining of fever of 102.6, chills, pain 6/10 in his left lower extremity. As per the patient he was in his usual state of health yesterday and he went to his work in the morning however later on he started having intermittent fever, which alarmed him because on previous admission for cellulitis he had the same symptoms. He also reported feeling dizzy in the morning Patient denies any chest pain, nausea, vomiting, diarrhea, constipation, dysuria. Patient also denies recent travel or sick contacts or injury to his lower extremity. Patient recently had double graft 2 weeks ago with no complications, he follow- up with Dr. Castano Patient was discharged on 02/2017 after he was treated for severe sepsis due to left lower extremity cellulitis. Patient was treated with ceftazidime which was subsequently switched to IV Unasyn after the blood culture grew gram-positive cocci. Previous culture grew Pseudomonas, Serratia, MSSA. ED course: Vital signs on admission: Temperature 102.7, pulse 122, respiratory rate 16, blood pressure 119/57, pulse ox 94 on room air Chest x-ray:Central vascular prominence without overt edema. No focal consolidation. Patient received 1 L normal saline, IV acetaminophen, ciprofloxacin by mouth 500 mg once Allergies/Medications Allergies: Coded Allergies: bacitracin (Severe, HIVES 02/13/17) ceftriaxone (From ROCEPHIN) (Severe, HIVES 02/13/17) doxycycline (Severe, HIVES 02/13/17) erythromycin base (Severe, HIVES 02/13/17) gentamicin (Severe, HIVES 02/13/17) Uncoded Allergies: MEDS WHICH ENDS WITH "BASILIO" (Severe, HIVES 03/02/11) DETERGENTS (RASH 09/18/14) Home Med list Furosemide 20 MG TABLET 1 TAB PO DAILY fluid overload (Reported) Ibuprofen 800 MG TABLET 1 TAB PO TID PAIN CONTROL (Reported) Lactobac Cmb #3/Fos/Pantethine (Probiotic & Acidophilus Cap) 300MM-250 CAPSULE 1 CAP PO BID Supplement . Oxycodone HCl/Acetaminophen (Percocet 5-325 MG Tablet) 5 MG-325 MG TABLET 1 TAB PO Q6P PRN Moderate to severe pain . 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 Ambulation: independent IADLs Independent: shopping, housework, finances, food prep, telephone, transportation , medication admin. Review of Systems Review of Systems Constitutional: Reports: chills, fever, malaise, weakness. EENTM: Denies: no symptoms. Cardiovascular: Denies: no symptoms. Respiratory: Denies: no symptoms. GI: Denies: no symptoms. Genitourinary: Denies: discharge, dysuria, frequency, hematuria, hesitation. Musculoskeletal: Reports: see HPI. Denies: no symptoms. Skin: Reports: see HPI, lesions. Neurological/Psychological: Denies: no symptoms. Exam & Diagnostic Data Last 24 Hrs of Vital Signs/I&O Vital Signs Date Time Temp Pulse Resp B/P B/P Pulse O2 O2 Flow FiO2 Mean Ox Delivery Rate 10/31 0656 102.6 10/31 0655 103.3 10/31 0609 103.3 107 20 133/74 96 Room Air 10/31 0436 102.7 122 16 119/57 94 Room Air 10/31 0352 101.3 10/31 0305 98 Room Air 10/31 0217 101.3 114 18 157/76 95 Room Air Intake & Output 10/31 0800 10/31 0000 10/30 1600 Intake Total 1000 Output Total Balance 1000 Intake, IV 1000 Patient 200 lb Weight Weight Reported by Patient Measurement Method Physical Exam General Appearance Alert, Oriented X3, Cooperative, No Acute Distress HEENT Atraumatic, PERRLA, EOMI, Mucous Membr. moist/pink Neck Supple, No JVD Cardiovascular Normal S1, Normal S2, No Murmurs Lungs Clear to Auscultation Abdomen Normal Bowel Sounds, Soft, No Tenderness Neurological Normal Speech Extremities bilateral 2+ pitting edema, left lower extremity is tense and erythematous. Right lower extremity in clean Harry wrap, 2 small oozing wounds on the medial and lateral sides of the ankle S/P skin graft, dorsalis pedis intact Vascular Normal Pulses Sepsis Peripheral Pulse Location: Dorsalis Pedis Assessment/Plan Assessment: 66-year-old male with past medical history of hypertension, chronic venous stasis ulcer,SSS S/P multiple skin grafts) left lower extremity DVT not on anticoagulation, presents to [place] ED complaining of fever of 102.6, chills, pain 6/10 in his left lower extremity Pertinent labs on admission: WBC 14.1, with left shift hemoglobin 15.7, platelet 209, Sodium 140, potassium 3.9, BUN 16, creatinine 1, glucose 117, UA shows few urine bacteria Chest x-ray:Central vascular prominence without overt edema. No focal consolidation. #Sepsis secondary to left lower extremity cellulitis: Patient met 3 criteria of sepsis with tachycardia, fever, leukocytosis with left shift Admit to general medicine floor Doppler ultrasound LOWER extremity to rule out DVT Ceftazidime IV 2000 milligrams every 8 Follow-up on blood culture and urine culture Leg elevation ID consult in a.m. Vascular consult MRI of the left lower extremity to rule out osteomyelitis 1 dose of IV vancomycin Physical therapy consult Pain control with Tylenol, Motrin, Percocet Wound care consult Gentle hydration with IV D5 normal saline at a rate of 100 mL/h #History of hypertension: Continue home dose of Lasix 20 mg daily Continue home dose of potassium 20 mEq daily full Code Regular diet DVT prophylaxis with Lovenox As Ranked By This Provider Problem List: 1. Cellulitis 2. Sepsis Core Measures/Misc (05/30) Acute Coronary Syndrome ACS Diagnosis: No Congestive Heart Failure Congestive Heart Failure Diagnosis No Cerebrovascular Accident CVA/TIA Diagnosis: No VTE (View Protocol) VTE Risk Factors Age>40 No Mechanical VTE Prophylaxis d/t DVT (suspected/known) No VTE Pharm Prophylaxis d/t NA PharmProphylax ordered Sepsis (View protocol) Sepsis Present: Yes Babak Alanis 10/31/17 0728: Resident Review Statement Resident Statement: examined this patient, discussed with internet application developer, agreed with internet application developer, discussed with family, reviewed EMR data (avail), discussed with nursing , discussed with case mgmt, reviewed images, amended to note Other Findings: This is a 66-year-old man with history of hypertension, chronic venous stasis ulcer, status post multiple skin graft, history of left lower extremity DVT on February 2015 currently not on anticoagulation. Presented to the emergency department via EMS with his due to lower extremity pain and fever of 102.6. Patient stated that his symptoms started yesterday, the stated that he had fever, sweating and chills and he started to complain off bilateral lower extremity pain and tenderness that it is 6-7 out of 10 in severity more than the left. He stated that he had skin graft that was down 2 weeks ago with currently he is not on any Abx. Patient stated that he is active. Physical examination, lab and imaging as above Problem list: -Sepsis 2/2 left lower extremity cellulitis -Lower extremity pain that could be due to infection versus DVT -Chronic lower extremity venous stasis Plan: -Admit patient to general medicine floor -Vitals every shift -give 1 dose of IV vancomycin -Start the patient on IV Fortaz 1 g every 8 -Obtain a blood and urine culture, ESR, CPR. -IV fluid hydration of D5W-NS @ 100 cc/hr. -Obtain MRI of the left lower extremity to rule out osteomyelitis. -Leg elevation, wound care consultation -Infectious disease consultation in a.m. -Obtain lower extremity Doppler ultrasound to rule out DVT -Physical therapy consultation -Continue home medication -Pain pathway -Regular diet -DVT prophylaxis subcutaneous Lovenox -Full code
[2017-10-31 08:51] LABS: ABSOLUTE BASOPHIL COUNT 0 /CUMM (0.0-0.2); ABSOLUTE EOSINOPHIL COUNT 0 /CUMM (0.0-0.7); ABSOLUTE GRANULOCYTE CT 11.7 /CUMM (1.4-6.5); ABSOLUTE LYMPH COUNT 0.7 /CUMM (1.2-3.4); ABSOLUTE MONOCYTE COUNT 0.7 /CUMM (0.10-0.60); BASOPHIL % 0.4 % (0.0-2.0); EOSINOPHIL % 0.1 % (0-5); HEMATOCRIT 43.9 % (42-52); MEAN CORPUSCULAR HGB 31.7 PG (27.0-31.0); MEAN CORPUSCULAR HGB CONC 33.5 G/DL (33.0-37.0); MEAN CORPUSCULAR VOLUME 94.8 FL (80.0-94.0); MEAN PLATELET VOLUME 8.2 FL (7.4-10.4); PLATELET COUNT 191 /CUMM (130-400); RBC DISTRIBUTION WIDTH 15.1 % (11.5-14.5); RED BLOOD CELL CT 4.64 /CUMM (4.70-6.10); WHITE BLOOD CELL COUNT 13.1 /CUMM (4.8-10.8)
--- NOTE | 2017-10-31 10:05 | ULTRASOUND REPORT ---
EXAMINATION: US TRIPLEX OF LOWER EXTREMITIES, BILATERAL CLINICAL INFORMATION: Pain and swelling both lower extremities. COMPARISON: None TECHNIQUE: Color-flow triplex imaging with spectral analysis and compression Doppler were performed on the lower extremities. The examination is limited secondary to patient body habitus and swelling of the lower extremities. FINDINGS: Respiratory variation, normal compression and augmented flow are noted throughout the lower extremities. The visualized common femoral vein, superficial femoral vein, profunda femoral vein and popliteal vein show no evidence of deep venous thrombosis. Calf veins are not well visualized, likely technical. A popliteal cyst on the right measures 3.3 x 1.6 x 1.4 cm. IMPRESSION: 1. Limited evaluation because of patient body habitus and swelling in the lower extremities. Calf veins are not well visualized. No evidence for deep vein thrombosis is demonstrated. 2. Right popliteal cyst.
[2017-10-31 14:44] VITALS: BP 140/80
--- NOTE | 2017-10-31 16:29 | RADIOLOGY REPORT ---
EXAMINATION: XR FEMUR, LEFT CLINICAL INFORMATION: Fever, ulcer, evaluation for osteomyelitis COMPARISON: 05/02/2015 left leg x-ray TECHNIQUE: AP and lateral views of the left femur were obtained. FINDINGS: There is no acute fracture or dislocation of the left femur. The femoral head is normal in shape and well aligned within the acetabulum based on the frontal view. No lytic or sclerotic bony lesion. Left knee hemiarthroplasty is in place. There is no evidence of fracture or loosening of the hardware. The soft tissue is unremarkable. IMPRESSION: No acute fracture. No lytic or sclerotic bony lesion or x-ray evidence of osteomyelitis.
--- NOTE | 2017-10-31 16:45 | RADIOLOGY REPORT ---
EXAMINATION: XR FOOT, LEFT CLINICAL INFORMATION: Fever pain. Ulcer. Rule out osteomyelitis. COMPARISON: None TECHNIQUE: AP, lateral, and oblique views of the left foot. FINDINGS: No bony demineralization or erosion is identified. No fracture or dislocation is seen. The joint spaces are maintained. There is mild bony spurring of the calcaneus. The patient's reported soft tissue ulcer is not well characterized. IMPRESSION: No bony erosive changes or demineralization. A 3 phase nuclear bone scan could be considered in follow-up if clinically warranted.
--- NOTE | 2017-10-31 20:56 | PN- Att Addend ---
Attending Addendum Attending Brief Note 67M PMH hypertension, chronic venous stasis ulcer, status post multiple skin graft, history of left lower extremity DVT on February 2015 currently not on anticoagulation admitted for sepsis secondary to LLE cellulitis following skin graft placed 2 weeks ago, with history of cellulitis growing Serratia and Pseudomonas, started on Ceftazidime with one dose of Vancomycin given overnight. Patient is sleepy today but responsive, no complaints, LLE is erythematous and warm, febrile 102 overnight, WBC improved to 13, cultures NGTD. 1. Sepsis secondary to LLE cellulitis 2. History of skin graft Plan - Continue on general medicine - Continue Ceftazidime - MRI leg to rule out osteomyelitis - ID and wound consults - ESR - Leg elevation - Continue home medications - Follow cultures - DVT PPx
[2017-10-31 22:07] VITALS: BP 122/60
[2017-11-01 06:30] VITALS: BP 142/78
--- NOTE | 2017-11-01 08:01 | PN- Housestaff ---
Dottie Freitas MD,[facility] 11/01/17 0801: Subjective Follow-up For: Sepsis secondary to cellulitis Subjective: Patient visited today, was lying in bed in no acute distress, was alert and oriented. reported to feel weak, but improved compared to yesterday, had chills on and off overnight. Tmax was 101.7 in the evening. Blood pressure stable. Patient walked around. No shortness of breathing, no chest pain, no other events. Review of Systems Constitutional: Reports: see HPI. Objective Last 24 Hrs of Vital Signs/I&O Vital Signs Date Time Temp Pulse Resp B/P B/P Pulse O2 O2 Flow FiO2 Mean Ox Delivery Rate 11/01 0715 98.8 11/01 0710 98.8 11/01 0630 100.0 80 20 142/78 96 Room Air 11/01 0628 100.0 10/31 2207 97.5 82 18 122/60 96 10/31 1724 101.6 10/31 1444 99.2 111 19 140/80 95 10/31 0945 99.6 10/31 0906 100.3 100 20 138/72 97 Room Air Intake & Output 11/01 1600 11/01 0800 11/01 0000 Intake Total 1300 880 Output Total 1040 Balance 260 880 Intake, IV 800 400 Intake, Oral 500 480 Output, Urine 1040 Physical Exam General Appearance: Alert, Oriented X3, Cooperative, No Acute Distress Skin: bilaterla LE skin changes, LE erythema, dressing in medial side of foot in place. Right LE, change in pigmentation, s/p pigmentation change Skin Temp/Moisture Exam: Warm/Dry Sepsis Skin Exam (color): Normal for Ethnicity HEENT: Atraumatic, EOMI, Mucous Membr. moist/pink Cardiovascular: Regular Rate, Normal S1, Normal S2 Lungs: Normal Air Movement Abdomen: Soft, No Tenderness Neurological: Normal Speech, Strength at 5/5 X4 Ext Extremities: left side edema, erythema, wound over medial maleole. Rigth side s /p skin graft surgery Current Medications: Current Medications Sig/Phillip Start time Last Medication Dose Route Stop Time Status Admin Acetaminophen 1,000 MG Q6P PRN 10/31 0830 AC 10/31 N/A 1 UNIT IV 1724 Acetaminophen 650 MG Q6P PRN 10/31 0630 AC 11/01 PO 0628 Ceftazidime 1,000 MG IQ8 10/31 0800 AC 10/31 IV 2302 Dextrose/Sodium 1,000 ML .Q10H 10/31 0630 AC 11/01 Chloride IV 0332 Enoxaparin Sodium 40 MG DAILY 10/31 1000 AC 10/31 SC 1244 Furosemide 20 MG DAILY 10/31 1000 AC 10/31 PO 1244 Ibuprofen 600 MG Q6P PRN 10/31 0630 AC PO Lactobacillus 1 CAP BID 10/31 1000 AC 10/31 Acidophilus PO 2105 Oxycodone/ 2 TAB Q6P PRN 10/31 0630 AC 10/31 Acetaminophen PO 1100 Potassium Chloride 20 MEQ DAILY 10/31 1000 AC 10/31 PO 1244 Sodium Chloride 1,000 ML ONCE ONE 10/31 0345 DC 10/31 IV 10/31 1024 0352 Vancomycin HCl 1,000 MG ONCE ONE 10/31 0745 DC 10/31 Dextrose/Water 250 ML IV 10/31 0844 1540 Last 24 Hrs of Lab/Janes Results Last 24 Hrs of Labs/Mics: Laboratory Tests 11/01/17 0735: Sodium Pending, Potassium Pending, Chloride Pending, Carbon Dioxide Pending, Anion Gap Pending, BUN Pending, Creatinine Pending, BUN/Creatinine Ratio Pending , CBC w Diff Pending, WBC Pending, RBC Pending, Hgb Pending, Hct Pending, MCV Pending, MCH Pending, MCHC Pending, RDW Pending, Plt Count Pending, MPV Pending 10/31/17 0834: ESR Westergren 13 H 10/31/17 0834: Anion Gap 11, Estimated GFR > 60, BUN/Creatinine Ratio 14.0, C-Reactive Prot, Quant 8.5 H, CBC w Diff MAN DIFF ORDERED, RBC 4.64 L, MCV 94.8 H, MCH 31.7 H , MCHC 33.5, RDW 15.1 H, MPV 8.2, Gran % 89.0 H, Lymphocytes % 5.2 L, Monocytes % 5.3, Eosinophils % 0.1, Basophils % 0.4, Absolute Granulocytes 11.7 H, Segmented Neutrophils 86 H, Band Neutrophils 7 H, Absolute Lymphocytes 0.7 L, Lymphocytes 4 L, Monocytes 3, Absolute Monocytes 0.7 H, Absolute Eosinophils 0, Absolute Basophils 0, Platelet Estimate VERIFIED BY SMEAR, Anisocytosis 1+ Microbiology 10/31 1430 BLOOD: Blood Culture - RECD 10/31 1345 BLOOD: Blood Culture - CAN Cancelled: DUPLICATE\ 10/31 1345 BLOOD: Blood Culture - CAN Cancelled: DUPLICATE 10/31 0930 BLOOD: Blood Culture - RECD Assessment/Plan Assessment: 66-year-old male presented with Fever, chills, feeling weak and right leg swelling and erythema s/p double graft of Left LE 2w ago with Dr Manuel h/o Pseudomonas, Serratia, MSSA in soft tissue cultures in Sep 2015, h/o sepsis in February 2017 with B Strep group G in blood discharged on oral amoxicillin PMH: HTN, chronic venous stasis ulcer, SSS S/P multiple skin grafts, left LE DVT in 2014 xeralto for 6m, not on anticoagulation, obesity, chronic cellulitis, h/o osteopenia on test depot VS at admission: MAXIMUM TEMPERATURE 103, blood pressure is stable, HI 122 LLE s/p skin graft in dressing, RLE redness and swelling, chronic ulcer in medial side Labs at admission: WBC 14.1, bands 7, ESR 18, BEP insignificant Imagings at admission: CXR: Central vascular prominence without overt edema. No focal consolidation. Foot/femur xray of left foot: No acute fracture. No lytic or sclerotic bony lesion or x-ray evidence of osteomyelitis. Patient was admitted to floor for management of following conditions: Sepsis secondary to left lower extremity cellulitis: Patient met 3 criteria of sepsis with tachycardia, fever, leukocytosis with left shift Admit to general medicine floor Doppler ultrasound was done to rule out DVT: 1. Limited evaluation because of patient body habitus and swelling in the lower extremities. Calf veins are not well visualized. No evidence for deep vein thrombosis is demonstrated. 2. Right popliteal cyst. - admit to floor - monitor VS, BP - recieved 1 dose of IV vancomycin - Continue Ceftazidime IV 2000 milligrams every 8 - Follow-up on blood culture and urine culture - Leg elevation - follow ID consult in a.m. - Vascular consult - follow MRI of the left lower extremity to rule out osteomyelitis - PT consult - pain control - Gentle hydration with IV D5 normal saline at a rate of 100 mL/h History of hypertension: Continue home dose of Lasix 20 mg daily Continue home dose of potassium 20 mEq daily full Code Regular diet DVT prophylaxis with Lovenox Problem List: 1. Cellulitis 2. Sepsis Pain Ratin Pain Location: Right leg Pain Goal: Pain 4 or less Pain Plan: Continue current plan Tomorrow's Labs & Rationales: CBC BEP Zeina Shearer 11/01/17 1135: Attending MD Review Statement Attending Statement Attending MD Statement: examined this patient, discuss w/resident/PA/MEDIA MANAGER, agreed w/resident/PA/MEDIA MANAGER, discussed with family, reviewed EMR data (avail), discussed with nursing, discussed with case mgmt, reviewed images, amended to note Attending Assessment/Plan: 66-year-old man with history of hypertension, chronic venous stasis ulcer, status post multiple skin graft, history of left lower extremity DVT on February 2015 resolved currently not on anticoagulation. Presented to the emergency department via EMS with his due to lower extremity pain and fever of 102.6 admitted for cellulitis of left lower extremity. 1. Sepsis 2/2 left lower extremity cellulitis with improvement 2. Lower extremity pain that could be due to infection, No DVT 3. Chronic lower extremity venous stasis ulcers 4. hypertension Plan: -Admit patient to general medicine floor -iv abx as per previous cultures, ID consult. -f/u blood and urine culture, ESR, CPR., IVF. -MRI of the left lower extremity to rule out osteomyelitis f/u -Leg elevation, wound care consultation -Infectious disease consult -Physical therapy consultation -Continue home medication -Pain pathway -Regular diet -DVT prophylaxis subcutaneous Lovenox. Patient
[2017-11-01 08:28] LABS: ABSOLUTE BASOPHIL COUNT 0 /CUMM (0.0-0.2); ABSOLUTE EOSINOPHIL COUNT 0 /CUMM (0.0-0.7); ABSOLUTE LYMPH COUNT 1.1 /CUMM (1.2-3.4); ABSOLUTE MONOCYTE COUNT 0.8 /CUMM (0.10-0.60); BASOPHIL % 0.1 % (0.0-2.0); EOSINOPHIL % 0.1 % (0-5); HEMATOCRIT 44.1 % (42-52); MEAN CORPUSCULAR HGB 31.7 PG (27.0-31.0); MEAN CORPUSCULAR HGB CONC 33.2 G/DL (33.0-37.0); MEAN CORPUSCULAR VOLUME 95.3 FL (80.0-94.0); MEAN PLATELET VOLUME 8.8 FL (7.4-10.4); PLATELET COUNT 173 /CUMM (130-400); RBC DISTRIBUTION WIDTH 14.7 % (11.5-14.5); RED BLOOD CELL CT 4.63 /CUMM (4.70-6.10); WHITE BLOOD CELL COUNT 11.9 /CUMM (4.8-10.8)
[2017-11-01 09:37] LABS: GRANULOCYTE % 83.7 % (42.2-75.2)
--- NOTE | 2017-11-01 10:00 | Cons- Vascular Surgery ---
General Information and HPI Consulting Request Date of Consult: 11/01/17 Requested By: Zeina Shearer MD Reason for Consult: Left leg cellulitis and venous stasis wound Source of Information: patient, old records Exam Limitations: no limitations History of Present Illness: 67-year-old male with a past medical history significant for HTN, venous hypertension and venous ulceration. He is well-known to our vascular service for bilateral iliac venous stents and wound care at the wound center. Recently, he noticed a break in the left foot and over the weekend developed extensive swelling in the left leg. Thid was accompanied by fever and chills. He came to the hospital and was noted to have extensive cellulitis of the left leg was started on antibiotics. He denies any claudication or rest pain. He recently had a graft placed on the right leg and the wounds on the right foot are healing. His new left wound has not been cultured. Allergies/Medications Allergies: Coded Allergies: bacitracin (Severe, HIVES 02/13/17) ceftriaxone (From ROCEPHIN) (Severe, HIVES 02/13/17) doxycycline (Severe, HIVES 02/13/17) erythromycin base (Severe, HIVES 02/13/17) gentamicin (Severe, HIVES 02/13/17) Uncoded Allergies: MEDS WHICH ENDS WITH "BASILIO" (Severe, HIVES 03/02/11) DETERGENTS (RASH 05/31/14) Home Med List: Furosemide 20 MG TABLET 1 TAB PO DAILY fluid overload (Reported) Ibuprofen 800 MG TABLET 1 TAB PO TID PAIN CONTROL (Reported) Lactobac Cmb #3/Fos/Pantethine (Probiotic & Acidophilus Cap) 300MM-250 CAPSULE 1 CAP PO BID Supplement . Oxycodone HCl/Acetaminophen (Percocet 5-325 MG Tablet) 5 MG-325 MG TABLET 1 TAB PO Q6P PRN Moderate to severe pain . Potassium Chloride (Klor-Con M10) 10 MEQ TAB.ER.PRT 1 TAB PO DAILY supplements (Reported) Testosterone Cypionate 200 MG/ML VIAL 1 ML IM Q 3 WEEKS HRT (Reported) Current Medications: Current Medications Sig/Phillip Start time Last Medication Dose Route Stop Time Status Admin Acetaminophen 1,000 MG Q6P PRN 10/31 0830 AC 10/31 N/A 1 UNIT IV 1724 Acetaminophen 650 MG Q6P PRN 10/31 0630 AC 11/01 PO 0628 Ceftazidime 1,000 MG IQ8 10/31 0800 AC 11/01 IV 0901 Dextrose/Sodium 1,000 ML .Q10H 10/31 0630 AC 11/01 Chloride IV 0332 Enoxaparin Sodium 40 MG DAILY 10/31 1000 AC 11/01 SC 0901 Furosemide 20 MG DAILY 10/31 1000 AC 11/01 PO 0901 Ibuprofen 600 MG Q6P PRN 10/31 0630 AC PO Lactobacillus 1 CAP BID 10/31 1000 AC 11/01 Acidophilus PO 0901 Oxycodone/ 2 TAB Q6P PRN 10/31 0630 AC 10/31 Acetaminophen PO 1100 Potassium Chloride 20 MEQ DAILY 10/31 1000 AC 11/01 PO 0901 Sodium Chloride 1,000 ML ONCE ONE 10/31 0345 DC 10/31 IV 10/31 1024 0352 Past History Medical History Blood Transfusion Hx: No Neurological: NONE EENT: NONE Cardiovascular: chronic venous insuff Respiratory: NONE Gastrointestinal: GERD Hepatic: NONE Renal: NONE Musculoskeletal: osteoporosis Psychiatric: NONE Endocrine: NONE Blood Disorders: DVT (right leg) Cancer(s): 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 Ambulation: independent IADLs Independent: shopping, housework, finances, food prep, telephone, transportation , medication admin. Review of Systems Review of Systems: Patient reports general weakness and malaise associated with fever also has left lower extremity swelling and discomfort Review of Systems Constitutional: Reports: chills, fever. Skin: Reports: see HPI. Exam & Diagnostic Data Vital Signs and I&O Vital Signs Date Time Temp Pulse Resp B/P B/P Pulse O2 O2 Flow FiO2 Mean Ox Delivery Rate 11/01 0715 98.8 11/01 0710 98.8 11/01 06 100.0 80 20 142/78 96 Room Air 11/01 0628 100.0 10/31 2207 97.5 82 18 122/60 96 10/31 1724 101.6 02/18 1444 99.2 111 19 140/80 95 Intake & Output 11/01 1600 11/01 0800 11/01 0000 10/31 1600 10/31 0800 10/31 0000 Intake Total 5975 143 9182 Output Total 1040 400 Balance 260 880 -400 1000 Intake, IV 891 037 5592 Intake, Oral 500 480 Output, Urine 1040 400 Patient 320 lb 200 lb Weight Weight Reported by Patient Reported by Patient Measurement Method Physical Exam: Physical exam reveals both lower extremities are well-perfused, there is no evidence of arterial ulceration, he has a medial and lateral venous stasis wound on the right side with hyperpigmentation and good granulation tissue. On the left side he has extensive swelling which extends from the foot to the knee area. There is erythema, he has a small break in the skin in the dorsum of the foot consistent with a venous stasis wound which is new. Last 24 Hours of Labs: Laboratory Tests 11/01 0735 Chemistry Sodium (137 - 145 mmol/L) 140 Potassium (3.5 - 5.1 mmol/L) 3.5 Chloride (98 - 107 mmol/L) 104 Carbon Dioxide (22 - 30 mmol/L) 25 Anion Gap (5 - 16) 11 BUN (9 - 20 mg/dL) 9 Creatinine (0.7 - 1.2 mg/dL) 0.9 Estimated GFR (>60 ml/min) > 60 BUN/Creatinine Ratio (7 - 25 %) 10.0 Hematology CBC w Diff NO MAN DIFF REQ WBC (4.8 - 10.8 /CUMM) 11.9 H RBC (4.70 - 6.10 /CUMM) 4.63 L Hgb (14.0 - 18.0 G/DL) 14.6 Hct (42 - 52 %) 44.1 MCV (80.0 - 94.0 FL) 95.3 H MCH (27.0 - 31.0 PG) 31.7 H MCHC (33.0 - 37.0 G/DL) 33.2 RDW (11.5 - 14.5 %) 14.7 H Plt Count (130 - 400 /CUMM) 173 MPV (7.4 - 10.4 FL) 8.8 Gran % (42.2 - 75.2 %) 83.7 H Lymphocytes % (20.5 - 51.1 %) 9.2 L Monocytes % (1.7 - 9.3 %) 6.9 Eosinophils % (0 - 5 %) 0.1 Basophils % (0.0 - 2.0 %) 0.1 Absolute Granulocytes (1.4 - 6.5 /CUMM) 10.0 H Absolute Lymphocytes (1.2 - 3.4 /CUMM) 1.1 L Absolute Monocytes (0.10 - 0.60 /CUMM) 0.8 H Absolute Eosinophils (0.0 - 0.7 /CUMM) 0 Absolute Basophils (0.0 - 0.2 /CUMM) 0 Imaging Results: Venous ultrasound reveals no evidence of DVT, x-ray of the foot is negative for osteo. Assessment/Plan Assessment/Plan 67-year-old male with venous insufficiency with ulceration with new left foot wound and extensive cellulitis so should with fever and a high white count 1.) Please swab/culture the left foot wound to help with antibiotic selection 2.) No role for MRI at this stage since the wound is superficial/new and since x-rays negative for osteo. 3.) Please place Aquacel Ag on all the wounds (DO NOT USE XEROFORM)-and wrap legs with a Kerlix to help with compression 4.) Antibiotics as per primary team/infectious disease 5.) Follow up at wound center upon discharge Problem List: 1. Cellulitis 2. Lower extremity ulceration Copies To: Grzegorz ESCOBEDO,Barron Alex; Brenda ESCOBEDO,Emeka Spain. Consult Acknowledgment - Thank you for your consult request. Attending MD Review Statement Attending Statement Attending Statement: examined this patient, reviewed EMR data (avail)
--- NOTE | 2017-11-01 12:56 | Cons- Infect Disease ---
General Information and HPI Consulting Request Date of Consult: 11/01/17 Requested By: Zeina Shearer MD Reason for Consult: Cellulitis of the left lower extremity Source of Information: patient, family, old records History of Present Illness: This is a 67-year-old man with a history of a right popliteal DVT, venous insufficiency, status post multiple ablations, with a chronic, nonhealing right medial malleolar ulcer for over 30 years, status post skin grafts to the right medial and a lateral malleolar ulcer 2 weeks prior to admission, with a history of recurrent cellulitis of both lower extremities, most recently 8 months prior to admission, at which time he had left leg cellulitis and Group G strep bacteremia, discharged on Amoxicillin to complete a two-week course of treatment , admitted on October 31 with the acute onset of chills, erythema and pain in the left lower extremity. On admission he was febrile to 103.3. Laboratory data revealed a white blood cell count of 14,000, BUN/creatinine 16 and 1.0, with normal liver enzymes. Urinalysis negative. Dopplers of both lower extremities revealed a right popliteal cyst. Chest x-ray revealed central vascular prominence. X-ray of the left femur was negative. X-ray of the left foot was also negative. He was given Bactrim, Ciprofloxacin, Vancomycin and Ceftazidime. He has had low-grade fevers this morning and continues to report chills and discomfort in the left leg. Allergies/Medications Allergies: Coded Allergies: bacitracin (Severe, HIVES 02/13/17) ceftriaxone (From ROCEPHIN) (Severe, HIVES 02/13/17) doxycycline (Severe, HIVES 02/13/17) erythromycin base (Severe, HIVES 02/13/17) gentamicin (Severe, HIVES 02/13/17) Uncoded Allergies: MEDS WHICH ENDS WITH "BASILIO" (Severe, HIVES 03/02/11) DETERGENTS (RASH 05/31/14) Home Med List: Furosemide 20 MG TABLET 1 TAB PO DAILY fluid overload (Reported) Ibuprofen 800 MG TABLET 1 TAB PO TID PAIN CONTROL (Reported) Lactobac Cmb #3/Fos/Pantethine (Probiotic & Acidophilus Cap) 300MM-250 CAPSULE 1 CAP PO BID Supplement . Oxycodone HCl/Acetaminophen (Percocet 5-325 MG Tablet) 5 MG-325 MG TABLET 1 TAB PO Q6P PRN Moderate to severe pain . 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 Ambulation: independent IADLs Independent: shopping, housework, finances, food prep, telephone, transportation , medication admin. Exam & Diagnostic Data Last 24 Hrs of Vital Signs/I&O Vital Signs Date Time Temp Pulse Resp B/P B/P Pulse O2 O2 Flow FiO2 Mean Ox Delivery Rate 11/01 0715 98.8 11/01 0710 98.8 11/01 0630 100.0 80 20 142/78 96 Room Air 11/01 0628 100.0 10/31 2207 97.5 82 18 122/60 96 10/31 1724 101.6 10/31 1444 99.2 111 19 140/80 95 Intake & Output 11/01 1600 11/01 0800 11/01 0000 Intake Total 1300 880 Output Total 925 1040 Balance -925 260 880 Intake, IV 800 400 Intake, Oral 500 480 Output, Urine 925 1040 Physical Exam Other Physical Findings: MAXIMUM TEMPERATURE 103.3. He is awake and alert in no acute distress. Skin reveals no rash. HEENT negative. Neck is supple with no adenopathy. Lungs are clear. Heart regular rhythm with no murmur. Abdomen is obese, soft, nontender with positive bowel sounds. Back no CVA tenderness. Extremities left leg erythema and warmth from the ankle to the knee, with 1+ edema, with small ulcerations over the dorsal lateral aspect of the foot; right ankle dressing intact, with chronic venous stasis changes to the right lower extremity. Neuro is without focality. Last 24 Hours of Lab Results: Laboratory Tests 11/01 0735 Chemistry Sodium (137 - 145 mmol/L) 140 Potassium (3.5 - 5.1 mmol/L) 3.5 Chloride (98 - 107 mmol/L) 104 Carbon Dioxide (22 - 30 mmol/L) 25 Anion Gap (5 - 16) 11 BUN (9 - 20 mg/dL) 9 Creatinine (0.7 - 1.2 mg/dL) 0.9 Estimated GFR (>60 ml/min) > 60 BUN/Creatinine Ratio (7 - 25 %) 10.0 Hematology CBC w Diff NO MAN DIFF REQ WBC (4.8 - 10.8 /CUMM) 11.9 H RBC (4.70 - 6.10 /CUMM) 4.63 L Hgb (14.0 - 18.0 G/DL) 14.6 Hct (42 - 52 %) 44.1 MCV (80.0 - 94.0 FL) 95.3 H MCH (27.0 - 31.0 PG) 31.7 H MCHC (33.0 - 37.0 G/DL) 33.2 RDW (11.5 - 14.5 %) 14.7 H Plt Count (130 - 400 /CUMM) 173 MPV (7.4 - 10.4 FL) 8.8 Gran % (42.2 - 75.2 %) 83.7 H Lymphocytes % (20.5 - 51.1 %) 9.2 L Monocytes % (1.7 - 9.3 %) 6.9 Eosinophils % (0 - 5 %) 0.1 Basophils % (0.0 - 2.0 %) 0.1 Absolute Granulocytes (1.4 - 6.5 /CUMM) 10.0 H Absolute Lymphocytes (1.2 - 3.4 /CUMM) 1.1 L Absolute Monocytes (0.10 - 0.60 /CUMM) 0.8 H Absolute Eosinophils (0.0 - 0.7 /CUMM) 0 Absolute Basophils (0.0 - 0.2 /CUMM) 0 Last 24 Hours of Janes Results: Blood cultures October 31 negative Urine culture October 31 negative Rapid flu swab October 31 negative Diagnostic Data Recent Imaging Findings: Dopplers of both lower extremities revealed a right popliteal cyst. Chest x-ray revealed central vascular prominence. X-ray of the left femur negative. X-ray of the left foot negative. Assessment/Plan Assessment/Plan Impression: This is a 67-year-old man with a history of venous insufficiency, status post multiple ablations, with a chronic, nonhealing right medial malleolar ulcer for over 30 years, status post skin grafts to the right medial and a lateral malleolar ulcer 2 weeks prior to admission, with recurrent cellulitis of both lower extremities, most recently 8 months prior to admission, at which time he had left leg cellulitis and Group G strep bacteremia, admitted on October 31 with the acute onset of chills, erythema and pain in the left lower extremity, found to be febrile with a leukocytosis. His clinical picture is consistent with cellulitis of the left lower extremity. This may be related to the small ulcerations on the dorsal aspect of his left foot which, in combination with venous stasis, likely led to the cellulitis. The most likely organisms are beta-hemolytic strep and MSSA; therefore his antibiotics should be directed primarily against these pathogens. Superficial cultures of the right leg have grown multiple organisms in the past but suspect that these represent colonization and, therefore, treatment should not be directed against these organisms. Do not suspect underlying osteomyelitis of the left leg; therefore do not feel that a MRI is indicated at this time. Suggestion: 1. Elevation of the left leg 2. Further management of his right ankle ulcers per Vascular Surgery 3. Discontinue Ceftazidime 4. Begin Cefazolin 2 grams IV every 8 hours Consult Acknowledgment - Thank you for your consult request.
[2017-11-01 15:08] VITALS: BP 130/80
[2017-11-01 22:48] VITALS: BP 132/80
[2017-11-02 06:20] VITALS: BP 138/70
--- NOTE | 2017-11-02 08:17 | PN- Student ---
Subjective Subjective: 67 year old male with a PMHx of HTN, chronic venous stasis, left lower extremity DVT, and SSS s/p multiple skin grafts 2 weeks ago who was admitted to our service after presenting to the ED with a fever of 102.6, chills, and a 6/10 pain in his left lower extremity. Overnight, he complained of left leg pain, alleviated with percorcet. However, he had residual nausea which he thinks is due to taking the medication on an empty stomach. Objective Objective: CONSULTS: INFECTIOUS DISEASE- The most likely organisms are beta-hemolytic strep and MSSA ; therefore his antibiotics should be directed primarily against these pathogens. Superficial cultures of the right leg have grown multiple organisms in the past but suspect that these represent colonization and, therefore, treatment should not be directed against these organisms. Do not suspect underlying osteomyelitis of the left leg; therefore do not feel that a MRI is indicated at this time. Suggestion: 1. Elevation of the left leg 2. Further management of his right ankle ulcers per Vascular Surgery 3. Discontinue Ceftazidime 4. Begin Cefazolin 2 grams IV every 8 hours VASCULAR SURGERY-1.) Please swab/culture the left foot wound to help with antibiotic selection 2.) No role for MRI at this stage since the wound is superficial/new and since x-rays negative for osteo. 3.) Please place Aquacel Ag on all the wounds (DO NOT USE XEROFORM)-and wrap legs with a Kerlix to help with compression 4.) Antibiotics as per primary team/infectious disease 5.) Follow up at wound center upon discharge IMAGING: [10/31/17] VENOUS DOPPLER STUDY-IMPRESSION: 1. Limited evaluation because of patient body habitus and swelling in the lower extremities. Calf veins are not well visualized. No evidence for deep vein thrombosis is demonstrated. 2. Right popliteal cyst. [10/31/17] CXR-IMPRESSION: Central vascular prominence without overt edema. No focal consolidation. [10/31/17] FEMUR XRAY-IMPRESSION: No acute fracture. No lytic or sclerotic bony lesion or x-ray evidence of osteomyelitis. [10/31/17] FOOT XRAY-IMPRESSION: No bony erosive changes or demineralization. A 3 phase nuclear bone scan could be considered in follow-up if clinically warranted. PHYSICAL EXAMINATION: Vitals: 97.6, 71, 18, 138/70, 96RA General: Well appearing, AOx3, NAD. Cardiovascular: RR, no murmors, rubs, gallops Pulmonary: CTAB GI:soft, nontender Extremities: Left leg erythematous, warm, and TTP. Pulses 2+ b/l Results Results: Laboratory Tests 11/01/17 0735: Anion Gap 11, Estimated GFR > 60, BUN/Creatinine Ratio 10.0, CBC w Diff NO MAN DIFF REQ, RBC 4.63 L, MCV 95.3 H, MCH 31.7 H, MCHC 33.2, RDW 14.7 H, MPV 8.8 , Gran % 83.7 H, Lymphocytes % 9.2 L, Monocytes % 6.9, Eosinophils % 0.1, Basophils % 0.1, Absolute Granulocytes 10.0 H, Absolute Lymphocytes 1.1 L, Absolute Monocytes 0.8 H, Absolute Eosinophils 0, Absolute Basophils 0 10/31/17 0834: ESR Westergren 13 H 10/31/17 0834: Anion Gap 11, Estimated GFR > 60, BUN/Creatinine Ratio 14.0, C-Reactive Prot, Quant 8.5 H, CBC w Diff MAN DIFF ORDERED, RBC 4.64 L, MCV 94.8 H, MCH 31.7 H , MCHC 33.5, RDW 15.1 H, MPV 8.2, Gran % 89.0 H, Lymphocytes % 5.2 L, Monocytes % 5.3, Eosinophils % 0.1, Basophils % 0.4, Absolute Granulocytes 11.7 H, Segmented Neutrophils 86 H, Band Neutrophils 7 H, Absolute Lymphocytes 0.7 L, Lymphocytes 4 L, Monocytes 3, Absolute Monocytes 0.7 H, Absolute Eosinophils 0, Absolute Basophils 0, Platelet Estimate VERIFIED BY SMEAR, Anisocytosis 1+ 10/31/17 0645: Lactic Acid Cancelled 10/31/17 0526: Virus Culture Pending 10/31/17 0507: Urinalysis LIGHT H, Urine Color YEL, Urine Clarity CLEAR, Urine pH 7.0, Ur Specific [place] 1.020, Urine Protein TRACE H, Urine Ketones NEG, Urine Nitrite NEG, Urine Bilirubin NEG, Urine Urobilinogen 0.2, Ur Leukocyte Esterase NEG, Ur Microscopic SEDIMENT EXAMINED, Ur Epithelial Cells RARE, Urine Bacteria FEW H, Urine Hemoglobin NEG, Urine Glucose NEG 10/31/17 0348: Anion Gap 13, Estimated GFR > 60, BUN/Creatinine Ratio 16.0, Glucose 117 H, Lactic Acid 1.9, Calcium 9.6, Total Bilirubin 1.1, AST 21, ALT 43, Alkaline Phosphatase 87, Total Protein 7.5, Albumin 4.5, Globulin 3.0, Albumin/Globulin Ratio 1.5, CBC w Diff NO MAN DIFF REQ, RBC 4.95, MCV 95.4 H, MCH 31.6 H, MCHC 33.2, RDW 14.7 H, MPV 8.9, Gran % 91.0 H, Lymphocytes % 3.6 L, Monocytes % 5.2, Eosinophils % 0.2, Basophils % 0, Absolute Granulocytes 12.8 H, Absolute Lymphocytes 0.5 L, Absolute Monocytes 0.7 H, Absolute Eosinophils 0, Absolute Basophils 0 Microbiology 10/31 1430 BLOOD: Blood Culture - RES 10/31 1345 BLOOD: Blood Culture - CAN Cancelled: DUPLICATE\\ 10/31 1345 BLOOD: Blood Culture - CAN Cancelled: DUPLICATE 10/31 0930 BLOOD: Blood Culture - RES 10/31 0752 NASOPHARYN: Influenza Virus A & B Rapid Smear - COMP 10/31 0630 BLOOD: Blood Culture - CAN Cancelled: DUPLICATE 10/31 0507 URINE ROUT: Urine Culture - RES 10/31 0349 BLOOD: Blood Culture - RES 10/31 0332 BLOOD: Blood Culture - CAN Cancelled: Quantity not sufficient for Aerobic blood culture bottle. Assessment/Plan Assessment: 67 year old male with a PMHx of HTN, chronic venous stasis, left lower extremity DVT, and SSS s/p multiple skin grafts 2 weeks ago who was admitted to our service after presenting to the ED with a fever of 102.6, chills, and a 6/10 pain in his left lower extremity. On physical examination, his temperature has subsided to 97.6 from reported 103.3 on admission and there is significant TTP, erythema, and warms over his left nieves consistent with sepsis 2/2 cellulitis. Vitals: 97.6, 71, 18, 138/70, 96RA Labs: WBC 11.9 (from 13.1), chemistry WNL (from BUN/Cr 16) Cultures: Negative for influenza A&B, Urine and blood showed no growth after 1day PMHx: Sepsis 2/2 cellulitis in left lower extremity 02/2017 Imaging: Insignificant findings in lower extremities and a vascular prominence on CXR. Problem list: Sepsis 2/2 left lower extremity cellulitis HTN Venous stasis 1) Sepsis 2/2 left lower extremity cellulitis Plan: 1. Elevation of the left leg 2. Further management of his right ankle ulcers per Vascular Surgery 3. Discontinue Ceftazidime 4. Begin Cefazolin 2 grams IV every 8 hours 2) HTN Plan: Continue home medications 3) Venous stasis Plan per ID: 1.) Please swab/culture the left foot wound to help with antibiotic selection 2.) No role for MRI at this stage since the wound is superficial/new and since x-rays negative for osteo. 3.) Please place Aquacel Ag on all the wounds (DO NOT USE XEROFORM)-and wrap legs with a Kerlix to help with compression 4.) Antibiotics as per primary team/infectious disease 5.) Follow up at wound center upon discharge Code status: Full Diet: Heart healthy DVT ppx: ALPS with 40mg SQ lovenox qd doxycycline (Severe, HIVES 02/13/17) erythromycin base (Severe, HIVES 02/13/17) gentamicin (Severe, HIVES 02/13/17) Uncoded Allergies: MEDS WHICH ENDS WITH "BASILIO" (Severe, HIVES 03/02/11) DETERGENTS (RASH 05/31/14) Home Med list Furosemide 20 MG TABLET 1 TAB PO DAILY fluid overload (Reported) Ibuprofen 800 MG TABLET 1 TAB PO TID PAIN CONTROL (Reported) Lactobac Cmb #3/Fos/Pantethine (Probiotic & Acidophilus Cap) 300MM-250 CAPSULE 1 CAP PO BID Supplement . Oxycodone HCl/Acetaminophen (Percocet 5-325 MG Tablet) 5 MG-325 MG TABLET 1 TAB PO Q6P PRN Moderate to severe pain . Potassium Chloride (Klor-Con M10) 10 MEQ TAB.ER.PRT 1 TAB PO DAILY supplements (Reported) Testosterone Cypionate 200 MG/ML VIAL 1 ML IM Q 3 WEEKS HRT (Reported)
--- NOTE | 2017-11-02 08:22 | PN- Housestaff ---
Dottie Freitas MD,[facility] 11/02/17 0821: Subjective Follow-up For: Sepsis secondary to Leg cellulitis Subjective: Patient visited today, was lying in bed comfortably in no acute distress, was alert and oriented. Reported significant improvement after starting new antibiotics yesterday, was likely lag period before antibiotics start to effect. No fever but reported occasional chills chills, no shortness of breathing, no chest pain, no other events. Review of Systems Constitutional: Reports: see HPI. Objective Last 24 Hrs of Vital Signs/I&O Vital Signs Date Time Temp Pulse Resp B/P B/P Pulse O2 O2 Flow FiO2 Mean Ox Delivery Rate 11/02 06 97.6 71 18 138/70 96 Room Air 11/01 2248 98.8 83 18 132/80 95 Room Air 11/01 1508 98.8 89 18 130/80 95 Intake & Output 11/02 1600 11/02 0800 11/02 0000 Intake Total 690 500 Output Total 1300 400 Balance -610 100 Intake, IV 90 50 Intake, Oral 600 450 Output, Urine 1300 400 Physical Exam General Appearance: Alert, Cooperative, No Acute Distress Skin: IMPROVED LEFT LEF ERYTHEMA AND SWELLING. TENDERNESS IMPROVED TO TOUCH Skin Temp/Moisture Exam: Warm/Dry Sepsis Skin Exam (color): Normal for Ethnicity HEENT: Atraumatic, EOMI, Mucous Membr. moist/pink Cardiovascular: Normal S1, Normal S2 Lungs: Clear to Auscultation Abdomen: Soft, No Tenderness Neurological: Normal Speech, Strength at 5/5 X4 Ext Extremities: NOTED ABOVE, DRESSING IN PLACE Current Medications: Current Medications Sig/Phillip Start time Last Medication Dose Route Stop Time Status Admin Acetaminophen 1,000 MG Q6P PRN 10/31 0830 AC 11/01 N/A 1 UNIT IV 1244 Acetaminophen 650 MG Q6P PRN 10/31 0630 AC 11/01 PO 0628 Cefazolin Sodium 2 GM IQ8 11/01 1600 AC 11/02 N/A 1 UNIT IV 0755 Ceftazidime 1,000 MG IQ8 10/31 0800 DC 11/01 IV 0901 Dextrose/Sodium 1,000 ML .Q10H 10/31 0630 DC 11/01 Chloride IV 0332 Enoxaparin Sodium 40 MG DAILY 10/31 1000 AC 11/01 SC 0901 Furosemide 20 MG DAILY 10/31 1000 AC 11/01 PO 0901 Ibuprofen 600 MG Q6P PRN 10/31 0630 AC PO Lactobacillus 1 CAP BID 10/31 1000 AC 11/01 Acidophilus PO 203 Oxycodone/ 2 TAB Q6P PRN 10/31 0630 AC 11/02 Acetaminophen PO 0015 Potassium Chloride 20 MEQ DAILY 10/31 1000 AC 11/01 PO 0901 Senna/Docusate Sodium 2 TAB DAILY 11/01 1630 AC 11/01 PO 1800 Last 24 Hrs of Lab/Janes Results Last 24 Hrs of Labs/Mics: Microbiology 11/02 821 EXTREMITIE: Culture & Sensitivity - ORD 11/02 821 EXTREMITIE: Gram Stain - ORD Assessment/Plan Assessment: 66-year-old male presented with Fever, chills, feeling weak and right leg swelling and erythema s/p double graft of Left LE 2w ago with Dr Manuel h/o Pseudomonas, Serratia, MSSA in soft tissue cultures in Sep 2015, h/o sepsis in February 2017 with B Strep group G in blood discharged on oral amoxicillin PMH: HTN, chronic venous stasis ulcer, SSS S/P multiple skin grafts, left LE DVT in 2014 xeralto for 6m, not on anticoagulation, obesity, chronic cellulitis, h/o osteopenia on test depot VS at admission: MAXIMUM TEMPERATURE 103, blood pressure is stable, AL 122 LLE s/p skin graft in dressing, RLE redness and swelling, chronic ulcer in medial side Labs at admission: WBC 14.1, bands 7, ESR 18, BEP insignificant Imagings at admission: CXR: Central vascular prominence without overt edema. No focal consolidation. Foot/femur xray of left foot: No acute fracture. No lytic or sclerotic bony lesion or x-ray evidence of osteomyelitis. Patient was admitted to floor for management of following conditions: Sepsis secondary to left lower extremity cellulitis: At the time of admission, Patient met 3 criteria of sepsis with tachycardia, fever, leukocytosis with left shift. Patient was admitted to floor. Doppler ultrasound was done to rule out DVT: 1. Limited evaluation because of patient body habitus and swelling in the lower extremities. Calf veins are not well visualized. No evidence for deep vein thrombosis is demonstrated. 2. Right popliteal cyst. Patient recieved 1 dose of IV vancomycin. Later initially IV Ceftazidime was administered and then changed to IV cefazoline. MRI was not indicated considering the superficial nature of the skin ulcer. - continue IV Cefazoline - Leg elevation - follow ID consult in a.m. - PT consult - pain control History of hypertension, leg swelling: We continued home dose of Lasix 20 mg daily and potassium 20 mEq daily full Code Regular diet DVT prophylaxis with Lovenox Problem List: 1. Cellulitis 2. Sepsis Pain Ratin Pain Location: None Pain Goal: Pain 4 or less Pain Plan: NA Tomorrow's Labs & Rationales: LAURENCE Zeina Shearer 11/02/17 1124: Attending MD Review Statement Attending Statement Attending MD Statement: examined this patient, discuss w/resident/PA/RESIDENTIAL GLAZIER, agreed w/resident/PA/RESIDENTIAL GLAZIER, discussed with family, reviewed EMR data (avail), discussed with nursing, discussed with case mgmt, reviewed images, amended to note Attending Assessment/Plan: 66-year-old man with history of hypertension, chronic venous stasis ulcer, status post multiple skin graft, history of left lower extremity DVT on February 2015 resolved currently not on anticoagulation. Presented to the emergency department via EMS with his due to lower extremity pain and fever of 102.6 admitted for cellulitis of left lower extremity. Patient seen/examined bedside. Still redness+, pain +, warmth+. Slow clinical improvement. 1. Sepsis 2/2 left lower extremity cellulitis with improvement 2. Lower extremity pain that could be due to infection, No DVT 3. Chronic lower extremity venous stasis ulcers 4. hypertension Plan: -iv abx as per ID. -f/u cultures negative so far -Leg elevation -venous ulcers care as per vascular surgery. -Physical therapy consultation -Continue home medication -Pain pathway -Regular diet -DVT prophylaxis
--- NOTE | 2017-11-02 08:31 | PN- Student ---
Subjective Subjective: Follow up for: Cellulitis Subjective: No overnight events.Patient reports that he was "clammy" last night and could not adjust to the temperature,sometimes it was too cold other times too hot.Checked his temperature overnight and it was 97.7.Denies chills ,SOB or chest pain.Had pain in his left leg overnight and requested percorcet.Patient reports that it made him nauseous and hurt his stomach.He attributes this to taking it on an empty stomach. Review of Systems Review of Systems Constitutional: Reports: diaphoresis. Denies: chills, fever. Cardiovascular: Denies: chest pain, palpitations. Respiratory: Reports: no symptoms. Objective Objective: Vital Signs Date Time Temp Pulse Resp B/P B/P Pulse O2 O2 Flow FiO2 Mean Ox Delivery Rate 11/02 0620 97.6 71 18 138/70 96 Room Air 11/01 2248 98.8 83 18 132/80 95 Room Air 11/01 1508 98.8 89 18 130/80 95 Intake & Output 11/02 1600 11/02 0800 11/02 0000 Intake Total 690 500 Output Total 1300 400 Balance -610 100 Intake, IV 90 50 Intake, Oral 600 450 Output, Urine 1300 400 Results Results: Laboratory Tests 11/01/17 0735: Anion Gap 11, Estimated GFR > 60, BUN/Creatinine Ratio 10.0, CBC w Diff NO MAN DIFF REQ, RBC 4.63 L, MCV 95.3 H, MCH 31.7 H, MCHC 33.2, RDW 14.7 H, MPV 8.8 , Gran % 83.7 H, Lymphocytes % 9.2 L, Monocytes % 6.9, Eosinophils % 0.1, Basophils % 0.1, Absolute Granulocytes 10.0 H, Absolute Lymphocytes 1.1 L, Absolute Monocytes 0.8 H, Absolute Eosinophils 0, Absolute Basophils 0 10/31/17 0834: ESR Westergren 13 H 10/31/17 0834: Anion Gap 11, Estimated GFR > 60, BUN/Creatinine Ratio 14.0, C-Reactive Prot, Quant 8.5 H, CBC w Diff MAN DIFF ORDERED, RBC 4.64 L, MCV 94.8 H, MCH 31.7 H , MCHC 33.5, RDW 15.1 H, MPV 8.2, Gran % 89.0 H, Lymphocytes % 5.2 L, Monocytes % 5.3, Eosinophils % 0.1, Basophils % 0.4, Absolute Granulocytes 11.7 H, Segmented Neutrophils 86 H, Band Neutrophils 7 H, Absolute Lymphocytes 0.7 L, Lymphocytes 4 L, Monocytes 3, Absolute Monocytes 0.7 H, Absolute Eosinophils 0, Absolute Basophils 0, Platelet Estimate VERIFIED BY SMEAR, Anisocytosis 1+ 10/31/17 0645: Lactic Acid Cancelled 10/31/17 0526: Virus Culture Pending 10/31/17 0507: Urinalysis LIGHT H, Urine Color YEL, Urine Clarity CLEAR, Urine pH 7.0, Ur Specific [place] 1.020, Urine Protein TRACE H, Urine Ketones NEG, Urine Nitrite NEG, Urine Bilirubin NEG, Urine Urobilinogen 0.2, Ur Leukocyte Esterase NEG, Ur Microscopic SEDIMENT EXAMINED, Ur Epithelial Cells RARE, Urine Bacteria FEW H, Urine Hemoglobin NEG, Urine Glucose NEG 10/31/17 0348: Anion Gap 13, Estimated GFR > 60, BUN/Creatinine Ratio 16.0, Glucose 117 H, Lactic Acid 1.9, Calcium 9.6, Total Bilirubin 1.1, AST 21, ALT 43, Alkaline Phosphatase 87, Total Protein 7.5, Albumin 4.5, Globulin 3.0, Albumin/Globulin Ratio 1.5, CBC w Diff NO MAN DIFF REQ, RBC 4.95, MCV 95.4 H, MCH 31.6 H, MCHC 33.2, RDW 14.7 H, MPV 8.9, Gran % 91.0 H, Lymphocytes % 3.6 L, Monocytes % 5.2, Eosinophils % 0.2, Basophils % 0, Absolute Granulocytes 12.8 H, Absolute Lymphocytes 0.5 L, Absolute Monocytes 0.7 H, Absolute Eosinophils 0, Absolute Basophils 0 Microbiology 11/02 0822 EXTREMITIE: Culture & Sensitivity - ORD 11/02 0822 EXTREMITIE: Gram Stain - ORD 10/31 1430 BLOOD: Blood Culture - RES 10/31 1345 BLOOD: Blood Culture - CAN Cancelled: DUPLICATE\\ 10/31 1345 BLOOD: Blood Culture - CAN Cancelled: DUPLICATE 10/31 0930 BLOOD: Blood Culture - RES 10/31 0752 NASOPHARYN: Influenza Virus A & B Rapid Smear - COMP 10/31 0630 BLOOD: Blood Culture - CAN Cancelled: DUPLICATE 10/31 0507 URINE ROUT: Urine Culture - RES 02/18 0349 BLOOD: Blood Culture - RES 10/31 331 BLOOD: Blood Culture - CAN Cancelled: Quantity not sufficient for Aerobic blood culture bottle. PHYSICAL EXAM Last 24hrs of Vital Signs Vital Signs Date Time Temp Pulse Resp B/P B/P Pulse O2 O2 Flow FiO2 Mean Ox Delivery Rate 11/02 0620 97.6 71 18 138/70 96 Room Air 11/01 2248 98.8 83 18 132/80 95 Room Air 11/01 1508 98.8 89 18 130/80 95 Physical Exam General Appearance Alert, Oriented X3, Cooperative, No Acute Distress HEENT PERRLA Cardiovascular Regular Rate, Normal S1, Normal S2 Lungs Clear to Auscultation Extremities No Edema, left leg warm and red, left lower limb tender to touch Assessment/Plan Assessment: Patient is a 67y/o male waith past medical history of hypertention,chronic venous stasis ulcer,multiple skin grafts,left lower extremity dvt not on anticoagulation, double graft of Left LE 2w ago with Dr Manuel presents to ED complaining of fever 102.6,chills,pain 6/10 in his left lower extremity.Physical exam of showed an inflammed,red,warm and tender leg indicative of cellulitis. Patient met 3 criteria of sepsis with tachycardia, fever, leukocytosis with left shift amd was admitted to the General Med Floor. Problem List: Sepsis secondary to left lower extremity cellulitis Hypertention Plan: Sepsis secondary to Left lower extremity cellulitis: Patient met 3 criteria of sepsis with tachycardia, fever, leukocytosis with left shift on admission. -Monitor VS -Cefazolin 2g IV every 8 hours -Discontinue Ceftazidime -elevate left leg -swab/culture left foot wound to help with abx selection -place Aquacel Ag on all the wounds and wrap legs with a Kerlix to help with compression. -Further management of his right ankle ulcers per Vascular Surgery -appreciate Vasular surgery reccomendations -appreciate Infectious Disease reccomendations Hypertention: Continue home dose of Lasix 20mg daily Continue home dose of potassium 20 mEq daily Code:Full Diet:Regular DVT prophylaxis:Lovenox
--- NOTE | 2017-11-02 11:30 | PN- Infect Dx ---
Subjective Subjective: Afebrile. He feels improved with decreased pain and erythema of the left leg. He did report pruritus after the first dose of Cefazolin last night but this did not recur after his subsequent doses. Objective Last 24 Hrs of Vital Signs/I&O Vital Signs Date Time Temp Pulse Resp B/P B/P Pulse O2 O2 Flow FiO2 Mean Ox Delivery Rate 11/02 0620 97.6 71 18 138/70 96 Room Air 11/01 2248 98.8 83 18 132/80 95 Room Air 11/01 1508 98.8 89 18 130/80 95 Intake & Output 11/02 1600 11/02 0800 11/02 0000 Intake Total 690 500 Output Total 1300 400 Balance -610 100 Intake, IV 90 50 Intake, Oral 600 450 Output, Urine 1300 400 Physical Exam Other Physical Findings: He appears comfortable in no acute distress Skin no rash Lungs are clear Heart regular rhythm with no murmur Extremities decreased erythema of the left leg, still slightly warm and tender to palpation, with mild edema Results Last 24 Hours of Lab Results: No labs from today Last 24 Hours of Janes Results: Blood cultures 3 October 31 negative Urine culture October 31 negative Assessment/Plan ID Impression: Improving with temperatures now normal and white blood cell count decreased on Cefazolin, Day 3 of treatment for a left leg cellulitis. The pruritus reported after his first dose of Cefazolin is of nclear significance, though he does report allergies to various beta-lactams. As he appears to be stable, this can continue to be monitored. Suggestion: 1. Elevation of the left leg 2. Continue Cefazolin
--- NOTE | 2017-11-02 14:16 | Patient Discharge Instructions ---
See Addendum Discharge Instructions General Discharge Information You were seen/treated for: Sepsis Cellulitis Watch for these problems: Severe leg swelling, erythema, pain, lightheadedness, dizziness, chest pain, shortness of breathing or worsening of any other symptoms Special Instructions: Please follow with your PCP within one week of discharge. Please follow with you vascular surgeon within 1 week of discharge. Please take your medication as ordered to complete the course. Please come back to hospital if symptoms worsen. Diet Continue normal diet: Yes Activity Full Activity/No Limits: No Activity Self Limited: Yes Acute Coronary Syndrome Inclusion Criteria At DC or during hospital stay patient has or had the following: ACS DIAGNOSIS No Discharge Core Measures Meds if any: Prescribed or Continued at Discharge Meds if any: NOT Prescribed or Continued at Discharge Congestive Heart Failure Inclusion Criteria At DC or during hospital stay patient has or had the following: CHF DIAGNOSIS No Discharge Core Measures Meds if any: Prescribed or Continued at Discharge Meds if any: NOT Prescribed or Continued at Discharge Cerebrovascular accident Inclusion Criteria At DC or during hospital stay patient has or had the following: CVA/TIA Diagnosis No Discharge Core Measures Meds if any: Prescribed or Continued at Discharge Meds if any: NOT Prescribed or Continued at Discharge Venous thromboembolism Inclusion Criteria VTE Diagnosis No VTE Type NONE VTE Confirmed by (Test) NONE Discharge Core Measures - Per Current guidelines, there needs to be overlap - treatment for the first 5 days of Warfarin therapy. - If discharged on Warfarin prior to 5 days of - overlap therapy, the patient will need to be - assessed for post discharge needs including - *Post discharge parental anticoagulation - *Warfarin and/or parental anticoagulation education - *Follow up date to check INR post discharge At least 5 days overlap therapy as Inpatient No Meds if any: Prescribed or Continued at Discharge Note: Overlap Therapy is Warfarin and Anticoagulant Meds if any: NOT Prescribed or Continued at Discharge
[2017-11-02] MEDS ORDERED: KEFLEX500 M1 PO (14:20)
[2017-11-02 14:55] VITALS: BP 130/70
[2017-11-02 22:34] VITALS: BP 132/80
[2017-11-03 06:41] VITALS: BP 120/70
--- NOTE | 2017-11-03 08:25 | PN- Housestaff ---
Dottie Freitas MD,[facility] 11/03/17 0825: Subjective Follow-up For: Sepsis secondary to Leg cellulitis Subjective: Patient visited today, was lying in bed comfortably in no acute distress, was alert and oriented. Improved leg tenderness, minimal improvement in redness. He reported No fever or chills, no shortness of breathing, no chest pain, no other events. Patient's requested to be more cautious before discharging. Planned to change to PO cephalexin antibiotics upon discharge. family requested to stay for one more day, pal would be to discahrge patient tomorrow. Review of Systems Constitutional: Reports: see HPI. Objective Last 24 Hrs of Vital Signs/I&O Vital Signs Date Time Temp Pulse Resp B/P B/P Pulse O2 O2 Flow FiO2 Mean Ox Delivery Rate 11/03 0641 98.1 69 20 120/70 95 Room Air 11/02 2234 98.8 64 18 132/80 96 11/02 1455 97.8 86 18 130/70 97 Intake & Output 11/03 1600 11/03 0800 11/03 0000 Intake Total 220 610 Output Total Balance 220 610 Intake, IV 100 130 Intake, Oral 120 480 Physical Exam General Appearance: Alert, Oriented X3, Cooperative, No Acute Distress Skin: bilateral LE skin changes. Skin Temp/Moisture Exam: Warm/Dry Sepsis Skin Exam (color): Normal for Ethnicity HEENT: Atraumatic, EOMI, Mucous Membr. moist/pink Cardiovascular: Regular Rate, Normal S1, Normal S2 Lungs: Clear to Auscultation, Normal Air Movement Abdomen: Soft, No Tenderness Extremities: RLE pigmentation change, s/p skin graft surgery, wrapped. LLE, swelling and erythema, tenderness improved Current Medications: Current Medications Sig/Phillip Start time Last Medication Dose Route Stop Time Status Admin Acetaminophen 1,000 MG .STK-MED ONE 11/02 2100 DC IV 11/02 2101 Acetaminophen 1,000 MG .STK-MED ONE 11/02 1514 DC IV 11/02 1515 Acetaminophen 1,000 MG Q6P PRN 10/31 0830 11/03 N/A 1 UNIT IV 0733 Acetaminophen 650 MG Q6P PRN 10/31 0630 AC 11/01 PO 0628 Cefazolin Sodium 2 GM IQ8 11/01 1600 AC 11/03 N/A 1 UNIT IV 0822 Enoxaparin Sodium 40 MG DAILY 10/31 1000 AC 11/03 SC 0953 Furosemide 20 MG DAILY 10/31 1000 AC 11/03 PO 0953 Ibuprofen 600 MG .STK-MED ONE 11/02 1406 DC PO 11/02 1407 Ibuprofen 600 MG Q6P PRN 10/31 0630 AC 11/02 PO 1409 Lactobacillus 1 CAP BID 10/31 1000 AC 11/03 Acidophilus PO 0952 Oxycodone/ 2 TAB Q6P PRN 10/31 0630 AC 11/02 Acetaminophen PO 0015 Patient Medication 1 ED ONE ONE 11/02 1445 DC 11/02 Teaching ED 11/02 1446 1522 Patient Medication 1 ED ONE ONE 11/02 1445 DC 11/02 Teaching ED 11/02 1446 1523 Potassium Chloride 20 MEQ DAILY 10/31 1000 AC 11/03 PO 0953 Senna/Docusate Sodium 2 TAB DAILY 11/01 1630 AC 11/03 PO 0952 Last 24 Hrs of Lab/Janes Results Last 24 Hrs of Labs/Mics: Laboratory Tests 11/03/17 0736: Anion Gap 15, Estimated GFR > 60, BUN/Creatinine Ratio 17.1 Assessment/Plan Assessment: 66-year-old male presented with Fever, chills, feeling weak and right leg swelling and erythema s/p double graft of Left LE 2w ago with Dr Manuel h/o Pseudomonas, Serratia, MSSA in soft tissue cultures in Sep 2015, h/o sepsis in February 2017 with B Strep group G in blood discharged on oral amoxicillin PMH: HTN, chronic venous stasis ulcer, SSS S/P multiple skin grafts, left LE DVT in 2014 xeralto for 6m, not on anticoagulation, obesity, chronic cellulitis, h/o osteopenia on test depot VS at admission: MAXIMUM TEMPERATURE 103, blood pressure is stable, DE 122 LLE s/p skin graft in dressing, RLE redness and swelling, chronic ulcer in medial side Labs at admission: WBC 14.1, bands 7, ESR 18, BEP insignificant Imagings at admission: CXR: Central vascular prominence without overt edema. No focal consolidation. Foot/femur xray of left foot: No acute fracture. No lytic or sclerotic bony lesion or x-ray evidence of osteomyelitis. Patient was admitted to floor for management of following conditions: Sepsis secondary to left lower extremity cellulitis: At the time of admission, Patient met 3 criteria of sepsis with tachycardia, fever, leukocytosis with left shift. Patient was admitted to floor for managemnt. Doppler ultrasound was done to rule out DVT: 1. Limited evaluation because of patient body habitus and swelling in the lower extremities. Calf veins are not well visualized. No evidence for deep vein thrombosis is demonstrated. 2. Right popliteal cyst. Patient recieved 1 dose of IV vancomycin. Later initially IV Ceftazidime was administered and then changed to IV cefazoline. MRI of the foot was not indicated for osteomyelitis considering the superficial nature of the skin ulcer. With improvement IV cefazoline was changed to PO cephalexin antibiotics today with plan to complete a course of total of 10 days. -plan to discharge tomorrow History of hypertension, leg swelling: We continued home dose of Lasix 20 mg daily and potassium 20 mEq daily full Code Regular diet DVT prophylaxis with Lovenox Problem List: 1. Sepsis 2. Cellulitis of left lower extremity Pain Ratin Pain Location: None Pain Goal: Pain 4 or less Pain Plan: continue current plan Tomorrow's Labs & Rationales: possibly discharge Janki,Chuckotto 11/03/17 1103: Attending MD Review Statement Attending Statement Attending MD Statement: examined this patient, discuss w/resident/PA/MARKETING EDITOR, agreed w/resident/PA/MARKETING EDITOR, discussed with family, reviewed EMR data (avail), discussed with nursing, discussed with case mgmt, reviewed images, amended to note Attending Assessment/Plan: 66-year-old man with history of hypertension, chronic venous stasis ulcer, status post multiple skin graft, history of left lower extremity DVT on February 2015 resolved currently not on anticoagulation. Presented to the emergency department via EMS with his due to lower extremity pain and fever of 102.6 admitted for cellulitis of left lower extremity. Patient seen/examined bedside. Overall Slow clinical improvement. 1. Sepsis 2/2 left lower extremity cellulitis with improvement 2. Lower extremity pain that could be due to infection, No DVT 3. Chronic lower extremity venous stasis ulcers 4. hypertension Plan: -iv abx as per ID. -f/u cultures negative so far -Leg elevation -venous ulcers care as per vascular surgery. -Physical therapy consultation -Continue home medication -Pain pathway -Regular diet -DVT prophylaxis FOLLOW UP PCP in 1 week of discharge Vascular sugery in 1-2 weeks of discharge. Patient medically stable for discharge on PO antibiotics.
[2017-11-03] MEDS ORDERED: KEFLEX500 M1 PO ×2 (09:45→10:47)
--- NOTE | 2017-11-03 13:50 | Discharge Summary ---
Visit Information Visit Dates Admission Date: 10/31/17 Discharge Date: 11/04/17 Hospital Course Course Attending Physician: Zeina Shearer MD Primary Care Physician: Bee ESCOBEDO,Torey Camacho Hospital Course: 66-year-old male presented with Fever, chills, feeling weak and right leg swelling and erythema s/p double graft of Left LE 2w ago with Dr Manuel h/o Pseudomonas, Serratia, MSSA in soft tissue cultures in Sep 2015, h/o sepsis in February 2017 with B Strep group G in blood discharged on oral amoxicillin PMH: HTN, chronic venous stasis ulcer, SSS S/P multiple skin grafts, left LE DVT in 2014 xeralto for 6m, not on anticoagulation, obesity, chronic cellulitis, h/o osteopenia on test depot VS at admission: MAXIMUM TEMPERATURE 103, blood pressure is stable, ID 122 LLE s/p skin graft in dressing, RLE redness and swelling, chronic ulcer in medial side Labs at admission: WBC 14.1, bands 7, ESR 18, BEP insignificant Imagings at admission: CXR: Central vascular prominence without overt edema. No focal consolidation. Foot/femur xray of left foot: No acute fracture. No lytic or sclerotic bony lesion or x-ray evidence of osteomyelitis. Patient was admitted to floor for management of following conditions: Sepsis secondary to left lower extremity cellulitis: At the time of admission, Patient met 3 criteria of sepsis with tachycardia, fever, leukocytosis with left shift. Patient was admitted to floor. Doppler ultrasound was done to rule out DVT: 1. Limited evaluation because of patient body habitus and swelling in the lower extremities. Calf veins are not well visualized. No evidence for deep vein thrombosis is demonstrated. 2. Right popliteal cyst. Patient recieved 1 dose of IV vancomycin. Later initially IV Ceftazidime was administered and then changed to IV cefazoline. MRI was not indicated considering the superficial nature of the skin ulcer. - continue IV Cefazoline - Leg elevation - follow ID consult in a.m. - PT consult - pain control History of hypertension, leg swelling: We continued home dose of Lasix 20 mg daily and potassium 20 mEq daily with improvement of condition patient was discharged with recommendatins below with planning to complete 10days course of antibiotics with oral cephalexin. Allergies: Coded Allergies: bacitracin (Severe, HIVES 02/13/17) ceftriaxone (From ROCEPHIN) (Severe, HIVES 02/13/17) doxycycline (Severe, HIVES 02/13/17) erythromycin base (Severe, HIVES 02/13/17) gentamicin (Severe, HIVES 02/13/17) Uncoded Allergies: MEDS WHICH ENDS WITH "BASILIO" (Severe, HIVES 03/02/11) DETERGENTS (RASH 05/31/14) Significant Procedures: None Disposition Summary Disposition Principal Diagnosis: Sepsis secondary to leg cellulitis Additional Diagnosis: history of hypertansion, leg swelling Discharge Disposition: home or self care Discharge Instructions General Discharge Information Code Status: Full Code Patient's Diet: heart healthy Patient's Activity: self limited Follow-Up Instructions/Appts: Please follow with your PCP within one week of discharge. Please follow with you vascular surgeon within 1 week of discharge. Please take your medication as ordered to complete the course. Please come back to hospital if symptoms worsen. Please continue dressing as below and follow with wound care and Dr Lee: - Needs compression to both LE--3 layer - Keep aquacel Ag on wound bed Medications at Discharge Discharge Medications: Stop taking the following medications: Oxycodone HCl/Acetaminophen (Percocet 5-325 MG Tablet) 5 MG-325 MG TABLET ORAL EVERY SIX HOURS NEEDED as needed for Moderate to severe pain Qty = 10 Continue taking these medications: Furosemide (Furosemide) 20 MG TABLET 1 Tablet ORAL DAILY Days = 90 Comments: Last Taken: 11/04/17 Time: 8AM Potassium Chloride (Klor-Con M10) 10 MEQ TAB.ER.PRT 1 Tablet ORAL DAILY Days = 60 Comments: NOT GIVEN WHILE IN HOSPITAL Testosterone Cypionate (Testosterone Cypionate) 200 MG/ML VIAL 1 Milliliters INTRAMUSC EVERY 3 WEEKS Qty = 4 Comments: NOT GIVEN WHILE IN HOSPITAL Lactobac Cmb #3/Fos/Pantethine (Probiotic & Acidophilus Cap) 300MM-250 CAPSULE 1 Capsule ORAL TWICE DAILY Qty = 60 Instructions: . Comments: Last Taken: 11/04/17 Time: 9AM Ibuprofen (Ibuprofen) 800 MG TABLET 1 Tablet ORAL THREE TIMES DAILY Comments: NOT GIVEN Start taking the following new medications: Cephalexin (Keflex) 500 MG CAPSULE 2 Capsule ORAL THREE TIMES DAILY Qty = 42 No Refills Comments: NOT GIVEN IV KEFLEX GIVEN AT 8AM Copies To: Bee ESCOBEDO,Torey Camacho; Kaleb ESCOBEDO,Arvin Attending MD Review Statement Documenting Attending: Janki ESCOBEDO,Zeina Other Findings: 66-year-old man with history of hypertension, chronic venous stasis ulcer, status post multiple skin graft, history of left lower extremity DVT on February 2015 resolved currently not on anticoagulation. Presented to the emergency department via EMS with his due to lower extremity pain and fever of 102.6 admitted for cellulitis of left lower extremity. Patient seen/examined bedside. Overall Slow clinical improvement. 1. Sepsis 2/2 left lower extremity cellulitis with improvement 2. Lower extremity pain that could be due to infection, No DVT 3. Chronic lower extremity venous stasis ulcers 4. hypertension Plan: -iv abx as per ID. -f/u cultures negative so far -Leg elevation -venous ulcers care as per vascular surgery. -Physical therapy consultation -Continue home medication -Pain pathway -Regular diet -DVT prophylaxis FOLLOW UP PCP in 1 week of discharge Vascular sugery in 1-2 weeks of discharge. Patient medically stable for discharge on PO antibiotics.
[2017-11-03 13:55] VITALS: BP 130/80
--- NOTE | 2017-11-03 14:03 | PN- Infect Dx ---
Subjective Subjective: Afebrile. He feels improved. Objective Last 24 Hrs of Vital Signs/I&O Vital Signs Date Time Temp Pulse Resp B/P B/P Pulse O2 O2 Flow FiO2 Mean Ox Delivery Rate 11/03 1355 98.5 77 20 130/80 95 11/03 0641 98.1 69 20 120/70 95 Room Air 11/02 2234 98.8 64 18 132/80 96 11/02 1455 97.8 86 18 130/70 97 Intake & Output 11/03 1600 11/03 0800 11/03 0000 Intake Total 700 220 610 Output Total Balance 700 220 610 Intake, IV 100 130 Intake, Oral 700 120 480 Number 1 Bowel Movements Physical Exam Other Physical Findings: He appears comfortable in no acute distress Extremities decreased erythema and warmth of the right lower extremity, minimally tender to palpation, with persistent edema Results Last 24 Hours of Lab Results: Laboratory Tests 11/03 0736 Chemistry Sodium (137 - 145 mmol/L) 142 Potassium (3.5 - 5.1 mmol/L) 4.2 Chloride (98 - 107 mmol/L) 104 Carbon Dioxide (22 - 30 mmol/L) 24 Anion Gap (5 - 16) 15 BUN (9 - 20 mg/dL) 12 Creatinine (0.7 - 1.2 mg/dL) 0.7 Estimated GFR (>60 ml/min) > 60 BUN/Creatinine Ratio (7 - 25 %) 17.1 Last 24 Hours of Janes Results: Blood cultures October 31 negative Assessment/Plan ID Impression: Overall improved with temperatures remaining normal and with his last white blood cell count nearly normal on Cefazolin, Day 4 of treatment for a left leg cellulitis. Suggestion: 1. Continue elevation of the left leg 2. Continue Cefazolin but, upon discharge, can change to Keflex 1 gram po every 8 hours to complete a 10 day course of treatment
[2017-11-03 21:44] VITALS: BP 140/84
[2017-11-04 07:18] VITALS: BP 140/86
--- NOTE | 2017-11-04 07:33 | PN- Housestaff ---
Dottie Freitas MD,[facility] 11/04/17 0733: Subjective Follow-up For: Sepsis secondary to Leg cellulitis Subjective: Patient visited today, was lying in bed comfortably in no acute distress, was alert and oriented. Again Improved leg tenderness, as well as improvement in redness which is improvement compared to yesterday. He reported No fever or chills, no shortness of breathing, no chest pain, no other events. Patient was discharged on oral antibiotics. Review of Systems Constitutional: Reports: see HPI. Objective Last 24 Hrs of Vital Signs/I&O Vital Signs Date Time Temp Pulse Resp B/P B/P Pulse O2 O2 Flow FiO2 Mean Ox Delivery Rate 11/04 07 98.1 79 18 140/86 95 Room Air 11/03 2144 97.8 74 18 140/84 96 11/03 1355 98.5 77 20 130/80 95 Intake & Output 11/04 1600 11/04 0800 11/04 0000 Intake Total 435 800 Output Total 825 Balance -390 800 Intake, IV 75 Intake, Oral 360 800 Output, Urine 825 Physical Exam General Appearance: Alert, Oriented X3, Cooperative, No Acute Distress Skin: Bilateral LE skin changes, R LE increased ppigmentation, L LE redness improved, bilateral LE dressing in place Skin Temp/Moisture Exam: Warm/Dry Sepsis Skin Exam (color): Normal for Ethnicity HEENT: Atraumatic, EOMI, Mucous Membr. moist/pink Cardiovascular: Regular Rate, Normal S1, Normal S2 Lungs: Clear to Auscultation Abdomen: Soft, No Tenderness Neurological: Normal Speech Extremities: as noted above, still swelling of L LE Current Medications: Current Medications Sig/Phillip Start time Last Medication Dose Route Stop Time Status Admin Acetaminophen 1,000 MG .STK-MED ONE 11/03 1740 DC IV 11/03 1741 Acetaminophen 1,000 MG Q6P PRN 10/31 0830 AC 11/03 N/A 1 UNIT IV 1742 Acetaminophen 650 MG Q6P PRN 10/31 0630 AC 11/01 PO 0628 Cefazolin Sodium 2 GM IQ8 11/03 1600 AC 11/04 N/A 1 UNIT IV 0745 Cefazolin Sodium 2 GM IQ8 11/01 1600 DC 11/03 N/A 1 UNIT IV 0822 Cephalexin 1,000 MG TID 11/03 1600 CAN PO Enoxaparin Sodium 40 MG DAILY 10/31 1000 AC 11/04 SC 0746 Furosemide 20 MG DAILY 10/31 1000 AC 11/04 PO 0745 Ibuprofen 600 MG Q6P PRN 10/31 0630 AC 11/02 PO 1409 Lactobacillus 1 CAP BID 10/31 1000 AC 11/04 Acidophilus PO 0746 Oxycodone/ 2 TAB Q6P PRN 10/31 0630 AC 11/04 Acetaminophen PO 0950 Patient Medication 1 ED ONE ONE 11/04 944 DC 11/04 Teaching ED 11/04 945 1021 Potassium Chloride 20 MEQ DAILY 10/31 1000 AC 11/04 PO 0745 Senna/Docusate Sodium 2 TAB DAILY 11/01 1630 AC 11/04 PO 0746 Last 24 Hrs of Lab/Janes Results Last 24 Hrs of Labs/Mics: Laboratory Tests 11/04/17729: CBC w Diff NO MAN DIFF REQ, RBC 4.62 L, MCV 95.5 H, MCH 31.7 H, MCHC 33.2, RDW 14.7 H, MPV 9.0, Gran % 60.9, Lymphocytes % 25.3, Monocytes % 8.2, Eosinophils % 5.2 H, Basophils % 0.4, Absolute Granulocytes 3.3, Absolute Lymphocytes 1.4, Absolute Monocytes 0.4, Absolute Eosinophils 0.3, Absolute Basophils 0 Assessment/Plan Assessment: 66-year-old male presented with Fever, chills, feeling weak and right leg swelling and erythema s/p double graft of Left LE 2w ago with Dr Manuel h/o Pseudomonas, Serratia, MSSA in soft tissue cultures in Sep 2015, h/o sepsis in February 2017 with B Strep group G in blood discharged on oral amoxicillin PMH: HTN, chronic venous stasis ulcer, SSS S/P multiple skin grafts, left LE DVT in 2014 xeralto for 6m, not on anticoagulation, obesity, chronic cellulitis, h/o osteopenia on test depot VS at admission: MAXIMUM TEMPERATURE 103, blood pressure is stable, [place] 122 LLE s/p skin graft in dressing, RLE redness and swelling, chronic ulcer in medial side Labs at admission: WBC 14.1, bands 7, ESR 18, BEP insignificant Imagings at admission: CXR: Central vascular prominence without overt edema. No focal consolidation. Foot/femur xray of left foot: No acute fracture. No lytic or sclerotic bony lesion or x-ray evidence of osteomyelitis. Patient was admitted to floor for management of following conditions: Sepsis secondary to left lower extremity cellulitis: At the time of admission, Patient met 3 criteria of sepsis with tachycardia, fever, leukocytosis with left shift. Patient was admitted to floor for managemnt. Doppler ultrasound was done to rule out DVT: 1. Limited evaluation because of patient body habitus and swelling in the lower extremities. Calf veins are not well visualized. No evidence for deep vein thrombosis is demonstrated. 2. Right popliteal cyst. Patient recieved 1 dose of IV vancomycin. Later initially IV Ceftazidime was administered and then changed to IV cefazoline. MRI of the foot was not indicated for osteomyelitis considering the superficial nature of the skin ulcer. With improvement IV cefazoline was changed to PO cephalexin antibiotics today with plan to complete a course of total of 10 days. Please continue dressing as below and follow with wound care and Dr Lee: - Needs compression to both LE--3 layer - Keep aquacel Ag on wound bed History of hypertension, leg swelling: We continued home dose of Lasix 20 mg daily and potassium 20 mEq daily full Code Regular diet DVT prophylaxis with Lovenox With improvement patient was discharged with recommendations below: Please follow with your PCP within one week of discharge. Please follow with you vascular surgeon within 1 week of discharge. Please take your medication as ordered to complete the course. Please come back to hospital if symptoms worsen. Please continue dressing as below and follow with wound care and Dr Lee: - Needs compression to both LE--3 layer - Keep aquacel Ag on wound bed Problem List: 1. Cellulitis 2. Sepsis Pain Ratin Pain Location: None Pain Goal: Pain 4 or less Pain Plan: None Tomorrow's Labs & Rationales: DC today Discharge Plan Discharge Disposition: home Stable for Discharge? Yes Anticipated Discharge (Day): today Zeina Shearer 11/04/17 1239: Attending MD Review Statement Attending Statement Attending MD Statement: examined this patient, discuss w/resident/PA/CARE ATTENDANT, agreed w/resident/PA/CARE ATTENDANT, discussed with family, reviewed EMR data (avail), discussed with nursing, discussed with case mgmt, reviewed images, amended to note Attending Assessment/Plan: Patient with improving cellulitis. Patient medically stable for discharge with f /u o/p PCP in 3-5 days of discharge and vascular surgery Dr Manuel in 1-2 weeks of dsicharge.
[2017-11-04 08:41] LABS: ABSOLUTE BASOPHIL COUNT 0 /CUMM (0.0-0.2); ABSOLUTE EOSINOPHIL COUNT 0.3 /CUMM (0.0-0.7); ABSOLUTE GRANULOCYTE CT 3.3 /CUMM (1.4-6.5); ABSOLUTE LYMPH COUNT 1.4 /CUMM (1.2-3.4); ABSOLUTE MONOCYTE COUNT 0.4 /CUMM (0.10-0.60); BASOPHIL % 0.4 % (0.0-2.0); EOSINOPHIL % 5.2 % (0-5); GRANULOCYTE % 60.9 % (42.2-75.2); HEMATOCRIT 44.1 % (42-52); MEAN CORPUSCULAR HGB 31.7 PG (27.0-31.0); MEAN CORPUSCULAR HGB CONC 33.2 G/DL (33.0-37.0); MEAN CORPUSCULAR VOLUME 95.5 FL (80.0-94.0); PLATELET COUNT 238 /CUMM (130-400); RBC DISTRIBUTION WIDTH 14.7 % (11.5-14.5); RED BLOOD CELL CT 4.62 /CUMM (4.70-6.10)
--- NOTE | 2017-11-04 08:44 | PN- Vascular Surgery ---
Surgical Brief Attending Note Brief Attending Note: VASCULAR ATTENDING NOTE: Pt. seen and examined. States pain is improved but still erythema present. No fever PE: AF/VSS Ext: Lwgs wrapped, + erythema A/P CVI w. ulcer/cwllulitis 1.) Cont. ABX as per primary team 2.) May f/u with vasc. as outpt 3.) Needs compression to both LE--3 layer 4.) Keep aquacel Ag on wound bed 5.) High risk for readmission to due persistent erythema
[2017-11-04 09:05] LABS: WHITE BLOOD CELL COUNT 5.4 /CUMM (4.8-10.8)
[2017-11-04] MEDS ORDERED: KEFLEX500 M1 PO (11:26)
== END 2017-11-04 13:40 | DRG 872 ==
LOC: ERH 02:14 → 2NA 05:32 → ERHI 05:32 → ENRESERV 06:43 → ENTRNSPT 08:52 → 2NA 09:43 → CMPTRNSPT 10:01 → 2NA 11-01 07:46
PROVIDERS: Emergency Medicine; Internal Medicine Hematology & Oncology; Radiology Vascular & Interventional Radiology
DX: A41.9 Sepsis, unspecified organism (principal); L03.116 Cellulitis of left lower limb; M71.22 Synovial cyst of popliteal space [Baker], left knee; I87.2 Venous insufficiency (chronic) (peripheral); E66.9 Obesity, unspecified; I10 Essential (primary) hypertension; K21.9 Gastro-esophageal reflux disease without esophagitis; Z86.718 Personal history of other venous thrombosis and embolism; Z87.891 Personal history of nicotine dependence
CPT/HCPCS: 2NASP; 36415; 36592; 71045; 73552; 73630-LT; 81001; 82436; 87040; 87070; 87086; 87804; 87804-59; 93005; 93010; 93970; 96374; 96375; 97110-GO; 97116-GO; 97161-GP; 97530-GO; J0131; J0690; J0713; J1650; J3370; J7060

== ENCOUNTER 2017-11-22 09:49 | Inpatient (IN) | payer OTHER ==
[~2017-11-22] VITALS: Ht 193 cm; Wt 138.9 kg
[~2017-11-22 09:49] MED LIST changes: +IBUPROFEN800 M1 PO; +KEFLEX500 M1 PO
--- NOTE | 2017-11-22 09:57 | ED GENERAL ADULT ---
History of Present Illness General Chief Complaint: General Adult Stated Complaint: BIBA FEVER Source: patient, family Exam Limitations: poor historian Vital Signs & Intake/Output Vital Signs & Intake/Output Vital Signs Date Time Temp Pulse Resp B/P B/P Pulse O2 O2 Flow FiO2 Mean Ox Delivery Rate 11/23 0659 98.2 90 18 138/82 96 Room Air 11/22 2310 98.6 78 18 100/64 97 Room Air 11/22 1908 99.9 11/22 1809 101.6 11/22 1611 99.1 74 18 110/70 98 11/22 1426 103 16 105/69 95 Room Air 11/22 1350 99.0 80 20 100 Room Air 11/22 1303 99.2 88 105/73 ED Intake and Output 11/23 0000 11/22 1200 Intake Total 4350 Output Total 550 Balance 3800 Intake, IV 3650 Intake, Oral 700 Output, Urine 550 Patient 310 lb 300 lb Weight Weight Reported by Patient Measurement Method Allergies Coded Allergies: bacitracin (Severe, HIVES 02/13/17) ceftriaxone (From ROCEPHIN) (Severe, HIVES 02/13/17) doxycycline (Severe, HIVES 02/13/17) erythromycin base (Severe, HIVES 02/13/17) gentamicin (Severe, HIVES 02/13/17) Uncoded Allergies: MEDS WHICH ENDS WITH "BASILIO" (Severe, HIVES 03/02/11) DETERGENTS (RASH 05/31/14) Triage Nurses Notes Reviewed? yes Onset: Abrupt Duration: hour(s): Timing: remote history HPI: 11/22/17 11:30 AM 67-year-old male presents to the emergency department by ambulance for severe weakness, lethargy, and shaking chills. According to the patient's he was doing well until the past 24 hours when he developed rigors and shaking chills. She says that he had a fever of 104. She says that he has severe peripheral vascular disease and is followed at the wound center by Dr. Manuel. He does not have diabetes according to her. (Augie Odom DO) Reconcile Medications Furosemide 20 MG TABLET 1 TAB PO DAILY fluid overload (Reported) Potassium Chloride (Klor-Con M10) 10 MEQ TAB.ER.PRT 2 TAB PO DAILY supplements (Reported) Testosterone Cypionate 200 MG/ML VIAL 1 ML IM Q 3 WEEKS HRT (Reported) (Naa ESCOBEDO,Astrid) Past History Travel History Traveled to [place] past 21 day No Medical History Any Pertinent Medical History? 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 No (Augie Odom DO) Review of Systems Review of Systems Constitutional: Reports: chills, diaphoresis, fever. EENTM: Reports: no symptoms. Respiratory: Denies: short of breath. Cardiovascular: Denies: chest pain. GI: Denies: abdominal pain. Genitourinary: Reports: no symptoms. Musculoskeletal: Reports: see HPI. Skin: Denies: rash. Neurological/Psychological: Reports: anxiety, confusion. Hematologic/Endocrine: Reports: no symptoms. Immunologic/Allergic: Reports: no symptoms. (Augie Odom DO) Physical Exam Physical Exam General Appearance: alert, awake, anxious, moderate distress Head: atraumatic, normal appearance Eyes: Bilateral: normal appearance, PERRL, EOMI. Ears, Nose, Throat: normal pharynx, normal ENT inspection Neck: normal inspection, supple Respiratory: decreased breath sounds Cardiovascular: TACHYCARDIA Peripheral Pulses: 2+ dorsalis pedis (R), 2+ dorsalis pedis (L) Gastrointestinal: non-tender Back: decreased range of motion Extremities: pedal edema, swelling, tenderness Neurologic/Psych: awake, alert, oriented x 3 Skin: rash Comments: The patient is a large man. He has significant lower extremity pitting edema with stasis dermatitis bilaterally. He has bilateral malleoli or ulcers on the right. A culture was sent of the medial malleolus ulcer which is larger. There is sadia pus coming from the right medial malleolus ulcer, that is foul- smelling. He also has an ulceration on the lateral aspect of the left ankle. The dressings were changed. 11/22/17 The patient was signed out to Dr. Jacome at 11:30 AM. Core Measures ACS in differential dx? No CVA/TIA Diagnosis: No Sepsis Present: No Sepsis Focused Exam Completed? No (Lei MUÑOZ,Augie Webster) Progress Differential Diagnoses I considered the following diagnoses in my evaluation of the patient: [ Cellulitis, necrotizing fasciitis, osteomyelitis, infected ulceration, sepsis] Plan of Care: Orders Procedure Date/time Status Precautions 11/23 1021 Active CBC WITHOUT DIFFERENTIAL 11/23 0600 Complete BASIC ELECTROLYTES PLUS BUN&CR 11/23 0600 Complete Heart Healthy Diet 11/22 D Active Skin/Pressure Ulcer Assess (Sk 11/22 2108 Active LACTIC ACID 11/22 1815 Complete Weight 11/22 1548 Active Vital Signs 11/22 1548 Active Teach/Educate 11/22 1548 Active Pain Treatment and Response 11/22 1548 Active Nutritional Intake, Monitor 11/22 1548 Active Isolation 11/22 1548 Active Intake & Output 11/22 1548 Active Patient Care Conference 11/22 1548 Active Activity/Ambulation 11/22 1548 Active Intake & Output 11/22 1457 Active Pathway - chart 11/22 1442 Active Patient Data 11/22 1319 Active ED Holding Orders 11/22 1242 Active Admit to inpatient 11/22 1242 Active Vital Signs 11/22 1242 Active Code Status 11/22 1242 Active House Staff 11/22 UNK Active Wound Care/Dressing 11/22 UNK Active VTE Mechanical Prophylaxis 11/22 UNK Active PHYSICIAN CONSULT 11/22 UNK Active Current Medications Sig/Phillip Start time Last Medication Dose Stop Time Status Admin Acetaminophen 975 MG Q8P PRN 11/22 1815 AC 11/23 (Tylenol) 0815 Ampicillin Sodium/ 3,000 MG Q6 11/22 1800 AC 11/23 Sulbactam Sodium 0604 (Unasyn) Sodium Chloride 100 ML (Normal Saline 0.9%) Sodium Chloride 1,000 ML Q6H 11/22 1700 AC 11/23 (Normal Saline 0.9%) 0306 Enoxaparin Sodium 40 MG DAILY 11/22 1600 AC 11/23 (Lovenox) 0810 Ibuprofen 600 MG Q6P PRN 11/22 1445 AC (Motrin) Morphine Sulfate 2 MG Q6P PRN 11/22 1445 AC 11/22 (MORPHINE SULFATE) 1543 Sodium Chloride 4,082.34 ML ONCE 11/22 1015 AC 11/22 (Normal Saline 0.9%) 1130 Laboratory Tests 11/23/17 0747: Anion Gap 8, Estimated GFR > 60, BUN/Creatinine Ratio 18.8, CBC w Diff NO MAN DIFF REQ, RBC 4.31 L, MCV 95.0 H, MCH 31.8 H, MCHC 33.5, RDW 14.3, MPV 9.1, Gran % 81.4 H, Lymphocytes % 11.9 L, Monocytes % 6.2, Eosinophils % 0.1, Basophils % 0.4, Absolute Granulocytes 7.8 H, Absolute Lymphocytes 1.1 L, Absolute Monocytes 0.6, Absolute Eosinophils 0, Absolute Basophils 0 11/22/17 1841: Lactic Acid 1.3 11/22/17 1503: Urine Color YEL, Urine Clarity CLEAR, Urine pH 6.0, Ur Specific [place] 1.015, Urine Protein TRACE H, Urine Ketones NEG, Urine Nitrite NEG, Urine Bilirubin NEG, Urine Urobilinogen 0.2, Ur Leukocyte Esterase NEG, Ur Microscopic SEDIMENT EXAMINED, Urine RBC RARE, Urine WBC 1-3 H, Ur Epithelial Cells FEW, Urine Mucus MOD H, Urine Hemoglobin NEG, Urine Glucose NEG 11/22/17 1500: Lactic Acid 2.1 11/22/17 1218: CBC w Diff MAN DIFF ORDERED, RBC 4.95, MCV 94.7 H, MCH 31.5 H, MCHC 33.3, RDW 14.1, MPV 8.5, Gran % 91.0 H, Lymphocytes % 3.7 L, Monocytes % 5.1, Eosinophils % 0.1, Basophils % 0.1, Absolute Granulocytes 12.7 H, Segmented Neutrophils 89 H, Band Neutrophils 4, Absolute Lymphocytes 0.5 L, Lymphocytes 2 L, Monocytes 5, Absolute Monocytes 0.7 H, Absolute Eosinophils 0, Absolute Basophils 0, Platelet Estimate ADEQUATE, Normocytic RBCs VERIFIED, Normochromic RBCs VERIFIED 11:29 am patient signed out to me by Dr. Odom, pending labs, admission. XRAY SHOWS NO EVIDENCE OF OSTEOMYELITIS. VASCULAR DR JOSHUA ZAMUDIO. D/W DR MOSS FOR ADMISSION. (Naa MD,Astrid) Initial ED EKG: nonspecific ST T wave chg, SINIUS TACHYCARDIA (Augie Odom DO) Diagnostic Imaging: Viewed by Me: Radiology Read. Discussed w/RAD: Radiology Read. Radiology Impression: PATIENT: MATHEW SUH PRESENT AGE: 67 PATIENT ACCOUNT NO: [id number] : 51 LOCATION: [facility] ORDERING PHYSICIAN: Augie Odom DO SERVICE DATE: 11/22/17 EXAM TYPE: RAD - [id number], RIGHT EXAMINATION: XR TIBIA AND FIBULA, RIGHT CLINICAL INFORMATION: Cellulitis and ulcers bilaterally. Rule out gas or osteomyelitis. COMPARISON: 02/13/2017 TECHNIQUE: AP and lateral views of the right tibia and fibula were obtained. FINDINGS: Soft tissue ulceration seen overlying both the medial and lateral malleolus of the right ankle. There is soft tissue swelling. Beyond the soft tissue gas associated with the medial ulcer, there is no additional soft tissue gas noted. No erosive osseous changes. No fracture or cortical disruption. Alignment is maintained at the knee and ankle. IMPRESSION: Soft tissue ulceration overlying both the medial and lateral malleoli of the right ankle. No additional soft tissue gas or erosive osseous changes to suggest osteomyelitis. DICTATED BY: Nehemiah Brown MD DATE/TIME DICTATED:11/22/171252 MANAGER OF SECURITY:ARACELI DATE/TIME TRANSCRIBED:11/22/171252 CONFIDENTIAL, DO NOT COPY WITHOUT APPROPRIATE AUTHORIZATION. <Electronically signed in Other Vendor System> SIGNED BY: Nehemiah Brown MD 11/22/17 1258 (Astrid Jacome MD) Departure Departure Disposition: STILL A PATIENT Condition: Stable Clinical Impression Primary Impression: Infected pressure ulcer Secondary Impressions: Peripheral vascular disease Referrals: Bee ESCOBEDO,Torey Camacho (PCP/Family) Departure Forms: Customer Survey General Discharge Information (Augie Odom DO) Departure Time of Disposition: 1244 Admission Note Spoke With: Eris Moss MD Documentation of Exam: Documentation of any treatments & extenuating circumstances including Concerns Regarding Discharge (functional status, medication knowledge or non-compliance, living conditions, etc.) that warrant an admission rather than observation: [ ADMISSION, IV ABX, WOUND CARE, VASCULAR CONSULTATION, F/U BLOOD AND WOUND CULTURES, PAIN CONTROL, ANTIPYRETICS] (Naa ESCOBEDO,Astrid) Critical Care Note Critical Care Note Critical Care Time: 30-74 min (Augie Odom DO)
[2017-11-22 12:34] LABS: ABSOLUTE BASOPHIL COUNT 0 /CUMM (0.0-0.2); ABSOLUTE EOSINOPHIL COUNT 0 /CUMM (0.0-0.7); ABSOLUTE GRANULOCYTE CT 12.7 /CUMM (1.4-6.5); ABSOLUTE LYMPH COUNT 0.5 /CUMM (1.2-3.4); ABSOLUTE MONOCYTE COUNT 0.7 /CUMM (0.10-0.60); BASOPHIL % 0.1 % (0.0-2.0); EOSINOPHIL % 0.1 % (0-5); HEMATOCRIT 46.9 % (42-52); MEAN CORPUSCULAR HGB 31.5 PG (27.0-31.0); MEAN CORPUSCULAR HGB CONC 33.3 G/DL (33.0-37.0); MEAN CORPUSCULAR VOLUME 94.7 FL (80.0-94.0); MEAN PLATELET VOLUME 8.5 FL (7.4-10.4); PLATELET COUNT 225 /CUMM (130-400); RBC DISTRIBUTION WIDTH 14.1 % (11.5-14.5); RED BLOOD CELL CT 4.95 /CUMM (4.70-6.10)
--- NOTE | 2017-11-22 12:58 | RADIOLOGY REPORT ---
EXAMINATION: XR TIBIA AND FIBULA, RIGHT CLINICAL INFORMATION: Cellulitis and ulcers bilaterally. Rule out gas or osteomyelitis. COMPARISON: 02/13/2017 TECHNIQUE: AP and lateral views of the right tibia and fibula were obtained. FINDINGS: Soft tissue ulceration seen overlying both the medial and lateral malleolus of the right ankle. There is soft tissue swelling. Beyond the soft tissue gas associated with the medial ulcer, there is no additional soft tissue gas noted. No erosive osseous changes. No fracture or cortical disruption. Alignment is maintained at the knee and ankle. IMPRESSION: Soft tissue ulceration overlying both the medial and lateral malleoli of the right ankle. No additional soft tissue gas or erosive osseous changes to suggest osteomyelitis.
--- NOTE | 2017-11-22 13:23 | History & Physical ---
Ignacio Gruber MD 11/22/17 1322: General Information and HPI History of Present Illness: Mr. Silverman is a 67-year-old male with past medical history of venous insufficiency followed by Dr. Manuel, DVT in the left leg 3-4 years ago, obesity, and recurrent cellulitis with history of Pseudomonas, MSSA, and Serratia who came in for pain in his legs. The patient was recently admitted here for cellulitis. After going home, he felt well until yesterday when he started getting increased pain in his legs. He especially had pain in his right leg described as a heavy feeling and sharp, shooting pains with numbness. He had several episodes where he felt like he was going to fall down and actually did fall onto his bed due to the pain and weakness in his legs. He is additionally complaining of fevers and shaking chills. He denies any chest pain, shortness of breath, nausea, vomiting, diarrhea, abdominal pain, or dysuria. The patient is a former smoker and has 2 alcoholic drinks per day. He denies recreational drug use. Allergies/Medications Allergies: Coded Allergies: bacitracin (Severe, HIVES 02/13/17) ceftriaxone (From ROCEPHIN) (Severe, HIVES 02/13/17) doxycycline (Severe, HIVES 02/13/17) erythromycin base (Severe, HIVES 02/13/17) gentamicin (Severe, HIVES 02/13/17) Uncoded Allergies: MEDS WHICH ENDS WITH "BASILIO" (Severe, HIVES 03/02/11) DETERGENTS (RASH 05/31/14) Past History Travel History Traveled to [place] past 21 day No Medical History Neurological: NONE EENT: NONE Cardiovascular: chronic venous insuff Respiratory: NONE Gastrointestinal: GERD Hepatic: NONE Renal: NONE Musculoskeletal: osteoporosis Psychiatric: NONE Endocrine: NONE Blood Disorders: DVT (right leg) Cancer(s): NONE 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 Ambulation: independent IADLs Independent: shopping, housework, finances, food prep, telephone, transportation , medication admin. Review of Systems Review of Systems Constitutional: Reports: no symptoms. EENTM: Reports: no symptoms. Cardiovascular: Reports: no symptoms. Respiratory: Reports: no symptoms. GI: Reports: no symptoms. Genitourinary: Reports: no symptoms. Musculoskeletal: Reports: see HPI. Skin: Reports: no symptoms. Neurological/Psychological: Reports: no symptoms. Hematologic/Endocrine: Reports: no symptoms. Immunologic/Allergic: Reports: no symptoms. All Other Systems: Reviewed and Negative Exam & Diagnostic Data Last 24 Hrs of Vital Signs/I&O Vital Signs Date Time Temp Pulse Resp B/P B/P Pulse O2 O2 Flow FiO2 Mean Ox Delivery Rate 11/22 1426 103 16 105/69 95 Room Air 11/22 1350 99.0 80 20 100 Room Air 11/22 1303 99.2 88 105/73 11/22 1206 100.6 11/22 1206 100.6 11/22 1136 101.3 90 22 120/66 11/22 1129 100.1 11/22 0954 100.1 84 16 119/68 96 Room Air Intake & Output 11/22 1600 11/22 0800 11/22 0000 Intake Total 2150 Output Total 250 Balance 1900 Intake, IV 1750 Intake, Oral 400 Output, Urine 250 Patient 136.078 kg Weight Weight Reported by Patient Measurement Method Physical Exam General Appearance Alert, Oriented X3, Cooperative, No Acute Distress HEENT Atraumatic, PERRLA, EOMI, Mucous Membr. moist/pink Cardiovascular Regular Rate, Normal S1, Normal S2 Lungs Clear to Auscultation Abdomen Normal Bowel Sounds, Soft, No Tenderness Extremities Right ankle with medial and lateral ulcerations with erythema and no dischagre. Pulses difficult to feel bilaterally with skin changes consistent with venous staiss dermatitis. Last 24 Hrs of Labs/Janes: Laboratory Tests 11/22/17 1503: Urine Color Pending, Urine Clarity Pending, Urine pH Pending, Ur Specific [place] Pending, Urine Protein Pending, Urine Ketones Pending, Urine Nitrite Pending, Urine Bilirubin Pending, Urine Urobilinogen Pending, Ur Leukocyte Esterase Pending, Ur Microscopic Pending, Urine Hemoglobin Pending, Urine Glucose Pending 11/22/17 1218: CBC w Diff MAN DIFF ORDERED, RBC 4.95, MCV 94.7 H, MCH 31.5 H, MCHC 33.3, RDW 14.1, MPV 8.5, Gran % 91.0 H, Lymphocytes % 3.7 L, Monocytes % 5.1, Eosinophils % 0.1, Basophils % 0.1, Absolute Granulocytes 12.7 H, Segmented Neutrophils 89 H, Band Neutrophils 4, Absolute Lymphocytes 0.5 L, Lymphocytes 2 L, Monocytes 5, Absolute Monocytes 0.7 H, Absolute Eosinophils 0, Absolute Basophils 0, Platelet Estimate ADEQUATE, Normocytic RBCs VERIFIED, Normochromic RBCs VERIFIED 11/22/17 1040: Anion Gap 17 H, Estimated GFR > 60, BUN/Creatinine Ratio 16.7, Glucose 120 H, Lactic Acid 3.0 H, Calcium 10.1, Total Bilirubin 0.8, AST 22, ALT 43, Alkaline Phosphatase 96, Troponin I < 0.01, Total Protein 8.5 H, Albumin 4.7, Globulin 3.8, Albumin/Globulin Ratio 1.2 Microbiology 11/22 1130 EXTREMITIE: Culture & Sensitivity - RECD 11/22 1130 EXTREMITIE: Gram Stain - RECD 11/22 1040 BLOOD: Blood Culture - RECD 11/22 1006 BLOOD: Blood Culture - RECD Assessment/Plan Assessment: Mr. Silverman is a 67-year-old male with past medical history of venous insufficiency followed by Dr. Manuel, DVT in the left leg 3-4 years ago, obesity, and recurrent cellulitis with history of Pseudomonas, MSSA, and Serratia who came in for pain in his legs. On presentation, vital signs were T1 100.1, HR 84, RR 16, BP 119/68, saturating 96% on room air. Temperature increased to 101.3. Laboratories were significant for what blood cell count 14.0, 4 bands, bicarbonate 21, lactic acid 3.0 with negative troponin. Tibia/fibula x-ray showed soft tissue ulceration with no evidence of osteomyelitis. He was treated with 1 L normal saline, ketorolac, cemented, and ampicillin/sulbactam in the emergency room. He'll be admitted to general medicine and treated for the following problems: 1. Sepsis with lactic acidosis 2. Cellulitis #Cellulitis: Patient presents with fever and leukocytosis with lactic acidosis. SOFA score 0. He has history of growing Pseudomonas, MSSA, and Serratia. -Ceftazidine -Appreciate infectious disease recommendations -Vascular and wound consult -Trend lactic acidosis -IV fluid resuscitation -Follow cultures #Chronic medical problems: -Hold furosemide/potassium supplement DVT prophylaxis with enoxaparin Regular diet Full code As Ranked By This Provider Problem List: 1. Cellulitis Core Measures/Misc (05/30) Cerebrovascular Accident CVA/TIA Diagnosis: No Sepsis (View protocol) Sepsis Present: Yes Austin Gongora MD 11/22/17 1438: Attending MD Review Statement Attending Statement Attending MD Statement: examined this patient, discuss w/resident/PA/EXTRACTION MACHINE OPERATOR, agreed w/resident/PA/EXTRACTION MACHINE OPERATOR, reviewed EMR data (avail) Attending Assessment/Plan: 67M PMH hypertension, chronic venous stasis ulcer, status post multiple skin graft, history of left lower extremity DVT on February 2015 currently not on anticoagulation admitted for sepsis secondary to LLE cellulitis following skin graft, with history of cellulitis growing Serratia and Pseudomonas. Febrile 104 in ED, appears ill, multiple leg ulcers with erythema, tachycardic, WBC 14, lactate 3. 1. Sepsis secondary to LLE cellulitis 2. History of skin graft Plan - Admit to general medicine - Continue Ceftazidime - ID, vascular, and wound consults - Leg elevation - Continue home medications - Follow cultures - DVT PPx Sussy ESCOBEDOGavi 11/22/17 1522: General Information and HPI Allergies/Medications Home Med list Acetaminophen (Tylenol) 325 MG TABLET 975 MG PO Q8P PRN Fever/Pain Amoxicillin/Clavulanate Potass (Amox-Clav 875-125 MG Tablet) 875 MG-125 MG TABLET 875 MG PO Q12 cellulitus Furosemide 20 MG TABLET 1 TAB PO DAILY fluid overload (Reported) Potassium Chloride (Klor-Con M10) 10 MEQ TAB.ER.PRT 2 TAB PO DAILY supplements (Reported) Testosterone Cypionate 200 MG/ML VIAL 1 ML IM Q 3 WEEKS HRT (Reported) Core Measures/Misc (05/30) Acute Coronary Syndrome ACS Diagnosis: No Congestive Heart Failure Congestive Heart Failure Diagnosis No VTE (View Protocol) VTE Risk Factors Acute Medical Illness No Mechanical VTE Prophylaxis d/t N/A MechProphylax Ordered No VTE Pharm Prophylaxis d/t NA PharmProphylax ordered Resident Review Statement Resident Statement: examined this patient, discussed with internet retailer, agreed with internet retailer, discussed with family, discussed with nursing Other Findings: 66 yo m with PMH of HTN, chronic venous stasis ulcer, S/P multiple skin grafts, left LE DVT in 2014 on xarelto for 6 months; no longer on anticoagulation, obesity, chronic cellulitis, osteopenia who presents with worsening pain in his right lower extremity and chronic draining ulcers on both right and left lower extremities. Right ankle is red, warm and tender. Assessment 1. Sepsis 2/2 Rt LE cellulitis 2. Chronic/non-healing bilateral LE wounds 3. Chronic venous statis/Stasis dermatitis 4. Varicose veins Plan Admit to general medicine floor Obtain blood cultures 2 Wound cultures obtained in the ER follow-up culture reports Infectious disease consult for antibiotic recommendations Wound consult for wound care recommendation IVF NS Continue his impt home medictaions DVT ppx with SC lovenox Heart healthy diet FC
[2017-11-22 16:11] VITALS: BP 110/70
--- NOTE | 2017-11-22 17:59 | Cons- Infect Disease ---
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 and the more recent onset of a right lateral malleolar ulcer, status post skin grafts to both ulcers 5 weeks prior to admission, hospitalized 3 weeks prior to admission with a left leg cellulitis, treated with Cefazolin and discharged on Keflex to complete a 10 day course of treatment, status post debridement of both ulcers by Vascular surgery 6 days prior to admission, with compression dressings placed following the debridement, admitted on November 22 with persistent pain in the right leg since the procedure, associated with foul-smelling drainage through the dressing, and the acute onset of fevers, chills and weakness. On admission he was febrile to 101.3. Laboratory data revealed a white blood cell count of 14,000, BUN/creatinine 15 and 0.9, lactic acid 3.0, with normal liver enzymes. Urinalysis rare RBCs/1-3 WBCs. X-ray of the right tibia/fibula revealed soft tissue ulcerations over both medial and lateral malleoli with no soft tissue gas or erosive changes to suggest osteomyelitis. He was given a dose of Unasyn in the emergency room. Allergies/Medications Allergies: Coded Allergies: bacitracin (Severe, HIVES 02/13/17) ceftriaxone (From ROCEPHIN) (Severe, HIVES 02/13/17) doxycycline (Severe, HIVES 02/13/17) erythromycin base (Severe, HIVES 02/13/17) gentamicin (Severe, HIVES 02/13/17) Uncoded Allergies: MEDS WHICH ENDS WITH "BASILIO" (Severe, HIVES 03/02/11) DETERGENTS (RASH 05/31/14) Home Med List: Furosemide 20 MG TABLET 1 TAB PO DAILY fluid overload (Reported) Potassium Chloride (Klor-Con M10) 10 MEQ TAB.ER.PRT 2 TAB PO DAILY supplements (Reported) Testosterone Cypionate 200 MG/ML VIAL 1 ML IM Q 3 WEEKS HRT (Reported) Past History Travel History Traveled to [place] past 21 day No Medical History Neurological: NONE EENT: NONE Cardiovascular: chronic venous insuff Respiratory: NONE Gastrointestinal: GERD Hepatic: NONE Renal: NONE Musculoskeletal: osteoporosis Psychiatric: NONE Endocrine: NONE Blood Disorders: DVT (right leg) Cancer(s): NONE 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 Home Services at Home: None Smoking Status: Never Smoked Functional Ability ADLs Independent: dressing, eating, toileting, bathing. Ambulation: independent IADLs Independent: shopping, housework, finances, food prep, telephone, transportation , medication admin. Review of Systems Review of Systems All Other Systems: Reviewed and Negative Exam & Diagnostic Data Last 24 Hrs of Vital Signs/I&O Vital Signs Date Time Temp Pulse Resp B/P B/P Pulse O2 O2 Flow FiO2 Mean Ox Delivery Rate 11/22 1611 99.1 74 18 110/70 98 11/22 1426 103 16 105/69 95 Room Air 11/22 1350 99.0 80 20 100 Room Air 11/22 1303 99.2 88 105/73 11/22 1206 100.6 11/22 1206 100.6 11/22 1136 101.3 90 22 120/66 11/22 1129 100.1 11/22 0954 100.1 84 16 119/68 96 Room Air Intake & Output 11/22 1600 11/22 0800 11/22 0000 Intake Total 2150 Output Total 250 Balance 1900 Intake, IV 1750 Intake, Oral 400 Output, Urine 250 Patient 310 lb Weight Weight Reported by Patient Measurement Method Physical Exam Other Physical Findings: MAXIMUM TEMPERATURE 101.3. He is awake and alert in no acute distress. Skin warm, with no rash. HEENT negative. Neck is supple with no adenopathy. Lungs are clear. Heart regular rhythm with no murmur. Abdomen is obese, soft, nontender with positive bowel sounds. Back no CVA tenderness. Extremities left leg with chronic venous stasis changes, with no erythema; right leg with mild erythema over the anterior tibial aspect, nontender, with bilateral malleolar ulcers clean, with no surrounding erythema or drainage; pulses 2+ and equal. Neuro is without focality. Last 24 Hours of Lab Results: Laboratory Tests 11/22 11/22 1503 1500 Chemistry Lactic Acid (0.7 - 2.1 mmol/L) 2.1 Urines Urine Color (YEL,AMB,STR) YEL Urine Clarity (CLEAR) CLEAR Urine pH (5.0 - 8.0) 6.0 Ur Specific [place] (1.001 - 1.035) 1.015 Urine Protein (NEG,<30 MG/DL) TRACE H Urine Ketones (NEG) NEG Urine Nitrite (NEG) NEG Urine Bilirubin (NEG) NEG Urine Urobilinogen (0.1 - 1.0 EU/dl) 0.2 Ur Leukocyte Esterase (NEG) NEG Ur Microscopic SEDIMENT EXAMINED Urine RBC (0 - 5 /HPF) RARE Urine WBC (0 - 2 /HPF) 1-3 H Ur Epithelial Cells (NONE,FEW) FEW Urine Mucus (FEW,NONE) MOD H Urine Hemoglobin (NEG) NEG Urine Glucose (N MG/DL) NEG 11/22 11/22 1218 1040 Chemistry Sodium (137 - 145 mmol/L) 142 Potassium (3.5 - 5.1 mmol/L) 4.4 Chloride (98 - 107 mmol/L) 105 Carbon Dioxide (22 - 30 mmol/L) 21 L Anion Gap (5 - 16) 17 H BUN (9 - 20 mg/dL) 15 Creatinine (0.7 - 1.2 mg/dL) 0.9 Estimated GFR (>60 ml/min) > 60 BUN/Creatinine Ratio (7 - 25 %) 16.7 Glucose (65 - 99 mg/dL) 120 H Lactic Acid (0.7 - 2.1 mmol/L) 3.0 H Calcium (8.4 - 10.2 mg/dL) 10.1 Total Bilirubin (0.2 - 1.3 mg/dL) 0.8 AST (17 - 59 U/L) 22 ALT (21 - 72 U/L) 43 Alkaline Phosphatase (< 127 U/L) 96 Troponin I (<0.11 ng/ml) < 0.01 Total Protein (6.3 - 8.2 g/dL) 8.5 H Albumin (3.5 - 5.0 g/dL) 4.7 Globulin (1.9 - 4.2 gm/dL) 3.8 Albumin/Globulin Ratio (1.1 - 2.2 %) 1.2 Hematology CBC w Diff MAN DIFF ORDERED WBC (4.8 - 10.8 /CUMM) 14.0 H RBC (4.70 - 6.10 /CUMM) 4.95 Hgb (14.0 - 18.0 G/DL) 15.6 Hct (42 - 52 %) 46.9 MCV (80.0 - 94.0 FL) 94.7 H MCH (27.0 - 31.0 PG) 31.5 H MCHC (33.0 - 37.0 G/DL) 33.3 RDW (11.5 - 14.5 %) 14.1 Plt Count (130 - 400 /CUMM) 225 MPV (7.4 - 10.4 FL) 8.5 Gran % (42.2 - 75.2 %) 91.0 H Lymphocytes % (20.5 - 51.1 %) 3.7 L Monocytes % (1.7 - 9.3 %) 5.1 Eosinophils % (0 - 5 %) 0.1 Basophils % (0.0 - 2.0 %) 0.1 Absolute Granulocytes (1.4 - 6.5 /CUMM) 12.7 H Segmented Neutrophils (42.2 - 75.2 %) 89 H Band Neutrophils (0.0 - 5.0 %) 4 Absolute Lymphocytes (1.2 - 3.4 /CUMM) 0.5 L Lymphocytes (20.5 - 51.1 %) 2 L Monocytes (1.7 - 9.3 %) 5 Absolute Monocytes (0.10 - 0.60 /CUMM) 0.7 H Absolute Eosinophils (0.0 - 0.7 /CUMM) 0 Absolute Basophils (0.0 - 0.2 /CUMM) 0 Platelet Estimate (ADEQUATE) ADEQUATE Normocytic RBCs VERIFIED Normochromic RBCs VERIFIED Last 24 Hours of Janes Results: Blood cultures November 22 pending Diagnostic Data Recent Imaging Findings: X-ray of the right tibia/fibula revealed soft tissue ulcerations over both medial and lateral malleoli with no soft tissue gas or erosive changes to suggest osteomyelitis. Assessment/Plan Assessment/Plan Impression: This is a 67-year-old man with a history of chronic venous insufficiency, recurrent cellulitis of both lower extremities, status post multiple ablations, with a chronic, nonhealing right medial malleolar ulcer for over 30 years and the more recent onset of a right lateral malleolar ulcer, status post skin grafts to both ulcers 5 weeks prior to admission, hospitalized 3 weeks prior to admission with a left leg cellulitis, status post debridement of both right malleolar ulcers 6 days prior to admission, admitted on November 22 with persistent pain in the right leg and the acute onset of fevers, chills and weakness, found in the emergency room to be febrile with a leukocytosis. The most likely source of his fever is the right leg cellulitis, likely related to the recent debridement and compressive dressings which were placed after the debridement. The most likely pathogens are beta-hemolytic strep and MSSA and, though superficial cultures have grown multiple organisms in the past, these likely represent colonization and treatment for cellulitis typically does not need to target these organisms. Suggestion: 1. Elevation of the right leg 2. Vascular surgery input at some point 3. Continue Unasyn 3 g IV every 6 hours Consult Acknowledgment - Thank you for your consult request.
--- NOTE | 2017-11-22 18:15 | RADIOLOGY REPORT ---
EXAMINATION: XR PORTABLE CHEST CLINICAL INFORMATION: Fever, rule out pneumonia. COMPARISON: X-ray portable chest 10/31/2017, 02/13/2017. TECHNIQUE: Portable frontal view of the chest was obtained. FINDINGS: Hypoventilation and body habitus limits evaluation. No definite focal consolidation, pleural effusion or pneumothorax. Decreased pulmonary vascular congestion. Heart size is likely exaggerated by patient's body habitus and technique, cannot exclude an element of cardiomegaly. No acute or suspicious osseous abnormality. IMPRESSION: No definite acute pulmonary process on this limited examination.
[2017-11-22 23:10] VITALS: BP 100/64
[2017-11-23 06:59] VITALS: BP 138/82
--- NOTE | 2017-11-23 07:51 | PN- Housestaff ---
Yecenia Cross 11/23/17 0751: Subjective Follow-up For: RLE cellulitis Lactic acidosis Subjective: No complaints or acute events overnight Review of Systems Constitutional: Reports: see HPI. Objective Last 24 Hrs of Vital Signs/I&O Vital Signs Date Time Temp Pulse Resp B/P B/P Pulse O2 O2 Flow FiO2 Mean Ox Delivery Rate 11/23 0659 98.2 90 18 138/82 96 Room Air 11/22 2310 98.6 78 18 100/64 97 Room Air 11/22 1908 99.9 11/22 1809 101.6 11/22 1611 99.1 74 18 110/70 98 11/22 1426 103 16 105/69 95 Room Air 11/22 1350 99.0 80 20 100 Room Air 11/22 1303 99.2 88 105/73 11/22 1206 100.6 11/22 1206 100.6 11/22 1136 101.3 90 22 120/66 11/22 1129 100.1 Intake & Output 11/23 1600 11/23 0800 11/23 0000 Intake Total 1450 2200 Output Total 200 300 Balance 1250 1900 Intake, IV 1200 1900 Intake, Oral 250 300 Output, Urine 200 300 Patient 304 lb Weight Physical Exam General Appearance: Alert, Oriented X3, Cooperative, No Acute Distress Cardiovascular: Regular Rate, Normal S1, Normal S2 Lungs: Clear to Auscultation, Normal Air Movement Abdomen: Normal Bowel Sounds, Soft, No Tenderness Extremities: RLE erythema, warmth, skin tightness, tenderness Assessment/Plan Assessment: Mr. Silverman is a 67-year-old male with past medical history of venous insufficiency followed by Dr. Manuel, DVT in the left leg 3-4 years ago, obesity, and recurrent cellulitis with history of Pseudomonas, MSSA, and Serratia who came in for pain in his legs. Problem list: 1. Sepsis with lactic acidosis 2. Cellulitis Plan: Continue IV Unasyn Follow final wound culture report for beta strep Group A RLE Doppler ultrasound to r/o DVT Patient will need LE ablations and possibly repeat right ilocaval gram outpatient as per Vascular ID recommendations appreciated Vascular recommendations appreciated DVT prophylaxis with enoxaparin Regular diet Full code Problem List: 1. Cellulitis 2. Sepsis Pain Ratin Pain Location: NA Pain Goal: Remain pain free Pain Plan: NA Tomorrow's Labs & Rationales: none Austin Gongora MD 11/23/17 1249: Attending MD Review Statement Attending Statement Attending MD Statement: examined this patient, discuss w/resident/PA/BRANCH SERVICE SPECIALIST, agreed w/resident/PA/BRANCH SERVICE SPECIALIST, reviewed EMR data (avail) Attending Assessment/Plan: 67M PMH hypertension, chronic venous stasis ulcer, status post multiple skin graft, history of left lower extremity DVT on February 2015 currently not on anticoagulation admitted for sepsis secondary to LLE cellulitis following skin graft, with history of cellulitis growing Serratia and Pseudomonas. Febrile 104 in ED, appears ill, multiple leg ulcers with erythema, tachycardic, WBC 14, lactate 3. Improved today. Looks and feels better, lactate resolved, afebrile, WBC 7, cultures growing beta strep. 1. Sepsis secondary to LLE streptococcal cellulitis 2. History of skin graft Plan - Continue on general medicine - Continue Unasyn - ID, vascular, and wound consults - Leg elevation - Continue home medications - Follow cultures - DVT PPx
[2017-11-23 08:56] LABS: ABSOLUTE BASOPHIL COUNT 0 /CUMM (0.0-0.2); ABSOLUTE EOSINOPHIL COUNT 0 /CUMM (0.0-0.7); ABSOLUTE GRANULOCYTE CT 7.8 /CUMM (1.4-6.5); ABSOLUTE LYMPH COUNT 1.1 /CUMM (1.2-3.4); ABSOLUTE MONOCYTE COUNT 0.6 /CUMM (0.10-0.60); BASOPHIL % 0.4 % (0.0-2.0); EOSINOPHIL % 0.1 % (0-5); GRANULOCYTE % 81.4 % (42.2-75.2); MEAN CORPUSCULAR HGB 31.8 PG (27.0-31.0); MEAN CORPUSCULAR HGB CONC 33.5 G/DL (33.0-37.0); MEAN PLATELET VOLUME 9.1 FL (7.4-10.4); PLATELET COUNT 171 /CUMM (130-400); RBC DISTRIBUTION WIDTH 14.3 % (11.5-14.5); RED BLOOD CELL CT 4.31 /CUMM (4.70-6.10); WHITE BLOOD CELL COUNT 9.6 /CUMM (4.8-10.8)
--- NOTE | 2017-11-23 11:14 | Cons- Vascular Surgery ---
General Information and HPI Consulting Request Date of Consult: 11/23/17 Requested By: Austin Gongora MD Reason for Consult: RIGHT LEG CELLULITIS Source of Information: patient, family History of Present Illness: 67 Y/O M W/ Hx of obesity and extensive history of bilateral venous stasis and swelling. Pt has been followed by Dr. Manuel. He has had bilateral superficial venous ablations and previous iliocaval venogram and right iliac vein stenting. Pt is followed by Dr. Manuel in wound center. Was recently admitted with cellulitis of left leg in oct. now admitted again to [facility] this time with cellulitis of right leg. began 2 days ago with high fever and right leg erythema. wbc of 14. currenlty on iv abx. cellulitis is improving. fever trending downwards. leg not significantly swollen. he has right lateral and medial malleloar wounds with some fibirnous exudate. Allergies/Medications Allergies: Coded Allergies: bacitracin (Severe, HIVES 02/13/17) ceftriaxone (From ROCEPHIN) (Severe, HIVES 02/13/17) doxycycline (Severe, HIVES 02/13/17) erythromycin base (Severe, HIVES 02/13/17) gentamicin (Severe, HIVES 02/13/17) Uncoded Allergies: MEDS WHICH ENDS WITH "BASILIO" (Severe, HIVES 03/02/11) DETERGENTS (RASH 05/31/14) Home Med List: Furosemide 20 MG TABLET 1 TAB PO DAILY fluid overload (Reported) Potassium Chloride (Klor-Con M10) 10 MEQ TAB.ER.PRT 2 TAB PO DAILY supplements (Reported) Testosterone Cypionate 200 MG/ML VIAL 1 ML IM Q 3 WEEKS HRT (Reported) Past History Medical History Neurological: NONE EENT: NONE Cardiovascular: chronic venous insuff Respiratory: NONE Gastrointestinal: GERD Hepatic: NONE Renal: NONE Musculoskeletal: osteoporosis Psychiatric: NONE Endocrine: NONE Blood Disorders: DVT (right leg) Cancer(s): NONE 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 Home Services at Home: None Smoking Status: Never Smoked Functional Ability ADLs Independent: dressing, eating, toileting, bathing. Ambulation: independent IADLs Independent: shopping, housework, finances, food prep, telephone, transportation , medication admin. Review of Systems Review of Systems: 12 point review of symptoms performed. notable for bilateral leg swelling. Exam & Diagnostic Data Vital Signs and I&O Vital Signs Date Time Temp Pulse Resp B/P B/P Pulse O2 O2 Flow FiO2 Mean Ox Delivery Rate 11/23 0659 98.2 90 18 138/82 96 Room Air 11/22 2310 98.6 78 18 100/64 97 Room Air 11/22 1908 99.9 11/22 1809 101.6 11/22 1611 99.1 74 18 110/70 98 11/22 1426 103 16 105/69 95 Room Air 11/22 1350 99.0 80 20 100 Room Air 11/22 1303 99.2 88 105/73 11/22 1206 100.6 11/22 1206 100.6 11/22 1136 101.3 90 22 120/66 11/22 1129 100.1 Intake & Output 11/23 1600 11/23 0800 11/23 0000 11/22 1600 11/22 0800 11/22 0000 Intake Total 1450 2200 2150 Output Total 200 300 250 Balance 1250 1900 1900 Intake, IV 1200 1900 1750 Intake, Oral 250 300 400 Output, Urine 200 300 250 Patient 304 lb 310 lb Weight Weight Reported by Patient Measurement Method nad soft,nt,nd rrr bilateal feet wwp. strongly palpable dp pulses. right leg with some pre tibial erythema. medial and lateral maleloar wounds with fibrinous exudate. Last 24 Hours of Labs: Laboratory Tests 11/23 11/22 0747 1841 Chemistry Sodium (137 - 145 mmol/L) 141 Potassium (3.5 - 5.1 mmol/L) 3.6 Chloride (98 - 107 mmol/L) 107 Carbon Dioxide (22 - 30 mmol/L) 25 Anion Gap (5 - 16) 8 BUN (9 - 20 mg/dL) 15 Creatinine (0.7 - 1.2 mg/dL) 0.8 Estimated GFR (>60 ml/min) > 60 BUN/Creatinine Ratio (7 - 25 %) 18.8 Lactic Acid (0.7 - 2.1 mmol/L) 1.3 Hematology CBC w Diff NO MAN DIFF REQ WBC (4.8 - 10.8 /CUMM) 9.6 RBC (4.70 - 6.10 /CUMM) 4.31 L Hgb (14.0 - 18.0 G/DL) 13.7 L Hct (42 - 52 %) 41.0 L MCV (80.0 - 94.0 FL) 95.0 H MCH (27.0 - 31.0 PG) 31.8 H MCHC (33.0 - 37.0 G/DL) 33.5 RDW (11.5 - 14.5 %) 14.3 Plt Count (130 - 400 /CUMM) 171 MPV (7.4 - 10.4 FL) 9.1 Gran % (42.2 - 75.2 %) 81.4 H Lymphocytes % (20.5 - 51.1 %) 11.9 L Monocytes % (1.7 - 9.3 %) 6.2 Eosinophils % (0 - 5 %) 0.1 Basophils % (0.0 - 2.0 %) 0.4 Absolute Granulocytes (1.4 - 6.5 /CUMM) 7.8 H Absolute Lymphocytes (1.2 - 3.4 /CUMM) 1.1 L Absolute Monocytes (0.10 - 0.60 /CUMM) 0.6 Absolute Eosinophils (0.0 - 0.7 /CUMM) 0 Absolute Basophils (0.0 - 0.2 /CUMM) 0 11/22 11/22 1503 1500 Chemistry Lactic Acid (0.7 - 2.1 mmol/L) 2.1 Urines Urine Color (YEL,AMB,STR) YEL Urine Clarity (CLEAR) CLEAR Urine pH (5.0 - 8.0) 6.0 Ur Specific [place] (1.001 - 1.035) 1.015 Urine Protein (NEG,<30 MG/DL) TRACE H Urine Ketones (NEG) NEG Urine Nitrite (NEG) NEG Urine Bilirubin (NEG) NEG Urine Urobilinogen (0.1 - 1.0 EU/dl) 0.2 Ur Leukocyte Esterase (NEG) NEG Ur Microscopic SEDIMENT EXAMINED Urine RBC (0 - 5 /HPF) RARE Urine WBC (0 - 2 /HPF) 1-3 H Ur Epithelial Cells (NONE,FEW) FEW Urine Mucus (FEW,NONE) MOD H Urine Hemoglobin (NEG) NEG Urine Glucose (N MG/DL) NEG 11/22 1218 Hematology CBC w Diff MAN DIFF ORDERED WBC (4.8 - 10.8 /CUMM) 14.0 H RBC (4.70 - 6.10 /CUMM) 4.95 Hgb (14.0 - 18.0 G/DL) 15.6 Hct (42 - 52 %) 46.9 MCV (80.0 - 94.0 FL) 94.7 H MCH (27.0 - 31.0 PG) 31.5 H MCHC (33.0 - 37.0 G/DL) 33.3 RDW (11.5 - 14.5 %) 14.1 Plt Count (130 - 400 /CUMM) 225 MPV (7.4 - 10.4 FL) 8.5 Gran % (42.2 - 75.2 %) 91.0 H Lymphocytes % (20.5 - 51.1 %) 3.7 L Monocytes % (1.7 - 9.3 %) 5.1 Eosinophils % (0 - 5 %) 0.1 Basophils % (0.0 - 2.0 %) 0.1 Absolute Granulocytes (1.4 - 6.5 /CUMM) 12.7 H Segmented Neutrophils (42.2 - 75.2 %) 89 H Band Neutrophils (0.0 - 5.0 %) 4 Absolute Lymphocytes (1.2 - 3.4 /CUMM) 0.5 L Lymphocytes (20.5 - 51.1 %) 2 L Monocytes (1.7 - 9.3 %) 5 Absolute Monocytes (0.10 - 0.60 /CUMM) 0.7 H Absolute Eosinophils (0.0 - 0.7 /CUMM) 0 Absolute Basophils (0.0 - 0.2 /CUMM) 0 Platelet Estimate (ADEQUATE) ADEQUATE Normocytic RBCs VERIFIED Normochromic RBCs VERIFIED Imaging Results: reviewed Assessment/Plan Assessment/Plan 67 y/o m w/ hx of chronic venous stasis with recurrent cellulitis now with right lower extremity cellulitis. -continue abx per ID -continue local wound care with telfa/kerlex. would wrap leg in christine for compression and elevate leg. -pt can fu with dr. manuel in the wound center upon discharge. will need left leg ablations and possibly repeat right ilocaval gram. please call with questions. Consult Acknowledgment - Thank you for your consult request.
--- NOTE | 2017-11-23 11:40 | ULTRASOUND REPORT ---
EXAMINATION: US TRIPLEX LOWER EXTREMITY, RIGHT CLINICAL INFORMATION: 67-year-old male with bilateral lower extremity swelling and pain. COMPARISON: Lower extremity venous Doppler 10/31/2017 TECHNIQUE: Color-flow triplex imaging with spectral analysis and compression Doppler were performed on the lower extremity. FINDINGS: Respiratory variation, normal compression and augmented flow are noted throughout the lower extremity. The visualized common femoral vein, superficial femoral vein, profunda femoral vein, popliteal vein and midcalf peroneal and posterior tibial venous segments show no evidence of deep venous thrombosis. There is a 2.8 x 0.8 x 1.7 cm cyst within the popliteal fossa consistent with a Baron's cyst. IMPRESSION: 1. No evidence of deep venous thrombosis involving the lower extremity. 2. Small Baron's cyst.
--- NOTE | 2017-11-23 13:47 | PN- Infect Dx ---
Subjective Subjective: MAXIMUM TEMPERATURE 101.6. He feels improved today with no complaints. Objective Last 24 Hrs of Vital Signs/I&O Vital Signs Date Time Temp Pulse Resp B/P B/P Pulse O2 O2 Flow FiO2 Mean Ox Delivery Rate 11/23 0659 98.2 90 18 138/82 96 Room Air 11/22 2310 98.6 78 18 100/64 97 Room Air 11/22 1908 99.9 11/22 1809 101.6 11/22 1611 99.1 74 18 110/70 98 11/22 1426 103 16 105/69 95 Room Air 11/22 1350 99.0 80 20 100 Room Air Intake & Output 11/23 1600 11/23 0800 11/23 0000 Intake Total 1450 2200 Output Total 200 200 300 Balance -200 1250 1900 Intake, IV 1200 1900 Intake, Oral 250 300 Output, Urine 200 200 300 Patient 304 lb Weight Physical Exam Other Physical Findings: He appears well in no acute distress Extremities decreased erythema of the right lower extremity, with no edema or tenderness on palpation; dressing intact over the right ankle; left leg with no inflammation Results Last 24 Hours of Lab Results: Laboratory Tests 11/23 11/22 0747 1841 Chemistry Sodium (137 - 145 mmol/L) 141 Potassium (3.5 - 5.1 mmol/L) 3.6 Chloride (98 - 107 mmol/L) 107 Carbon Dioxide (22 - 30 mmol/L) 25 Anion Gap (5 - 16) 8 BUN (9 - 20 mg/dL) 15 Creatinine (0.7 - 1.2 mg/dL) 0.8 Estimated GFR (>60 ml/min) > 60 BUN/Creatinine Ratio (7 - 25 %) 18.8 Lactic Acid (0.7 - 2.1 mmol/L) 1.3 Hematology CBC w Diff NO MAN DIFF REQ WBC (4.8 - 10.8 /CUMM) 9.6 RBC (4.70 - 6.10 /CUMM) 4.31 L Hgb (14.0 - 18.0 G/DL) 13.7 L Hct (42 - 52 %) 41.0 L MCV (80.0 - 94.0 FL) 95.0 H MCH (27.0 - 31.0 PG) 31.8 H MCHC (33.0 - 37.0 G/DL) 33.5 RDW (11.5 - 14.5 %) 14.3 Plt Count (130 - 400 /CUMM) 171 MPV (7.4 - 10.4 FL) 9.1 Gran % (42.2 - 75.2 %) 81.4 H Lymphocytes % (20.5 - 51.1 %) 11.9 L Monocytes % (1.7 - 9.3 %) 6.2 Eosinophils % (0 - 5 %) 0.1 Basophils % (0.0 - 2.0 %) 0.4 Absolute Granulocytes (1.4 - 6.5 /CUMM) 7.8 H Absolute Lymphocytes (1.2 - 3.4 /CUMM) 1.1 L Absolute Monocytes (0.10 - 0.60 /CUMM) 0.6 Absolute Eosinophils (0.0 - 0.7 /CUMM) 0 Absolute Basophils (0.0 - 0.2 /CUMM) 0 11/22 11/22 1503 1500 Chemistry Lactic Acid (0.7 - 2.1 mmol/L) 2.1 Urines Urine Color (YEL,AMB,STR) YEL Urine Clarity (CLEAR) CLEAR Urine pH (5.0 - 8.0) 6.0 Ur Specific [place] (1.001 - 1.035) 1.015 Urine Protein (NEG,<30 MG/DL) TRACE H Urine Ketones (NEG) NEG Urine Nitrite (NEG) NEG Urine Bilirubin (NEG) NEG Urine Urobilinogen (0.1 - 1.0 EU/dl) 0.2 Ur Leukocyte Esterase (NEG) NEG Ur Microscopic SEDIMENT EXAMINED Urine RBC (0 - 5 /HPF) RARE Urine WBC (0 - 2 /HPF) 1-3 H Ur Epithelial Cells (NONE,FEW) FEW Urine Mucus (FEW,NONE) MOD H Urine Hemoglobin (NEG) NEG Urine Glucose (N MG/DL) NEG Last 24 Hours of Janes Results: Blood cultures 2 November 22 negative Right foot superficial culture November 22 positive for heavy growth of beta strep Group A Recent Imaging Studies: Doppler of the right lower extremity negative for DVT Assessment/Plan ID Impression: Improved, with temperatures and white blood cell count decreased, on Unasyn Day 2 of treatment for right lower extremity cellulitis in the setting of recent debridement of both the medial and lateral malleolar ulcers of the right foot. The superficial culture for Group A strep is of unclear significance but it will be covered by the Unasyn. Suggestion: 1. Continue elevation of the right leg 2. Continue Unasyn but, if continues to improve, can change to Augmentin 875 mg po every 12 hours to complete a 5-7 day course of treatment
[2017-11-23 14:09] VITALS: BP 130/72
[2017-11-23 22:45] VITALS: BP 119/72
[2017-11-24 06:49] VITALS: BP 140/86
--- NOTE | 2017-11-24 07:30 | PN- Housestaff ---
Subjective Follow-up For: R ankle cellulitis Lactic acidosis - resolved Subjective: No complaints or acute events overnight Review of Systems Constitutional: Reports: see HPI. Objective Last 24 Hrs of Vital Signs/I&O Vital Signs Date Time Temp Pulse Resp B/P B/P Pulse O2 O2 Flow FiO2 Mean Ox Delivery Rate 11/24 0649 98.5 72 20 140/86 95 Room Air 11/23 2245 98.9 75 119/72 94 11/23 1409 98.0 73 20 130/72 96 Intake & Output 11/24 1600 11/24 0800 11/24 0000 Intake Total 700 580 Output Total 1625 Balance -925 580 Intake, IV 200 100 Intake, Oral 500 480 Output, Urine 1625 Patient 306 lb Weight Weight Bed scale Measurement Method Physical Exam General Appearance: Alert, Oriented X3, Cooperative, No Acute Distress Cardiovascular: Regular Rate, Normal S1, Normal S2 Lungs: Clear to Auscultation, Normal Air Movement Abdomen: Normal Bowel Sounds, Soft, No Tenderness Extremities: Right ankle medial and lateral healing ulcerative lesion with minimal yellowish drainage. Current Medications: Current Medications Sig/Phillip Start time Last Medication Dose Route Stop Time Status Admin Acetaminophen 975 MG .STK-MED ONE 11/23 2040 DC PO 11/23 2041 Acetaminophen 975 MG Q8P PRN 11/22 1815 AC 11/24 PO 0516 Amoxicillin/ 875 MG Q12 11/24 1000 AC Clavulanate Potassium PO Ampicillin Sodium/ 3,000 MG Q6 11/22 1800 DC 11/24 Sulbactam Sodium IV 0516 Sodium Chloride 100 ML Enoxaparin Sodium 40 MG DAILY 11/22 1600 AC 11/24 SC 0757 Furosemide 20 MG DAILY 11/24 1000 AC 11/24 PO 0757 Ibuprofen 600 MG Q6P PRN 11/22 1445 AC PO Morphine Sulfate 2 MG Q6P PRN 11/22 1445 AC 11/22 IV 1543 Sodium Chloride 1,000 ML Q6H 11/22 1700 DC 11/23 IV 0306 Sodium Chloride 4,082.34 ML ONCE 11/22 1015 AC 11/22 IV 1130 Assessment/Plan Assessment: Mr. Silverman is a 67-year-old male with past medical history of venous insufficiency followed by Dr. Manuel, DVT in the left leg 3-4 years ago, obesity, and recurrent cellulitis with history of Pseudomonas, MSSA, and Serratia who came in for pain in his legs. Problem list: 1. Lactic acidosis - resolved 2. Cellulitis Plan: Change IV Unasyn to PO Amoxicillin/Clavulanate Follow final wound culture report for beta/alpha strep Group A and GPC RLE Doppler ultrasound r/o DVT Patient will need LE ablations and possibly repeat right ilocaval gram outpatient as per Vascular ID recommendations appreciated Vascular recommendations appreciated Patient stable for dc today DVT prophylaxis with enoxaparin Regular diet Full code Problem List: 1. Cellulitis Pain Ratin Pain Location: NA Pain Goal: Remain pain free Pain Plan: NA Tomorrow's Labs & Rationales: None
[2017-11-24] MEDS ORDERED: AMOX-CLAV 875-1 EACH PO (09:15)
[2017-11-24] MEDS ORDERED: TYLENOL325 M1 PO (09:15)
--- NOTE | 2017-11-24 09:17 | Patient Discharge Instructions ---
Discharge Instructions General Discharge Information You were seen/treated for: R ankle cellulitis You had these procedures: none Special Instructions: Follow up with wound care clinic for an appointment Follow up with your PCP within 1-2 weeks after discharge Diet Recommended Diet: Heart Healthy Activity Other activity limits: As tolerated Acute Coronary Syndrome Inclusion Criteria At DC or during hospital stay patient has or had the following: ACS DIAGNOSIS No Discharge Core Measures Meds if any: Prescribed or Continued at Discharge Meds if any: NOT Prescribed or Continued at Discharge Congestive Heart Failure Inclusion Criteria At DC or during hospital stay patient has or had the following: CHF DIAGNOSIS No Discharge Core Measures Meds if any: Prescribed or Continued at Discharge Meds if any: NOT Prescribed or Continued at Discharge Cerebrovascular accident Inclusion Criteria At DC or during hospital stay patient has or had the following: CVA/TIA Diagnosis No Discharge Core Measures Meds if any: Prescribed or Continued at Discharge Meds if any: NOT Prescribed or Continued at Discharge Venous thromboembolism Inclusion Criteria VTE Diagnosis No VTE Type NONE VTE Confirmed by (Test) NONE Discharge Core Measures - Per Current guidelines, there needs to be overlap - treatment for the first 5 days of Warfarin therapy. - If discharged on Warfarin prior to 5 days of - overlap therapy, the patient will need to be - assessed for post discharge needs including - *Post discharge parental anticoagulation - *Warfarin and/or parental anticoagulation education - *Follow up date to check INR post discharge At least 5 days overlap therapy as Inpatient No Meds if any: Prescribed or Continued at Discharge Note: Overlap Therapy is Warfarin and Anticoagulant Meds if any: NOT Prescribed or Continued at Discharge
--- NOTE | 2017-11-24 13:14 | Discharge Summary ---
Visit Information Visit Dates Admission Date: 11/22/17 Discharge Date: 11/24/17 Hospital Course Course Attending Physician: Austin Gongora MD Primary Care Physician: Bee ESCOBEDO,Torey Camacho Hospital Course: Mr. Silverman is a 67-year-old male with past medical history of venous insufficiency followed by Dr. Manuel, DVT in the left leg 3-4 years ago, obesity, and recurrent cellulitis with history of Pseudomonas, MSSA, and Serratia who presented to the ED with right leg pain Vital signs: T 100.1, HR 84, RR 16, BP 119/68, saturating 96% on room air. Temperature increased to 101.3. Laboratories were significant for what blood cell count 14.0, 4 bands, bicarbonate 21, lactic acid 3.0 with negative troponin Problem list: 1. R ankle Cellulitis ID and Vascular were consulted. XR right foot showed soft tissue ulceration overlying both the medial and lateral malleoli of the right ankle. He remained stable. Patient was started on IV broad spectrum antibiotics and eventually transitioned to oral antibiotics. Wound cultures grew alpha/beta strep Group A and Staph aureus. Patient reported proximal right lower extremity pain and a right lower extremity doppler ultrasound ruled out DVT. Upon discharge patient was instructed to follow up with Vascular for lower extremity ablations and possibly repeat right ilocaval gram Allergies: Coded Allergies: bacitracin (Severe, HIVES 02/13/17) ceftriaxone (From ROCEPHIN) (Severe, HIVES 02/13/17) doxycycline (Severe, HIVES 02/13/17) erythromycin base (Severe, HIVES 02/13/17) gentamicin (Severe, HIVES 02/13/17) Uncoded Allergies: MEDS WHICH ENDS WITH "BASILIO" (Severe, HIVES 03/02/11) DETERGENTS (RASH 05/31/14) Pertinent Lab Results: 11/22/17-1006 XRY-PORTABLE CHEST XRAY FINDINGS: Hypoventilation and body habitus limits evaluation. No definite focal consolidation, pleural effusion or pneumothorax. Decreased pulmonary vascular congestion. Heart size is likely exaggerated by patient's body habitus and technique, cannot exclude an element of cardiomegaly. No acute or suspicious osseous abnormality. IMPRESSION: No definite acute pulmonary process on this limited examination. 11/22/17-1133 [id number], RIGHT FINDINGS: Soft tissue ulceration seen overlying both the medial and lateral malleolus of the right ankle. There is soft tissue swelling. Beyond the soft tissue gas associated with the medial ulcer, there is no additional soft tissue gas noted. No erosive osseous changes. No fracture or cortical disruption. Alignment is maintained at the knee and ankle. IMPRESSION: Soft tissue ulceration overlying both the medial and lateral malleoli of the right ankle. No additional soft tissue gas or erosive osseous changes to suggest osteomyelitis. 11/23/17 US-UNILATERAL VENOUS DOPPLER IMPRESSION: 1. No evidence of deep venous thrombosis involving the lower extremity. 2. Small Baron's cyst. Disposition Summary Disposition Principal Diagnosis: R ankle cellulitis Additional Diagnosis: Lactic acidosis Discharge Disposition: home or self care Discharge Instructions General Discharge Information Code Status: Full Code Patient's Diet: Heart healthy Patient's Activity: As tolerated Follow-Up Instructions/Appts: Follow up with wound care clinic for an appointment Follow up with your PCP within 1-2 weeks after discharge Medications at Discharge Discharge Medications: Continue taking these medications: Furosemide (Furosemide) 20 MG TABLET 1 Tablet ORAL DAILY Days = 90 Comments: Last Taken: 11/24/17 Time: 8:00 am Potassium Chloride (Klor-Con M10) 10 MEQ TAB.ER.PRT 2 Tablet ORAL DAILY Days = 60 Comments: NOT GIVEN WHILE IN HOSPITAL Testosterone Cypionate (Testosterone Cypionate) 200 MG/ML VIAL 1 Milliliters INTRAMUSC EVERY 3 WEEKS Qty = 4 Comments: NOT GIVEN WHILE IN HOSPITAL Start taking the following new medications: Amoxicillin/Clavulanate Potass (Amox-Clav 875-125 MG Tablet) 875 MG-125 MG TABLET 875 Milligram ORAL EVERY 12 HOURS Qty = 9 No Refills Comments: Last Taken: 11/24/17 Time: 11:00 am Acetaminophen (Tylenol) 325 MG TABLET 975 Milligram ORAL EVERY 8 HOURS NEEDED as needed for Fever/Pain Qty = 10 No Refills Comments: Last Taken: 11/24/17 Time: 5:00 am Copies To: Bee ESCOBEDO,Torey Camacho; Brenda ESCOBEDO,Emeka Webster Attending MD Review Statement Documenting Attending: Austin Gongora MD Other Findings: Superficial foot culture returned post-discharge as growing mRSA and strep. The patient improved dramatically on Unasyn, and the superficial culture results were thought to be colonization, given his rapid improvement. He will not be treated for mRSA as such, and will be monitored as an outpatient. We will notify his PCP.
== END 2017-11-24 12:45 | DRG 603 ==
LOC: ERH 09:49 → ERHI 12:42 → 2NA 12:42 → ENRESERV 14:29 → ENTRNSPT 14:55 → 2NA 15:31 → CMPTRNSPT 15:51 → ENPENDDIS 11-24 11:46 → ENTRNSPT 11-24 12:28 → CMPTRNSPT 11-24 12:33 → 2NA 11-24 12:45
PROVIDERS: Emergency Medicine; Student in an Organized Health Care Education/Training Program
DX: L03.115 Cellulitis of right lower limb (principal); E87.2 Acidosis; L97.319 Non-pressure chronic ulcer of right ankle with unspecified severity; I87.2 Venous insufficiency (chronic) (peripheral); E66.9 Obesity, unspecified; Z68.37 Body mass index [BMI] 37.0-37.9, adult; K21.9 Gastro-esophageal reflux disease without esophagitis; M81.0 Age-related osteoporosis without current pathological fracture; Z88.1 Allergy status to other antibiotic agents; M79.605 Pain in left leg; M79.604 Pain in right leg; Z96.659 Presence of unspecified artificial knee joint; Z86.718 Personal history of other venous thrombosis and embolism; Z96.649 Presence of unspecified artificial hip joint
CPT/HCPCS: 2NASP; 87184; 36592; 71045; 73590-RT; 81001; 82436; 87040; 87070; 87147; 93005; 93010; 96374; 96375; J0131; J1650; J1885